=== PATIENT | female | born 2000 | race Caucasian/White ===

== ENCOUNTER 2020-03-18 16:54 | Emergency (ER) | payer OTHER, SELFPAY ==
[2020-03-18 17:15] VITALS: BP 124/86; PULSE 120; RESP 16; TEMP 37.2; O2SAT 98
--- NOTE | 2020-03-18 17:15 | PC.NURSE ---
bite report faxed to [facility] animal control
--- NOTE | 2020-03-18 17:27 | ED.ANIMALBIT ---
HPI - Animal Bite General Chief Complaint: Animal Bite Stated Complaint: amb Time Seen by Provider: 03/18/20 17:27 Source: patient Mode of arrival: ambulatory Limitations: no limitations History of Present Illness HPI narrative: 19-year-old woman brought in today by EMS in today complaining of a dog bite to her left medial ankle. Patient states that her dog was fighting with another dog and she tried to intervene and in doing so was bitten. She denies any numbness, tingling or weakness. She states her immunizations are up-to-date. Within the last week or so she had a positive test at home. complaint: animal bite Onset (ago): hour(s) (2) Animal: dog Description of animal: household pet Mechanism: bite Location - Extremities: Left: ankle Pain description: sharp Context: animals fighting Associated symptoms: bleeding Treatments prior to arrival: wound dressing(s) Related Data Patient tetanus UTD: Yes Home Medications Medication Instructions Recorded Confirmed No Home Medications 03/18/20 03/18/20 Allergies Allergy/AdvReac Type Severity Reaction Status Date / Time No Known Allergies Allergy Verified 03/18/20 17:21 Review of Systems Constitutional: Constitutional: Denies chills and Denies fever(s) Cardiovascular: Cardiovascular: Denies chest pain and Denies radiating jaw, neck or arm pain Respiratory: Respiratory: Denies cough and Denies dyspnea Gastrointestinal: Gastrointestinal: Denies abdominal pain and Denies nausea Integumentary/Breasts: Skin/Breast: Denies pruritus, Denies erythema and Denies rash Neurologic: Denies focal weakness and Denies numbness Hematologic/Lymphatic: Hematologic/Lymphatic: Denies easy bleeding and Denies easy bruising Allergic/Immunologic: Allergic/Immunologic: Denies lip swelling and Denies wheezing [facility] Social History Social History Smoking status: Current every day smoker Alcohol intake: never Substance use: never Exam Const: General: healthy appearing and alert Orientation/consciousness: patient oriented x3 Limitations: no limitations Other: Mild acute distress. Anxious. HENMT: Head: normal to inspection Face and sinus: normal facial exam Eyes: Conjunctivae: conjunctivae normal Pupils: Equal, round and reactive pupils present EOM: EOMs intact bilaterally Resp: Effort & Inspection: normal respiratory effort and not labored Auscultation: clear to auscultation bilaterally, no rales, no rhonchi and no wheezes Cardio: Rate: regular rate Rhythm: regular rhythm Heart sounds: no murmurs Skin: General skin exam: normal color, no jaundice and no pallor Rashes: no rashes Other: 2 cm laceration on the medial ankle. There are a few small puncture wounds present as well as abrasions and bruising. No bleeding, erythema, swelling or induration. Neuro: General: patient oriented x3, moves all extremities, no focal motor deficits and CN's II-XI intact bilaterally Speech: normal speech Gait exam (Neuro): Normal gait present Extrem: General: normal to inspection and no clubbing, cyanosis or edema Psych: Appearance: grossly normal and well kempt Mental Status: mental status grossly normal Affect: normal affect and Anxious affect present Thought content: Yes Normal thought content present Course Vital Signs Vital signs: Vital Signs Temperature 37.2 C 03/18/20 17:15 Pulse Rate 120 H 03/18/20 17:15 Respiratory Rate 16 03/18/20 17:15 Blood Pressure 124/86 03/18/20 17:15 Pulse Oximetry 98 03/18/20 17:15 Temperature 37.2 C 03/18/20 17:15 Pulse Rate 120 H 03/18/20 17:15 Respiratory Rate 16 03/18/20 17:15 Blood Pressure 124/86 03/18/20 17:15 Pulse Oximetry 98 03/18/20 17:15 Discharge Plan Discharge Clinical Impression: Dog bite Patient Disposition: Home, Self-Care Condition: Stable Instructions: Animal Bite (ED) Additional Instruction
== END 2020-03-18 17:47 | disposition home or self-care (01) ==
PROVIDERS: Emergency Provider Emergency Medicine
DX: S91.052A Open bite, left ankle, initial encounter (principal); W54.0XXA Bitten by dog, initial encounter
CPT/HCPCS: 99283

== ENCOUNTER 2022-06-13 13:04 | Emergency (ER) | payer OTHER, SELFPAY ==
--- NOTE | 2022-06-13 13:19 | ED.FEMALEGU ---
HPI - Female Genitourinary General Chief complaint: Urogenital-Female Stated complaint: dr sent patient to er Time Seen by Provider: 06/13/22 13:06 Source: patient and RN notes reviewed Mode of arrival: ambulatory Limitations: no limitations History of Present Illness HPI Narrative: patient had gone her health technical writer was diagnosed with a urinary tract infection started on antibiotics. She only took 1 dose last evening. She was then called by the health technical writer and told to come to the emergency room if she had worsening pain or fever. She said she had a fever at home. She has been having some nausea no vomiting. She had bilateral flank pain. MD elicited complaint: UTI and flank pain Onset (ago): day(s) (5-7) Severity: moderate Quality of pain: dull and aching Consistency: constant Vaginal discharge: none Vaginal bleeding: none Urinary symptoms: Dysuria, Urgency and Frequency Exacerbating factors: urination Relieving factors: none Associated symptoms: fever, chills and nausea Possible : unsure if Related Data Home Medications Medication Instructions Recorded Confirmed bupropion HCl 150 mg 24 hr tablet, 150 mg PO DAILY 06/13/22 06/13/22 extended release venlafaxine 75 mg capsule,extended 75 mg PO DAILY 06/13/22 06/13/22 release 24 hr Allergies Allergy/AdvReac Type Severity Reaction Status Date / Time No Known Allergies Allergy Verified 03/18/20 17:21 Review of Systems Review of Systems: All systems reviewed & are unremarkable except as noted in HPI and below PMFSH Past Medical History Medical History (Updated 06/13/22 @ 14:33 by Franky Winston MD) Depression Surgical History Surgical History (Updated 06/13/22 @ 13:23 by Franky Winston MD) History of incision and drainage Social History Social History Smoking status: Current every day smoker Alcohol intake: never Substance use: never Course Vital Signs Vital signs: Vital Signs Temperature 39.0 C H 06/13/22 13:22 Pulse Rate 136 H 06/13/22 13:22 Respiratory Rate 20 06/13/22 13:22 Blood Pressure 162/86 H 06/13/22 13:22 Pulse Oximetry 100 06/13/22 13:22 Oxygen Delivery Room Air 06/13/22 13:22 Temperature 37.7 C H 06/13/22 14:58 Pulse Rate 87 06/13/22 14:58 Respiratory Rate 20 06/13/22 14:58 Blood Pressure 118/70 06/13/22 14:58 Pulse Oximetry 97 06/13/22 14:58 Oxygen Delivery Room Air 06/13/22 14:58 MDM - Female Genitourinary Differential Diagnosis Differential diagnosis: Likely urinary tract infection, cystitis and other ( pyelonephritis) Lab Data Attestation: I reviewed the patient's lab results. Result diagrams: 06/13/22 13:38 06/13/22 13:38 Labs: Lab Results 06/13/22 06/13/22 06/13/22 Range/Units 13:24 13:27 13:38 WBC 11.8 H (4.8-10.8) K/mm3 RBC 3.97 L (4.20-5.40) M/mm3 Hgb 11.9 L (12.0-15.0) g/dL Hct 35.7 (35.0-49.0) % MCV 89.9 (78.0-102.0) fL MCH 30.0 (27.0-31.0) pg MCHC 33.3 (32.0-36.0) g/dL RDW 12.0 (11.6-14.4) % Plt Count 233 (150-420) K/mm3 MPV 10.3 (9.2-11.8) fl Immature Gran % (Auto) 0.3 H (0.0-0.0) % Neut % (Auto) 80.1 H (50.0-70.0) % Lymph % (Auto) 10.5 L (18.0-42.0) % [place] % (Auto) 8.5 (2.0-11.0) % Eos % (Auto) 0.3 L (1.0-6.0) % Baso % (Auto) 0.3 (0.0-1.0) % Lymph # (Auto) 1.23 (1.10-4.50) K/mm3 [place] # (Auto) 1.00 H (0.10-0.90) K/mm3 Eos # (Auto) 0.03 (0.02-0.50) K/mm3 Baso # (Auto) 0.03 (0.00-0.10) K/mm3 Abs Immat Gran (auto) 0.04 H (0.00-0.00) K/mm3 Absolute Neuts (auto) 9.4 H (1.7-7.2) K/mm3 Absolute Nucleated RBC 0.00 (0.00-0.00) K/mm3 Nucleated RBC % 0.0 (0-0.0) % Sodium (136-145) mmol/L Potassium (3.5-5.1) mmol/L Chloride (98-108) mmol/L Carbon Dioxide (21-32) mmol/L Anion Gap (8-16) mmol/L BUN (7-18) m
[2022-06-13 13:22] VITALS: BP 162/86; PULSE 136; RESP 20; TEMP 39; O2SAT 100
--- NOTE | 2022-06-13 13:24 | PC.NURSE ---
PCT assisted Dr with examination.
[2022-06-13 13:34] LABS: Appearance Urine Clear (Clear); Bilirubin Urine Negative (Negative); Glucose Urine UA Negative (Negative); Ketones Urine Negative (Negative); Leukocyte Esterase Ur Trace LEU/UL (Negative); Nitrate Urine Negative (Negative); Protein Urine Negative (Negative); Specific Grav Ur 1.015 (1.010-1.020); Urobilinogen Urine 0.2 mg/dL (0.2-1.0)
[2022-06-13] MEDS: IBUPROFEN 600 MG TABLET PO (13:34)
[2022-06-13 13:38] LABS: Pregnancy On Board Control Positive; Urine Pregnancy Test Negative
[2022-06-13 13:43] LABS: Add Urine Microscopic? YES; Bacteria Urine 1+ /hpf; Blood Urine Trace-Intact (Negative); Color Urine Light Yellow (Yellow); Squamous Epithelial Cell Urine Rare /hpf (Few)
[2022-06-13 13:44] LABS: Basophils Absolute Auto 0.03 K/mm3 (0.00-0.10); Basophils Percent Auto 0.3 % (0.0-1.0); Eosinophils Absolute Auto 0.03 K/mm3 (0.02-0.50); Eosinophils Percent Auto 0.3 % (1.0-6.0); Hematocrit 35.7 % (35.0-49.0); Hemoglobin 11.9 g/dL (12.0-15.0); Immature Granulocyte Absolute 0.04 K/mm3 (0.00-0.00); Immature Granulocyte Percent A 0.3 % (0.0-0.0); Lymphocytes Absolute Auto 1.23 K/mm3 (1.10-4.50); Lymphocytes Percent Auto 10.5 % (18.0-42.0); Mean Corpuscular HGB Conc 33.3 g/dL (32.0-36.0); Mean Corpuscular Volume 89.9 fL (78.0-102.0); Mean Platelet Volume 10.3 fl (9.2-11.8); Monocytes Percent Auto 8.5 % (2.0-11.0); Neutrophils Absolute Auto 9.4 K/mm3 (1.7-7.2); Neutrophils Percent Auto 80.1 % (50.0-70.0); Platelet Count Result 233 K/mm3 (150-420); Red Blood Count 3.97 M/mm3 (4.20-5.40); White Blood Count 11.8 K/mm3 (4.8-10.8)
[2022-06-13 13:58] LABS: Alanine Aminotransferase 13 U/L (14-59); Albumin Level 3.5 g/dL (3.4-5.0); Alkaline Phosphatase 72 U/L (46-116); Anion Gap 6 mmol/L (8-16); Aspartate Amino Transferase < 10 U/L (15-37); Bilirubin,Total 0.3 mg/dL (0.00-1.00); Blood Urea Nitrogen 6 mg/dL (7-18); CRP 8.9 mg/dL (0.0-0.9); Calcium 8.7 mg/dL (8.5-10.1); Carbon Dioxide 26 mmol/L (21-32); Chloride 103 mmol/L (98-108); Estimated CRCL calculation 86 ml/min; Estimated Glomerular Filt Rate > 60; Glucose 107 mg/dL (70-99); Osmolality Calculated 277 mOsm/kg (285-295); Potassium 3.8 mmol/L (3.5-5.1); Sodium 135 mmol/L (136-145); Total Protein 7.8 g/dL (6.4-8.2)
[2022-06-13 14:06] VITALS: TEMP 38.6
--- NOTE | 2022-06-13 14:09 | PC.NURSE ---
pt resting per cot, playing with cell phone, friend at bedside.
[2022-06-13] MEDS: cefTRIAXone 1 GM, LIDOCAINE HCL 1% LOCAL INJ 2.1 ML IM (14:52)
[2022-06-13 14:58] VITALS: BP 118/70; PULSE 87; RESP 20; TEMP 37.7; O2SAT 97
== END 2022-06-13 15:04 | disposition home or self-care (01) ==
PROVIDERS: Emergency Provider Emergency Medicine
DX: N30.01 Acute cystitis with hematuria (principal)
CPT/HCPCS: 36415; 80053; 81001; 81025; 83605; 85025; 86140; 87040; 96372; 99283; A9270; J0696

== ENCOUNTER 2024-08-09 17:44 | Emergency (ER) | payer OTHER, SELFPAY ==
[2024-08-09 17:45] VITALS: BP 136/80; PULSE 88; RESP 14; TEMP 36.4; O2SAT 98
--- NOTE | 2024-08-09 17:54 | ED_ITS ---
HPI - Dental/Oral General Chief complaint: Dental/Oral Stated complaint: dental pain Time Seen by Provider: 08/09/24 17:48 Source: patient Mode of arrival: ambulatory Limitations: no limitations History of Present Illness HPI Narrative: Patient drove herself to the emergency room complaining of frontal upper dental pain started 2 days ago. Patient denies any fever, chills, nausea, vomiting, headache, trouble swallowing or breathing or recent trauma. Last time was seen by a dentist 1 year ago with a lot of dental caries management. Related Data Home Medications ?Medication ?Instructions ?Recorded ?Confirmed ?Last Taken ?Type guanfacine 1 mg tablet,extended 1 mg PO QPM 08/09/24 08/09/24 Unknown History release 24 hr Allergies Allergy/AdvReac Type Severity Reaction Status Date / Time No Known Allergies Allergy Verified 08/09/24 17:50 Review of Systems Review of Systems: All systems reviewed & are unremarkable except as noted in HPI and below PMFSH Past Medical History Medical History Depression Surgical History Surgical History History of incision and drainage Social History Social History Smoking status: Current every day smoker Alcohol intake: never Substance use: never Exam Narrative: General appearance: Well-developed, well-nourished Skin: Normal color Head: Normocephalic, nontraumatic Eyes: Clear conjunctiva ENT: upper gum showing localize gingivitis at the front incisors, no abscess formation, no discharge, no bleeding Neck: Supple, nontender Neurologic: Alert and oriented ?3, MATERIAL CONTROL CLERK is normal as tested, no gross motor deficit MDM - Dental/Oral MDM Narrative Medical decision making narrative: gingivitis, dental infection is my concern Differential Diagnosis Differential diagnosis: Likely dental caries and toothache Critical Care Time Critical Care Time Critical Care Time: No Discharge Plan Discharge Clinical Impression: Toothache, Gingivitis Patient Disposition: Home, Self-Care Condition: Stable Instructions: Antibiotic Form, Gingivitis (ED), Toothache (ED) Additional Instructions: Return if symptoms are worsening , call your family physician for appointment, take Tylenol as as needed for aches and pain, continue home medications. Patient Language: Estonian Prescriptions: New ibuprofen [IBU] 800 mg tablet 800 mg PO TID Qty: 20 0RF penicillin V potassium 500 mg tablet 500 mg PO Q6H Qty: 40 0RF No Action guanfacine 1 mg tablet extended release 24 hr 1 mg PO QPM Follow-up/Referrals: UNKNOWN,DOCTOR [Primary Care Provider] - Stand Alone Forms: Work/School Release IP
--- OUTSIDE RECORDS SUMMARY | 2024-08-16 21:33 | XMS_ITS | Encounter Summary ---
Author Organization [facility] Address [address] [place] [address]. [place], [place] [id number] [place] [id number] Care Team Providers Care Tool Filer Hand Name Role Phone None, Provider Primary Care Provider Unavaila ble Encounter Details Date Type Department Care Team (Latest Contact Info) Description 06/30/2020 Travel Social History Tobacco Use Types Packs/Day Years Used Date Smoking Tobacco: Every Day Cigarettes 0.5 5 Smokeless Tobacco: Never Alcohol Use Standard Drinks/Week Comments No 0 (1 standard drink = 0.6 oz pur e alcohol) AUDIT-C Answer Date Recorded Frequency of Alcohol Consumption Never 05/23/2019 Average Number of Drinks Not on file 019 Frequency of Binge Drinking Not on file 05/12 Comments Yes Sex and Gender Information Value Date Recorded Sex Assigned at Not on file Legal 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 No / Unsure 06/30/2020 2:20 AM STEM MOUNTER documented as of this encounter Plan of Treatment Not on file documented as of this encounter Visit Diagnoses Not on filedocumented in this encounter Care Teams Tool Filer Hand Relationship Specialty Start Date End Date None, Provider, PCP - General 05/23/19 documented as of this encounter
--- OUTSIDE RECORDS SUMMARY | 2024-08-16 21:33 | XMS_ITS | Encounter Summary ---
Author Organization [facility] Address [address] [place] [address]. [place], [place] [id number] [place] [id number] Care Team Providers Care Family Law Specialist Name Role Phone None, Provider Primary Care Provider Unavaila ble Encounter Details Date Type Department Care Team (Latest Contact Info) Description 01/25/2020 Travel Social History Tobacco Use Types Packs/Day Years Used Date Smoking Tobacco: Every Day Cigarettes 0.5 5 Smokeless Tobacco: Never Alcohol Use Standard Drinks/Week Comments No 0 (1 standard drink = 0.6 oz pur e alcohol) AUDIT-C Answer Date Recorded Frequency of Alcohol Consumption Never 05/23/2019 Average Number of Drinks Not on file 019 Frequency of Binge Drinking Not on file 05/12 Comments No Sex and Gender Information Value Date Recorded Sex Assigned at Not on file Legal 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 No / Unsure 01/25/2020 4:01 PM CDT documented as of this encounter Plan of Treatment Not on file documented as of this encounter Visit Diagnoses Not on filedocumented in this encounter Care Teams Family Law Specialist Relationship Specialty Start Date End Date None, Provider, PCP - General 05/23/19 documented as of this encounter
--- OUTSIDE RECORDS SUMMARY | 2024-08-16 21:33 | XMS_ITS | Encounter Summary ---
Author Organization [facility] Address [address] [place] [address]. [place] [address] [place] [address] Care Team Providers Care Slagger Name Role Phone None, Provider MD Primary Care Provider Unavaila ble Reason for Referral * (Routine) - Closed Specialty Diagnoses / Procedures Referred By Contdanny t Referred To Contact Procedures LACERATION REPAIR Gilles Abbott DO Phone: tel: fax: Referral ID Status Reason Start Date Expiration Date Visits Re quested Visits Authorized [id number] Closed 05/23/2019 06/23/2020 1 1 Reason for Visit * Reason Comments Laceration left wrist Encounter Details Date Type Department Care Team (Late st Contact Info) Description 05/23/2019 12:55 AM CDT - 05/23/2019 2:14 AM CDT Emergency [place] [facility] [place] [address] Gilles Abbott DO [address] [place] [address] Laceration (left wrist) Discharge Disposition: Home or Self Care (Routine Discharge) Social History Tobacco Use Types Packs/Day Years Used Date Smoking Tobacco: Every Day Cigarettes 0.5 5 Smokeless Tobacco: Never Tobacco Cessation:Ready to Q uit: No; Counseling Given: No Alcohol Use Standard Drinks/Week Comments No 0 (1 standard drink = 0.6 oz pur e alcohol) AUDIT-C Answer Date Recorded Frequency of Alcohol Consumption Never 05/23/2019 Average Number of Drinks Not on file Frequency of Binge Drinking Not on file 05/12 Comments No Sex and Gender Information Value Date Recorded Sex Assigned at Not on file 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 Gender Identity Not on file Sexual Orientation Not on file documented as of this encounter Last Filed Vital Signs Vital Sign Reading Time Taken Comments Blood Pressure 144/87 05/23/2019 12:54 AM CDT Pulse 124 05/23/2019 12:54 AM CDT Temperature - - Respiratory Rate 22 05/23/2019 12:54 AM CDT Oxygen Saturation 99% 05/23/2019 12:57 AM CDT Inhaled Oxygen Concentration - - Weight 61.2 kg (135 lb) 05/23/2019 12:54 AM CDT Height 154.9 cm (5' 1 ) 05/23/2019 12:54 AM CDT Body Mass Index 25.51 05/23/2019 12:54 AM CDT documented in this encounter Discharge Instructions * Discharge Instructions* Gilles Abbott DO - 05/23/2019 1:52 AM CDT Leave dressing in place for 24 hours. After removing the dressing, you can leave stitches open to air. You should cover them if they are likely to be disturbed by your activity. Once the dressing is removed, you can shower and let water run over the stitches, but do not soak the stitches under water such as swimming or bathing. Your stitches will need to be removed in 7-10 days. * Attachments The following attachments cannot be sent through Care Everywhere. * Laceration Repair With Stitches Discharge Instructions (Stateless) documented in this encounter ED Notes * Zenia Martinez RN - 05/23/2019 2:08 AM CDT put 8 sutures in. Site cleansed and dressing applied * Gilles Abbott DO - 05/23/2019 1:04 AM CDTAssociated Order(s): Lac Repair Chief Complaint Chief Complaint Patient presents with ??? Laceration left wrist History of Present Illness 18-year-old female presents the emergency department with a laceration of her left forearm. The patient states that she was opening a box of light bulbs from [facility] when she accidentally cut her arm with a hot box spotter. She denies any attempt to harm herself. She reports that she ran the wound under warm water for less than 5 minutes prior to coming to the emergency department. She deniesany loss of function of her wrist or hand. She reports that otherwise she has been in her normal state of health. 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 No pertinent past medical history. PAST SURGICAL HISTORY: History reviewed. No pertinent surgical history. FAMILY HISTORY: Family History Family history unknown: Yes SOCIAL HISTORY: Social History Tobacco Use ??? Smoking status: Current Every Day Smoker Packs/day: 0.50 Years: 5.00 Pack years: 2.50 Types: Cigarettes ??? Smokeless tobacco: Never Used Substance Use Topics ??? Alcohol use: No Frequency: Never ??? Drug use: No Review of Systems Review of Systems All other systems reviewed and are negative. Physical Exam Filed Vitals: 05/23/19 0054 05/23/19 0057 BP: 144/87 Pulse: 124 Resp: 22 SpO2: 99% 99% Weight: 61.2 kg (135 lb) Height: 5' 1 (1.549 m) Physical Exam Constitutional: She is oriented to person, place, and time. She appears well- developed and well-nourished. No distress. HENT: Head: Normocephalic and atraumatic. Eyes: Conjunctivae are normal. Pulmonary/Chest: Effort normal and breath sounds normal. No respiratory distress. Neurological: She is alert and oriented to person, place, and time. Skin: She is not diaphoretic. 8 cm laceration of the distal ventral forearm perpendicular to the arm Psychiatric: She has a normal mood and affect. Her behavior is normal. Judgment and thought contentnormal. Nursing note and vitals reviewed. Diagnostic Studies / Procedures ELECTROCARDIOGRAMS: No results found for this visit on 05/23/19. LABORATORY STUDIES: No results found for this visit on 05/23/19. IMAGING STUDIES No orders to display Lac Repair Date/Time: 05/23/2019 1:50 AM Performed by: Gilles Abbott DO Authorized by: Gilles Abbott DO Consent: Consent obtained: Verbal Consent given by: Patient Risks discussed: Infection, pain and poor cosmetic result Alternatives discussed: No treatment and delayed treatment Anesthesia (see MAR for exact dosages): Anesthesia method: Local infiltration Local anesthetic: Lidocaine 1% WITH epi Laceration details: Location: Shoulder/arm Shoulder/arm location: L lower arm Length (cm): 8 Repair type: Repair type: Simple Pre-procedure details: Preparation: Patient was prepped and draped in usual sterile fashion Exploration: Hemostasis achieved with: Epinephrine and direct pressure Wound exploration: wound explored through full range of motion and entire depth of wound probed andvisualized Wound extent: no fascia violation noted, no foreign bodies/material noted, no muscle damage noted, no nerve damage noted, no tendon damage noted and no vascular damage noted Contaminated: no Treatment: Area cleansed with: Betadine Amount of cleaning: Standard Skin repair: Repair method: Sutures Suture size: 4-0 Suture material: Nylon Suture technique: Simple interrupted Number of sutures: 8 Approximation: Approximation: Close Post-procedure details: Dressing: Antibiotic ointment and non-adherent dressing Patient tolerance of procedure: Tolerated well, no immediate complications ED Course / Medical Decision Making MDM Number of Diagnoses or Management Options Laceration of left upper extremity, initial encounter: new and does not require workup Risk of Complications, Morbidity, and/or Mortality Presenting problems: moderate Diagnostic procedures: minimal Management options: minimal Patient Progress Patient progress: improved Clinical Impression Laceration of left upper extremity, initial encounter (Primary) Disposition: Discharge Gilles Abbott DO 05/23/19 0157 * Aurea Singer RN - 05/23/2019 12:57 AM CDT Cutting box open and cut left wrist 3 in lac to left wrist documented in this encounter Plan of Treatment Not on file documented as of this encounter Procedures Procedure Name Priority Date/Time Associated Diagnosis Comments LACERATION REPAIR Routine 05/23/2019 1:0 4 AM CDT documented in this encounter Results * Lac Repair (05/23/2019 1:04 AM CDT) Narrative Gilles Abbott DO - 05/23/2019 1:04 AM CDT Gilles Abbott DO ? 05/23/2019 ??1:57 AM Lac Repair Date/Time: 05/23/2019 1:50 AM Performed by: Gilles Abbott DO Authorized by: Gilles Abbott DO Consent: ??Consent obtained: ??Verbal ??Consent given by: ??Patient ??Risks discussed: ??Infection, pain and poor cosmetic result ??Alternatives discussed: ??No treatment and delayed treatment Anesthesia (see MAR for exact dosages): ??Anesthesia method: ??Local infiltration ??Local anesthetic: ??Lidocaine 1% WITH epi Laceration details: ??Location: ??Shoulder/arm ??Shoulder/arm location: ??L lower arm ??Length (cm): ??8 Repair type: ??Repair type: ??Simple Pre-procedure details: ??Preparation: ??Patient was prepped and draped in usual sterile fashion Exploration: ??Hemostasis achieved with: ??Epinephrine and direct pressure ??Wound exploration: wound explored through full range of motion and entire depth of wound probed and visualized ?Wound extent: no fascia violation noted, no foreign bodies/material noted, no muscle damage noted, no nerve damage noted, no tendon damage noted and no vascular damage noted ?Contaminated: no ?? Treatment: ??Area cleansed with: ??Betadine ??Amount of cleaning: ??Standard Skin repair: ??Repair method: ??Sutures ??Suture size: ??4-0 ??Suture material: ??Nylon ??Suture technique: ??Simple interrupted ??Number of sutures: ??8 Approximation: ??Approximation: ??Close Post-procedure details: ??Dressing: ??Antibiotic ointment and non-adherent dressing ??Patient tolerance of procedure: ??Tolerated well, no immediate complications Gilles Abbott DO PROCEDURE/MINOR SURGICAL ORDERAB LES Final Result documented in this encounter Visit Diagnoses Diagnosis Laceration of left upper extremity, initial encounter- Primary documented in this encounter Administered Medications Inactive Administered Medications - up to 3 most recent administrations Medication Order MAR Action Action Date Dose Rate Site lidocaine-EPINEPHrine 1 %-1:172034 injection 1 mL 1 mL, Other, Once, 1 dose, On 05/23/19 at 0200 Given 05/23/2019 1:58 AM CDT 1 mL ioybvuet-whkwkilccu-jhgvzgxxk (NEOSPORIN) ointment Topical, Once, 1 dose, On 05/23/19 at 0200 Given 05/23/2019 1:58 AM CDT documented in this encounter Active and Recently Administered Medications Times are shown in CDT. Scheduled Medication Order 05/21/2019 05/22/2019 05/23/2019 lidocaine-EPINEPHrine 1 %-1:312323 injection 1 mL (COMPLETED) 1 mL, Other, Once, 1 dose, On 05/23/19 at 0200 0158 (Given - Provid er: Zenia Martinez RN) tumgjhjq-dhquqmbbop-kiextehei (NEOSPORIN) ointment (COMPLETED) Topical, Once, 1 dose, On 05/23/19 at 0200 0158 (Given - Provid er: Zenia Martinez RN) documented in this encounter Care Teams Slagger Relationship Specialty Start Date End Date None, Provider, PCP - General 05/23/19 documented as of this encounter
--- OUTSIDE RECORDS SUMMARY | 2024-08-16 21:33 | XMS_ITS | Encounter Summary ---
Author Organization [facility] Address [address] [place] [address]. [place] [address] [place] [address] Care Team Providers Care Deck Worker Name Role Phone None, Provider Primary Care Provider Unavaila ble Reason for Visit * Reason Comments Animal Bite Encounter Details Date Type Department Care Team (Late st Contact Info) Description 01/25/2020 4:23 PM CDT - 01/25/2020 6:55 PM CDT Emergency [facility] [place] [address] Diego Velasquez MD [address] [place] [id number] Animal Bite Discharge Disposition: Home or Self Care (Routine [...] on file Legal Sex Female 5:53 PM 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 No / Unsure 01/25/2020 4:01 PM CDT documented as of this encounter Last Filed Vital Signs Vital Sign Reading Time Taken Comments Blood Pressure 110/77 01/25/2020 6:00 PM CDT Pulse 80 01/25/2020 4:23 PM CDT Temperature 36.6 ??C (97.8 ??F) 01/25/2020 4:23 PM CD T Respiratory Rate 20 01/25/2020 4:23 PM CDT Oxygen Saturation 100% 01/25/2020 6:00 PM CDT Inhaled Oxygen Concentration - - Weight 61.2 kg (135 lb) 01/25/2020 4:23 PM CDT Height 154.9 cm (5' 1 ) 01/25/2020 4:23 PM CDT Body Mass Index 25.51 01/25/2020 4:23 PM CDT documented in this encounter Discharge Instructions * Discharge Instructions* Diego Velasquez MD - 01/25/2020 5:45 PM CDT You need repeat rabies shot in 3 days, 7 days and 14 days * Attachments The following attachments cannot be sent through Care Everywhere. * Animal Bites Discharge Instructions (Mauritanian) * Rabies Discharge Instructions (Mauritanian) documented in this encounter Medications at Time of Discharge amoxicillin-clavu lanate (AUGMENTIN) 875-125 MG tablet Take 1 tablet (875 mg total) by mouth 2 (two) times daily for 10 days. 20 tablet 01/25/2020 02/04/2020 documented as of this encounter ED Notes * Diego Velasquez MD - 01/25/2020 6:55 PM CDT Chief Complaint Chief Complaint Patient presents with ??? Animal Bite History of Present Illness 19-year-old dog bite since Saturday night to the right hand. Patient was bitten by a stray dog. Patient denies fever since Saturday. Patient does not remember her last tetanus shot. There is no way for the patient to track down the stray dog. Medical History ALLERGIES: No Known Allergies MEDICATIONS: Prior to Admission medications Medication Sig Start Date End Date Taking? Authorizing Provider amoxicillin-clavulanate (AUGMENTIN) 875-125 MG tablet Take 1 tablet (875 mg total) by mouth 2 (two)times daily for 10 days. 01/25/20 02/04/20 Yes Diego Velasquez MD PAST MEDICAL HISTORY: History reviewed. No pertinent [...] No Review of Systems Review of Systems Constitutional: Negative for fever. HENT: Negative for voice change. Respiratory: Negative for wheezing. Skin: Positive for wound. Neurological: Negative for speech difficulty. Psychiatric/Behavioral: Negative for agitation. All other systems reviewed and are negative. Physical Exam Filed Vitals: 01/25/20 1623 01/25/20 1630 01/25/20 1730 01/25/20 1800 BP: 116/77 113/73 109/70 110/77 Pulse: 80 Resp: 20 Temp: 97.8 ??F (36.6 ??C) TempSrc: Temporal SpO2: 99% 99% 98% 100% Weight: 61.2 kg (135 lb) Height: 5' 1 (1.549 m) Physical Exam Constitutional: She appears well-developed. HENT: Head: Atraumatic. Eyes: EOM are normal. Neck: Normal inspection Cardiovascular: Normal rate and regular rhythm. No murmur heard. Pulmonary/Chest: Breath sounds normal. No stridor. No respiratory distress. She has no wheezes. Abdominal: She exhibits no distension. Musculoskeletal: She exhibits no edema. Right hand-puncture wound noted in the thenar aspect as well as the volar aspect of the proximal phalanx and the volar aspect of the distal phalanx, there is also a puncture wound on the dorsal webspace of the first and second metacarpal, wounds are dry with no bleeding, wounds are partially healing with no surrounding erythema, patient has full range of motion of the right thumb MCP and PIP joint, normal capillary refill of the distal right thumb Neurological: She is alert. She exhibits normal muscle tone. Skin: Skin is dry. Psychiatric: She has a normal mood and affect. Diagnostic Studies / Procedures ELECTROCARDIOGRAMS: No results found for this visit on 01/25/20. LABORATORY STUDIES: No results found for this visit on 01/25/20. IMAGING STUDIES XR HAND RT 3V Final Result by User, [id number] (01/24 1655) 01/25/2020, 0641 hours. HISTORY: Dog bite near base of the thumb. EXAM: AP, lateral and oblique views of the right hand. No comparison. FINDINGS: No fracture or acute bony abnormality. No arthritic change. No gross bone destruction. No opaque foreign material nor gas seen within the soft tissues. IMPRESSION: No acute bony abnormality. Interpreted By: Deniz Fowler MD, 01/25/2020 4:50 PM ED Course / Medical Decision Making MDM Number of Diagnoses or Management Options Dog bite, initial encounter: new and requires workup Rabies, unspecified rabies type: new and requires workup Amount and/or Complexity of Data Reviewed Tests in the radiology section of CPT??: ordered and reviewed Risk of Complications, Morbidity, and/or Mortality Presenting problems: moderate Diagnostic procedures: moderate Management options: moderate Patient Progress Patient progress: stable Clinical Impression Dog bite, initial encounter (Primary) Rabies, unspecified rabies type Discharged on Augmentin, patient will need to return to the ED for rabies series Disposition: Discharge Diego Velasquez MD 01/26/20 0423 * Isadora Ricardo RN - 01/25/2020 6:45 PM CDT Bandaids applied to wounds * Isadora Ricardo RN - 01/25/2020 6:25 PM CDT Apprx 3.2 ml injected subcutaneous around wounds (3 areas) on right hand. Pt tolerated fairly well. Remainder 5 ml given IM in two separate injections in both deltoids. * Ailyn Gunderson RN - 01/25/2020 4:24 PM CDT PT C/O DOG BITE TO RT HAND. PT REPORTS WAS BITTEN BY STRAY DOG ON Saturday. documented in this encounter Plan of Treatment Not on file documented as of this encounter Procedures Procedure Name Priority Date/Time Associated Diagnosis Comments XR HAND RT 3V STAT 01/25/2020 4:47 PM CDT documented in this encounter Results * XR HAND RT 3V (01/25/2020 4:47 PM CDT) Anatomical Region Laterality Modality Hand Radiographic Kami ging 01/25/2020 4:50 PM CDT Impressions 01/25/2020 4:54 PM CDT IMPRESSION: No acute bony abnormality. Interpreted By: Deniz Fowler MD, 01/25/2020 4:50 PM Narrative 01/25/2020 4:54 PM CDT 01/25/2020, 0641 hours. HISTORY: Dog bite near base of the thumb. EXAM: AP, lateral and oblique views of the right hand. No comparison. FINDINGS: No fracture or acute bony abnormality. No arthritic change. No gross bone destruction. No opaque foreign material nor gas seen within the soft tissues. Procedure Note Deniz Fowler MD - 01/25/2020 01/25/2020, 0641 hours. HISTORY: Dog bite near base of the thumb. EXAM: AP, lateral and oblique views of the right hand. No comparison. FINDINGS: No fracture or acute bony abnormality. No arthritic change. No gross bone destruction. No opaque foreign material nor gas seen withinthe soft tissues. IMPRESSION: No acute bony abnormality. Interpreted By: Deniz Fowler MD, 01/25/2020 4:50 PM Diego Velasquez MD GENERAL IMAGING Final Result documented in this encounter Visit Diagnoses Diagnosis Dog bite, initial encounter- Primary Rabies, unspecified rabies type ([facility]) documented in this encounter Administered Medications Inactive Administered Medications - up to 3 most recent administrations Medication Order MAR Action Action Date Dose Rate Site amoxicillin-clavulanate (AUGMENTIN) 875-125 MG tablet 875 mg 875 mg, Oral, Once, 1 dose, On 01/25/20 at 1730 Given 01/25/2020 6:19 PM CDT 875 mg rabies immune globulin (HYPERRAB) injection 1,230 Units 1,230 Units (rounded from 1,224 Units = 20 Units/kg ? 61.2 kg), Intramuscular, Once, 1 dose, On Sat01/25/20 at 1800 Given 01/25/2020 6:17 PM CDT 1,230 Units Other rabies vaccine (RABAVERT) injection 1 mL 1 mL, Intramuscular, Once, 1 dose, On Franca 01/28/20 at 0000 rabies vaccine (RABAVERT) injection 1 mL 1 mL, Intramuscular, Once, 1 dose, On Sat02/01/20 at 0000 rabies vaccine (RABAVERT) injection 1 mL 1 mL, Intramuscular, Once, 1 dose, On Sat02/08/20 at 0000 documented in this encounter Active and Recently Administered Medications Times are shown in CDT. Scheduled Medication Order 01/23/2020 01/24/2020 01/25/2020 amoxicillin-clavulanate (AUGMENTIN) 875-125 MG tablet 875 mg (COMPLETED) 875 mg, Oral, Once, 1 dose, On Sat01/25/20 at 1730 1819 (Given - Provid er: Isadora Ricardo RN) rabies immune globulin (HYPERRAB) injection 1,230 Units (COMPLETED) 1,230 Units (rounded from 1,224 Units = 20 Units/kg ? 61.2 kg), Intramuscular, Once, 1 dose, On Sat01/25/20 at 1800 1817 (Given - Provid er: Isadora Ricardo RN - Comment: rt hand and left deltoid) rabies vaccine (RABAVERT) injection 1 mL 1 mL, Intramuscular, Once, 1 dose, On Franca 01/28/20 at 0000 rabies vaccine (RABAVERT) injection 1 mL 1 mL, Intramuscular, Once, 1 dose, On Sat02/01/20 at 0000 rabies vaccine (RABAVERT) injection 1 mL 1 mL, Intramuscular, Once, 1 dose, On Sat02/08/20 at 0000 documented in this encounter Care Teams Deck Worker Relationship Specialty Start Date End Date None, Provider, PCP - General 05/23/19 documented as of this encounter
--- OUTSIDE RECORDS SUMMARY | 2024-08-16 21:33 | XMS_ITS | Encounter Summary ---
Author Organization [facility] Address [facility] [place] [address] [place] [address] Care Team Providers Care Outsole Compressor Name Role Phone Unavailable Primary Care Provider Unavailabl e Encounter Details Date Type Department Care Team (Late st Contact Info) Description 07/31/2018 Abstract [facility] [address] [address] April Pickett MD [address] [place] [address], [address] [place] [address] Social History Tobacco Use Types Packs/Day Years Used Date Smoking Tobacco: Never Assessed Comments Unknown Sex and Gender Information Value Date Recorded Sex Assigned at Not on file Legal Sex Female 5:53 PM REAL ESTATE 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 Gender Identity Not on file Sexual Orientation Not on file documented as of this encounter Plan of Treatment Not on file documented as of this encounter Procedures Procedure Name Priority Date/Time Associated Diagnosis Comments STREP A, DNA Routine 07/31/2018 3:55 PM REAL ESTATE COORDINATOR RAPID STREP A STAT 07/31/2018 3:55 PM REAL ESTATE COORDINATOR documented in this encounter Results * STREP A, DNA (07/31/2018 3:55 PM REAL ESTATE COORDINATOR) SPEC DESCRIPTION THROAT 07/31/2018 5:13 PM REAL ESTATE COORDINATOR [facility] SPECIAL REQUESTS NO SPECIAL REQUEST 07/31/2018 5:13 PM REAL ESTATE COORDINATOR [facility] RESULT NEGATIVE 07/31/2018 6:11 PM REAL ESTATE COORDINATOR [facility] THROAT SWAB / Unknown 07/31/2018 3:55 PM REAL ESTATE COORDINATOR 07/31/2018 5:12 PM REAL ESTATE COORDINATOR us Generic Conversion Md [facility] - GENERAL ORDERABLES Final Result Performing Organization Address City/[facility]/ZIP Co de Phone Number [facility] [address] [place] [address], * RAPID STREP A (07/31/2018 3:55 PM REAL ESTATE COORDINATOR) SPEC DESCRIPTION THROAT 07/31/2018 4:57 PM REAL ESTATE COORDINATOR [facility] SPECIAL REQUESTS NO SPECIAL REQUEST 07/31/2018 4:57 PM REAL ESTATE COORDINATOR [facility] RAPID STREP TEST NEGATIVE 07/31/2018 5:12 PM REAL ESTATE COORDINATOR [facility] THROAT SWAB / Unknown 07/31/2018 3:55 PM REAL ESTATE COORDINATOR 07/31/2018 5:00 PM REAL ESTATE COORDINATOR us Generic Conversion Md [facility] - GENERAL ORDERABLES Final Result Performing Organization Address [facility] Co de Phone Number [facility] [address] [place] [address], documented in this encounter Visit Diagnoses Diagnosis Respiratory system disease complicating in second trimester (HHS/HCC) Other current maternal conditions classifiable elsewhere, antepartum documented in this encounter
--- OUTSIDE RECORDS SUMMARY | 2024-08-16 21:33 | XMS_ITS | Encounter Summary ---
Author Organization [facility] Address [address] [place] [address]. [place] [address] [place] [address] Care Team Providers Care Online Tutor Name Role Phone None, Provider Primary Care Provider Unavaila ble Reason for Visit * Reason Comments Laceration Encounter Details Date Type Department Care Team (Late st Contact Info) Description 06/30/2020 2:23 AM IRRIGATING PUMP OPERATOR - 06/30/2020 3:19 AM IRRIGATING PUMP OPERATOR Emergency [facility] [address] [facility] [place] [address] Felix Ramirez MD [address] [place] [id number] Laceration Discharge Disposition: Home or Self Care (Routine [...] on file Legal Sex Female 5:53 PM IRRIGATING PUMP OPERATOR Gender Identity Not on file Sexual Orientation Not on file COVID-19 Exposure Response Date Recorded In the last month, have you been in contact with someone who was confirmed or suspected to have Coronavirus / COVID-19? No / Unsure 06/30/2020 2:20 AM IRRIGATING PUMP OPERATOR documented as of this encounter Last Filed Vital Signs Vital Sign Reading Time Taken Comments Blood Pressure 127/83 06/30/2020 1:57 AM IRRIGATING PUMP OPERATOR Pulse 119 06/30/2020 1:57 AM IRRIGATING PUMP OPERATOR Temperature 36.9 ??C (98.4 ??F) 06/30/2020 1:57 AM CS T Respiratory Rate 16 06/30/2020 1:57 AM IRRIGATING PUMP OPERATOR Oxygen Saturation 99% 06/30/2020 1:57 AM IRRIGATING PUMP OPERATOR Inhaled Oxygen Concentration - - Weight 65.8 kg (145 lb) 06/30/2020 1:57 AM IRRIGATING PUMP OPERATOR Height 154.9 cm (5' 1 ) 06/30/2020 1:57 AM IRRIGATING PUMP OPERATOR Body Mass Index 27.4 06/30/2020 1:57 AM IRRIGATING PUMP OPERATOR documented in this encounter Discharge Instructions * Attachments The following attachments cannot be sent through Care Everywhere. * Laceration Repair With Stitches Discharge Instructions (Egyptian) documented in this encounter Medications at Time of Discharge vitamin, low iron, 27-0.8 MG tablet Take 1 tablet by mouth daily. sertraline 100 MG tablet Take 100 mg by mouth daily. cephALEXin (KEFLEX) 500 MG capsule Take 1 capsule (500 mg total) by mouth 4 (four) times daily for 7 days. 28 capsule 06/30/2020 07/07/2020 documented as of this encounter ED Notes * Ana Hawkins RN - 06/30/2020 2:19 AM CST Pt tripped and feel into a mirror. Laceration to right lateral hand. Happened about an hour ago. GATING PUMP OPERATOR * Felix Ramirez MD - 06/30/2020 1:45 AM CST eMERGENCY dEPARTMENT eNCOUnter CHIEF COMPLAINT Chief Complaint Patient presents with ??? Laceration HPI HPI Zenia Sparks is a 19-year-old female who presents to the ER with a complaint of falling into amirror lacerating her right hand in 2 places. Patient states that she is left-hand dominant and denies any foreign body sensation in the wounds. She states the injury happened about an hour ago. No loss of function or sensation. No other injuries or complaints. ALLERGIES No Known Allergies CURRENT MEDICATIONS Current Outpatient Medications Medication Sig ??? cephALEXin (KEFLEX) 500 MG capsule Take 1 capsule (500 mg total) by mouth 4 (four) times daily for 7 days. ??? vitamin, low iron, 27-0.8 MG tablet Take 1 tablet by mouth daily. ??? sertraline 100 MG tablet Take 100 mg by mouth daily. PAST MEDICAL HISTORY Past Medical History: Diagnosis Date ??? Anxiety ??? Depression SURGICAL HISTORY No past surgical history on file. SOCIAL HISTORY Social History Socioeconomic History ??? Marital status: Single Spouse name: Not on file ??? Number of children: Not on file ??? Years of education: Not on file ??? Highest education level: Not on file Occupational History ??? Not on file Social Needs ??? Financial resource strain: Not on file ??? Food insecurity Worry: Not on file Inability: Not on file ??? Transportation needs Medical: Not on file Non-medical: Not on file Tobacco Use ??? Smoking status: Current Every Day Smoker Packs/day: 0.50 Years: 5.00 Pack years: 2.50 Types: Cigarettes ??? Smokeless tobacco: Never Used Substance and Sexual Activity ??? Alcohol use: No Frequency: Never ??? Drug use: No ??? Sexual activity: Not on file Lifestyle ??? Physical activity Days per week: Not on file Minutes per session: Not on file ??? Stress: Not on file Relationships ??? Social connections Talks on phone: Not on file Gets together: Not on file Attends pres[employer]beterian service: Not on file Active member of club or organization: Not on file Attends meetings of clubs or organizations: Not on file Relationship status: Not on file ??? Intimate partner violence Fear of current or ex partner: Not on file Emotionally abused: Not on file Physically abused: Not on file Forced sexual activity: Not on file Other Topics Concern ??? Not on file Social History Narrative ??? Not on file FAMILY HISTORY Family History Family history unknown: Yes REVIEW OF SYSTEMS Review of Systems All other ROS negative unless noted above in HPI. PHYSICAL EXAM Physical Exam Filed Vitals: 06/30/20 0157 BP: 127/83 Pulse: 119 Resp: 16 Temp: 98.4 ??F (36.9 ??C) TempSrc: Temporal SpO2: 99% Weight: 65.8 kg (145 lb) Height: 5' 1 (1.549 m) The patient is a well developed and well nourished adult female in mild distress, alert and oriented. HEENT: PERRL, EOMI Throat without lesions, mucous membranes moist NECK: Supple without adenopathy or rigidity CHEST: Respirations are easy and unlabored EXT: No clubbing, cyanosis, edema, there is a 2 cm curvilinear laceration to the dorsal webspace between the thumb and right index finger not deep to any tendinous structures no foreign body in the wound. There is a 5 cm gaping laceration to the ulnar aspect of the right hand over the distal metacarpal extending distally to the ulnar aspect of the right fifth finger. No tendon exposure no foreignbody in the wound. All 5 fingers have full range of motion complete flexion and extension against resistance and distal neurovascular exam is intact NEURO: CN II-XII intact, no focal weakness SKIN: No rash or significant lesions EKG RADIOLOGY No orders to display LABS No results found for this visit on 06/30/20. ED MEDICATIONS Medications cephALEXin (KEFLEX) capsule 500 mg (500 mg Oral Given 06/30/20 0305) tvebzfuc-jsrxzeuibi-mcjoyqqeu (NEOSPORIN) ointment ( Topical Given 06/30/20 0305) PROCEDURES Procedures Wounds were cleansed with Betadine and then anesthetized 1% lidocaine with epinephrine. 4 sutures were placed in the smaller laceration and 8 sutures in the larger laceration the patient tolerated the procedure well. Patient is adamant that there is no foreign body in the wound nor did I feel any so we are will not perform an x-ray. CONSULTS: ED COURSE & MEDICAL DECISION MAKING MDM Because of the delay in care and the size lacerations antibiotics have been initiated and a dressing is applied. FINAL IMPRESSION SNOMED CT(R) 1. Laceration of right hand LACERATION OF RIGHT HAND Recheck with your primary care provider in 7 to 10 days for suture removal Discharge Medication List as of 06/30/2020 3:13 AM START taking these medications Details cephALEXin (KEFLEX) 500 MG capsule Take 1 capsule (500 mg total) by mouth 4 (four) times daily for 7 days., Starting Franca 06/30/2020, Until Franca 07/07/2020, Eprescribe Felix Ramirez MD 06/30/20 0323 GATING PUMP OPERATOR documented in this encounter Plan of Treatment Not on file documented as of this encounter Visit Diagnoses Diagnosis Laceration of right hand- Primary Open wound of hand except finger(s) alone, without mention of complication documented in this encounter Administered Medications Inactive Administered Medications - up to 3 most recent administrations Medication Order MAR Action Action Date Dose Rate Site cephALEXin (KEFLEX) capsule 500 mg 500 mg, Oral, Once, 1 dose, On Franca 06/30/20 at 0300 Given 06/30/2020 3:05 AM IRRIGATING PUMP OPERATOR 500 mg merzjour-xpdhlxnmkm-beonwhtye (NEOSPORIN) ointment Topical, Once, 1 dose, On Franca 06/30/20 at 0300 Given 06/30/2020 3:05 AM IRRIGATING PUMP OPERATOR documented in this encounter Active and Recently Administered Medications Times are shown in IRRIGATING PUMP OPERATOR. Scheduled Medication Order 06/28/2020 06/29/2020 06/30/2020 cephALEXin (KEFLEX) capsule 500 mg (COMPLETED) 500 mg, Oral, Once, 1 dose, On Franca 06/30/20 at 0300 0305 (Given - Provid er: Ana Hawkins RN) qqyvwycs-txhwzunqkn-fsouxvqnk (NEOSPORIN) ointment (COMPLETED) Topical, Once, 1 dose, On Franca 06/30/20 at 0300 0305 (Given - Provid er: Ana Hawkins RN) documented in this encounter Care Teams Online Tutor Relationship Specialty Start Date End Date None, Provider, PCP - General 05/23/19 documented as of this encounter
--- OUTSIDE RECORDS SUMMARY | 2024-08-16 21:33 | XMS_ITS | Clinical Summary ---
Author Organization [facility] Address [address] [place] [address]. [place] [address] [place] [address] Care Team Providers Care Product Management Internship Name Role Phone None, Provider MD Primary Care Provider Unavaila ble Allergies No known active allergies Medications sertraline 100 MG tablet Take 100 mg by mouth daily. Active vitamin, low iron, 27-0.8 MG tablet Take 1 tablet by mouth daily. Active Immunizations Name Administration Dates Next Due Rabies (Rabavert) 01/25/2020 Td (TDVAX) 01/25/2020 Social History Tobacco Use Types Packs/Day Years [...] on file Legal Sex Female 5:53 PM LAB REP Gender Identity Not on file Sexual Orientation Not on file Last Filed Vital Signs Vital Sign Reading Time Taken Comments Blood Pressure 127/83 06/30/2020 1:57 AM LAB REP Pulse 119 06/30/2020 1:57 AM LAB REP Temperature 36.9 ??C (98.4 ??F) 06/30/2020 1:57 AM CS T Respiratory Rate 16 06/30/2020 1:57 AM LAB REP Oxygen Saturation 99% 06/30/2020 1:57 AM LAB REP Inhaled Oxygen Concentration - - Weight 65.8 kg (145 lb) 06/30/2020 1:57 AM LAB REP Height 154.9 cm (5' 1 ) 06/30/2020 1:57 AM LAB REP Body Mass Index 27.4 06/30/2020 1:57 AM LAB REP Plan of Treatment Health Maintenance Due Date Last Done Comments Cervical Cancer Screening Pap Smear (Age 21 to 29) Every 3 Years 1999 Cervical Cancer Screening 1999 Annual Physical 2002 Pneumococcal Vaccine: Pediatrics (0 to 5 Years) and At-Risk Patients (6 to 64 Years) (1 of 2 - PCV) 2005 Hepatitis C 2017 Hepatitis B Vaccines (1 of 3 - 19+ 3-dose series) 2018 DTaP, Tdap and Td Vaccines (6 - Tdap) 01/26/2020 01/25/2020, 11/05/2003, 12/31/2000, Additional history exists COVID-19 Vaccine ( season) 2024 Influenza Adult (#1) 2024 06/25/2018, 06/27/20 09 RSV Immunization or 60+ Years (1 - 1-dose 75+ series) 2074 HPV Vaccines Completed 02/18/2013, 11/12, 06/16/2012 Meningococcal Vaccine Completed 05/30/2016, 011 RSV Immunizations Under 20 Months Aged Out No longer eligible based on patient's age to complete this topic Insurance [employer] Care Teams Product Management Internship Relationship Specialty Start Date End Date None, Provider, PCP - General 05/23/19
--- OUTSIDE RECORDS SUMMARY | 2024-08-16 21:33 | XMS_ITS | Encounter Summary ---
Author Organization [facility] Address [address] [place] [address]. [place] [address] [place] [address] Care Team Providers Care Financial Institution Branch Manager Name Role Phone None, Provider Primary Care Provider Unavaila ble Encounter Details Date Type Department Care Team (Late st Contact Info) Description 01/17/2019 Abstract [facility] [address] [place] [address] , Generic Conversion, Social History Tobacco Use Types Packs/Day Years Used Date Smoking Tobacco: Never Assessed Comments Unknown Sex and Gender Information Value Date Recorded Sex Assigned at Not on file Legal Sex Female 5:53 PM HEALTH SCIENCE INSTRUCTOR Gender Identity Not on file Sexual Orientation Not on file documented as of this encounter Plan of Treatment Not on file documented as of this encounter Visit Diagnoses Not on filedocumented in this encounter Care Teams Financial Institution Branch Manager Relationship Specialty Start Date End Date None, Provider, PCP - General 05/23/19 documented as of this encounter
--- OUTSIDE RECORDS SUMMARY | 2024-08-16 21:34 | XMS_ITS | Encounter Summary ---
Author Organization [facility] Address [address] [place] [address]. [place], [place] [address] [place] [address] Care Team Providers Care Talent Manager Name Role Phone Unavailable Primary Care Provider Unavailabl e Encounter Details Date Type Department Care Team (Late st Contact Info) Description 1999 Abstract [facility] [address] [place] [address] , Generic Conversion, Social History Tobacco Use Types Packs/Day Years Used Date Smoking Tobacco: Never Assessed Comments Unknown Sex and Gender Information Value Date Recorded Sex Assigned at Not on file Legal Sex Female 5:53 PM NOTE TAKER Gender Identity Not on file Sexual Orientation Not on file documented as of this encounter Plan of Treatment Not on file documented as of this encounter Visit Diagnoses Not on filedocumented in this encounter
--- OUTSIDE RECORDS SUMMARY | 2024-08-16 21:34 | XMS_ITS | Encounter Summary ---
Author Organization [facility] Address [address] [place] [address]. 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
--- OUTSIDE RECORDS SUMMARY | 2024-08-16 21:34 | XMS_ITS | Encounter Summary ---
Author Organization [facility] Address [address] [place] [address]. 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
--- OUTSIDE RECORDS SUMMARY | 2024-08-16 21:34 | XMS_ITS | Encounter Summary ---
Author Organization [facility] Address [facility] [place] [address] [place] [address] Care Team Providers Care Therapy Aide Name Role Phone Unavailable Primary Care Provider Unavailabl e Encounter Details Date Type Department Care Team (Late st Contact Info) Description 11/07/2017 Abstract [place] [facility] [address] [facility] [place] [address] April Pickett MD [address] [place] [address], [address] [place] [address] Social History Tobacco Use Types Packs/Day Years Used Date Smoking Tobacco: Never Assessed Comments Unknown Sex and Gender Information Value Date Recorded Sex Assigned at Not on file 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 Gender Identity Not on file Sexual Orientation Not on file documented as of this encounter Plan of Treatment Not on file documented as of this encounter Procedures Procedure Name Priority Date/Time Associated Diagnosis Comments STREP A, DNA Routine 11/07/2017 8:22 PM CDT RAPID STREP A STAT 11/07/2017 8:22 PM CDT documented in this encounter Results * STREP A, DNA (11/07/2017 8:22 PM CDT) SPEC DESCRIPTION THROAT 11/07/2017 8:39 PM CDT [facility] SPECIAL REQUESTS NO SPECIAL REQUEST 11/07/2017 8:39 PM CDT [facility] RESULT NEGATIVE 11/07/2017 9:47 PM CDT [facility] THROAT SWAB / Unknown 11/07/2017 8:22 PM CDT 11/07/2017 8:39 PM CDT us Generic Conversion Md [facility] MICROBIOLOGY - GENERAL ORDERABLES Final Result Performing Organization Address City/[facility]/ZIP Co de Phone Number [facility] [address] [place] [address], * RAPID STREP A (11/07/2017 8:22 PM CDT) SPEC DESCRIPTION THROAT 11/07/2017 8:25 PM CDT [facility] SPECIAL REQUESTS NO SPECIAL REQUEST 11/07/2017 8:25 PM CDT [facility] RAPID STREP TEST NEGATIVE 11/07/2017 8:38 PM CDT [facility] THROAT SWAB / Unknown 11/07/2017 8:22 PM CDT 11/07/2017 8:28 PM CDT us Generic Conversion Md [facility] MICROBIOLOGY - GENERAL ORDERABLES Final Result Performing Organization Address City/[facility]/ZIP Co de Phone Number [facility] [address] [place] [address], [place] [phone] documented in this encounter Visit Diagnoses Diagnosis Acute tonsillitis documented in this encounter
--- OUTSIDE RECORDS SUMMARY | 2024-08-16 21:34 | XMS_ITS | Encounter Summary ---
Author Organization [facility] Address [facility] 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 Gender Identity Not on file Sexual Orientation Not on file documented as of this encounter Plan of Treatment Not on file documented as of this encounter Procedures Procedure Name Priority Date/Time Associated Diagnosis Comments URINALYSIS WI REFLEX TO CULTURE STAT 03/23/2018 8:35 PM CDT URINE BACTERIA CULTURE Routine 8 8:35 PM CDT TYPE & SCREEN STAT 03/23/2018 8:21 PM CDT COMPREHENSIVE METABOLIC PANEL STAT 03/23/2018 8:21 PM CDT HCG QUANT (SERUM)-CHORIONIC GONADOTROPIN STAT 03/23/2018 8:21 PM CDT CBC W/DIFF AUTOMATED STAT 03/23/2018 8:21 PM CDT documented in this encounter Results * CULTURE URINE (03/23/2018 8:35 PM CDT) SPEC DESCRIPTION URINE CLEAN CATCH 03/23/2018 8:54 PM CDT [facility] SPECIAL REQUESTS NO SPECIAL REQUEST 03/23/2018 8:54 PM CDT [facility] CULTURE RESULT FEW CONTAMINANTS 03/12 1:20 AM CDT [facility] URINE SPECIMEN OBTAINED BY CLEAN CATCH PROCEDURE / Unknown 03/23/2018 8:35 PM CDT 03/23/2018 8:54 PM CDT us Generic Conversion Md [facility]KS MICROBIOLOGY - GENERAL ORDERABLES Final Result [facility] [address] [place] [address], [place] [phone] [id number] [facility] [address] [place] [address], [place] [phone] * (ABNORMAL) URINALYSIS WI REFLEX TO CULTURE (03/23/2018 8:35 PM CDT) COLOR (U) YELLOW 03/23/2018 8:54 PM CDT [facility] TRANSPARENCY CLEAR 03/23/2018 8:54 PM CDT [facility] SPECIFIC GRAVITY (U) 1.020 1.000 - 1.025 03/23/2018 8:54 PM CDT [facility] U PH 8.0 5.0 - 8.0 03/23/2018 8:54 PM CDT [facility] LEUKOCYTES (U) NEGATIVE NEGATIVE 03/23/2018 8:54 PM CDT [facility] NITRITES NEGATIVE NEGATIVE 03/23/2018 8:54 PM CDT [facility] PROTEIN (U) NEGATIVE NEGATIVE 03/23/2018 8:54 PM CDT [facility] URINE GLUCOSE NEGATIVE NEGATIVE 03/23/2018 8:54 PM CDT [facility] KETONES MG/DL (U) TRACE(A) NEGATIVE 03/23/2018 8:54 PM CDT [facility] UROBILINOGEN 1.0(H) <1.0 EU/DL 03/23/2018 8:54 PM CDT [facility] BILIRUBIN (U) NEGATIVE NEGATIVE 03/23/2018 8:54 PM CDT [facility] BLOOD (U) NEGATIVE NEGATIVE 03/23/2018 8:54 PM CDT [facility] WBC/HPF 0-5 0 - 5 /HPF 03/23/2018 8:54 PM CDT [facility] RBC/HPF 0-5 0 - 5 /HPF 03/23/2018 8:54 PM CDT [facility] EPI/HPF MODERATE /LPF 03/23/2018 8:54 PM CDT [facility] BACTERIA (U) 4+ /HPF 03/23/2018 8:54 PM CDT [facility] MUCUS PRESENT 03/23/2018 8:54 PM CDT [facility] CULTURE & SENSITIVITY INDICATED? SPECIMEN SETUP FOR CULTURE 03/23/2018 8:54 PM CDT [facility] OTHER (type in comments) 03/23/2018 8:35 PM CDT 03/23/2018 8:40 PM CDT Comment:URINE SPECIMEN~URINE SPECIMEN us Generic Conversion Md [facility]KS URINE ORDERABLES Final Result [facility] [place] [address], * TYPE & SCREEN (03/23/2018 8:21 PM CDT) ABO/RH AB POSITIVE 03/23/2018 9:16 PM CDT [facility] ANTIBODY SCREEN NEGATIVE 03/23/2018 9:16 PM CDT [facility] SAMPLE EXPIRATION 03/26/2018 03/23/2018 9:16 PM CDT [facility] 03/23/2018 8:21 PM CDT 03/23/2018 8:30 PM CDT us Generic Conversion Md HANKS BLOOD BANK TEST ORDERAB LES Final Result [facility] [address] [place] [address], * (ABNORMAL) HCG QUANT (SERUM)-CHORIONIC GONADOTROPIN (03/23/2018 8:21 PM CDT) HCG QUANTITATIVE 469(H) 0.0 - 6.0 MIU/ML 03/23/2018 9:07 PM CDT [facility] Comment: WEEKS OF ? REFERENCE RANGES NON- FEMALE ?0-6 ?0.2 - 1 ? 5 - 50 ? 1 - 2 ? 50 - 500 ? 2 - 3 ?100 - 5000 ? 3 - 4 ? 500 - 10,000 ? 4 - 5 ?1000 - 50,000 ? 5 - 6 ? 10,000 - 100,000 ? 6 - 8 ? 15,000 - 200,000 ? 2 - 3 MONTHS ?10,000 - 100,000LOW LEVEL HCG VALUES >25 MIU/ML MAY BE INDICATIVE OF EARLY . WHEN BORDERLINE RESULTS ARE ENCOUNTERED, REPEAT TESTING AT 48 HOURS MAY BE INDICATED. SERUM OR PLASMA SPECIMEN / Unknown 03/23/2018 8:21 PM CDT 03/23/2018 8:30 PM CDT us Generic Conversion Md [facility] Final R esult [facility] [address] [place] [address], * (ABNORMAL) COMPREHENSIVE METABOLIC PANEL (03/23/2018 8:21 PM CDT) SODIUM S/P/B 137 136 - 145 MMOL/L 03/23/2018 9:07 PM CDT [facility] POTASSIUM S/P/B 3.8 3.5 - 5.1 MMOL/L 03/23/2018 9:07 PM T [facility] CHLORIDE S/P/B 104 98 - 107 MMOL/L 03/23/2018 9:07 PM T [facility] CO2 24.2 21.0 - 32.0 MMOL/L 03/23/2018 9:07 PM T [facility] GLUCOSE 97 70 - 140 MG/DL 03/23/2018 9:07 PM T [facility] BUN 7 6 - 24 MG/DL 03/23/2018 9:07 PM T [facility] CREATININE S/P/B 0.64 0.55 - 1.02 MG/DL 03/23/2018 9:07 PM T [facility] CALCIUM S/P/B 9.1 9.1 - 10.3 MG/DL 03/23/2018 9:07 PM T [facility] BILIRUBIN TOTAL S/P/B 0.2 0.2 - 1.0 MG/DL 03/23/2018 9:07 PM T [facility] ALKALINE PHOSPHATASE S/P/B 64 52 - 144 U/L 03/23/2018 9:07 PM T [facility] AST 14(L) 15 - 37 U/L 03/23/2018 9:07 PM T [facility] ALT 16 14 - 59 U/L 03/23/2018 9:07 PM T [facility] TOTAL PROTEIN S/P/B 7.6 6.4 - 8.2 G/DL 03/23/2018 9:07 PM T [facility] ALBUMIN S/P/B 3.9 3.4 - 5.0 G/DL 03/23/2018 9:07 PM T [facility] ANION GAP 8.8 MMOL/L 03/23/2018 9:07 PM T [facility] Comment:REFERENCE RANGE NOT ESTABLISHED OSMOLALITY (CALC) 282 MOSM/KG 018 9:07 PM CDT [facility] Comment:REFERENCE RANGE NOT ESTABLISHED EGFR NON-AFR. AMER. >90 >89 ML/MIN/1.7 3 M2 03/23/2018 9:07 PM CDT [facility] Comment: THE ESTIMATED GFR IS CALCULATED USING THE 2009 CKD-EPI EQUATION. THE FOLLOWING CATEGORIES FOR GRADING RENAL FUNCTION ARE RECOMMENDED BY THE INTERNATIONAL SOCIETY OF NEPHROLOGY (KDIGO 2012 CLINICAL PRACTICE GUIDELINE).G1,NORMAL OR HIGH: >89 ml/min/1.73 m2G2,MILDLY DECREASED: 60-89 ml/min/1.73 m2G3A,MILDLY TO MODERATELY DECREASED: 45-59 ml/min/1.73 m2G3B,MODERATELY TO SEVERELY DECREASED: 30-44 ml/min/1.73 m2G4,SEVERELY DECREASED: 15-29 ml/min/1.73 m2G5,KIDNEY FAILURE: <15 ml/min/1.73 m2 EGFR AFR. AMER. >90 >89 ML/MIN/1.7 3 M2 03/23/2018 9:07 PM CDT [facility] Comment: THE ESTIMATED GFR IS CALCULATED USING THE 2009 CKD-EPI EQUATION. THE FOLLOWING CATEGORIES FOR GRADING RENAL FUNCTION ARE RECOMMENDED BY THE INTERNATIONAL SOCIETY OF NEPHROLOGY (KDIGO 2012 CLINICAL PRACTICE GUIDELINE).G1,NORMAL OR HIGH: >89 ml/min/1.73 m2G2,MILDLY DECREASED: 60-89 ml/min/1.73 m2G3A,MILDLY TO MODERATELY DECREASED: 45-59 ml/min/1.73 m2G3B,MODERATELY TO SEVERELY DECREASED: 30-44 ml/min/1.73 m2G4,SEVERELY DECREASED: 15-29 ml/min/1.73 m2G5,KIDNEY FAILURE: <15 ml/min/1.73 m2 PLASMA SPECIMEN / Unknown 03/23/2018 8:21 PM CDT 03/23/2018 8:30 PM CDT us Generic Conversion Md [facility] Final R esult [facility] [address] [place] [address], * (ABNORMAL) CBC W/DIFF AUTOMATED (03/23/2018 8:21 PM CDT) WBC 9.2 4.5 - 10.8 x10'3/uL 03/23/2018 8:33 PM CDT [facility] RBC 4.26 4.10 - 5.40 x10'6/uL 03/23/2018 8:33 PM CDT [facility] HGB 12.4 12.0 - 16.0 G/DL 03/23/2018 8:33 PM CDT [facility] HCT 36.5 36.0 - 47.0 % 03/23/2018 8:33 PM CDT [facility] MCV 85.7 78.0 - 100.0 FL 03/23/2018 8:33 PM CDT [facility] MCH 29.1 27.0 - 31.0 PG 03/23/2018 8:33 PM CDT [facility] MCHC 34.0 33.0 - 36.0 G/DL 03/23/2018 8:33 PM CDT [facility] RDW 12.5 11.5 - 14.5 % 03/23/2018 8:33 PM CDT [facility] PLT 239 150 - 350 x10'3/uL 03/23/2018 8:33 PM CDT [facility] MPV 10.9(H) 7.4 - 10.4 FL 03/23/2018 8:33 PM CDT [facility] SEG NEUTROPHILS 53.1 % 8 8:33 PM CDT [facility] LYMPHOCYTES 36.5 % 03/23/2018 8:33 PM CDT [facility] MONOCYTES 6.1 % 03/23/2018 8:33 PM CDT [facility] EOSINOPHILS 3.6 % 03/23/2018 8:33 PM CDT [facility] BASOPHILS 0.5 % 03/23/2018 8:33 PM CDT [facility] IMMATURE GRANS % 0.2 % 03/23/20 18 8:33 PM CDT [facility] NRBC 0.0 % 03/23/2018 8:33 PM CDT [facility] ABS. NEUTROPHILS 4.86 1.60 - 8.30 x10'3/uL 03/23/2018 8:33 PM CDT [facility] ABS. LYMPHOCYTES 3.34 0.80 - 4.70 x10'3/uL 03/23/2018 8:33 PM CDT [facility] ABS. MONOCYTES 0.56 0.00 - 1.50 x10'3/uL 03/23/2018 8:33 PM CDT [facility] ABS. EOSINOPHILS 0.33 0.00 - 0.40 x10'3/uL 03/23/2018 8:33 PM CDT [facility] ABS. BASOPHILS 0.05 0.00 - 0.20 x10'3/uL 03/23/2018 8:33 PM CDT [facility] ABS. IMMATURE GRANULOCYTES 0.02 0.00 - 0.03 x10'3/uL 03/23/2018 8:33 PM CDT [facility] ABS. NUCLEATED RBC'S 0.00 0.00 x10'3/uL 03/23/2018 8:33 PM CDT [facility] OTHER (type in comments) 03/23/2018 8:21 PM CDT 03/23/2018 8:30 PM CDT Comment:WHOLE BLOOD SAMPLE us Generic Conversion Md [facility] Final R esult [facility] [address] [place] [address], documented in this encounter Visit Diagnoses Diagnosis Antepartum hemorrhage (HHS/HCC) Unspecified antepartum hemorrhage, unspecified as to episode of care documented in this encounter
--- OUTSIDE RECORDS SUMMARY | 2024-08-16 21:37 | XMS_ITS | Encounter Summary ---
Author Organization [facility] Address [address] [place] [address] Care Team Providers Care Clinical Trials Assistant Name Role Phone Unknown, Notinfile Primary Care Provider Unavail able Encounter Details Date Type Department Care Team (Late st Contact Info) Description 02/04/2024 Telephone [facility] [address] [place] [address] Audra Dalton MD [address] [facility] 3 [facility] [address] [place] [address] Social History Tobacco Use Types Packs/Day Years Used Date Smoking Tobacco: Every Day Vaping Smokeless Tobacco: Never Alcohol Use Standard Drinks/Week Comments Never 0 (1 standard drink = 0.6 oz pur e alcohol) AUDIT-C Answer Date Recorded Q1: How often do you have a drink containing alc ohol? Monthly or less 01/27/2024 Q2: How many drinks containi ng alcohol do you have on a typical day when you are drinking? 1 or 2 01/27/2024 Q3: How often do you have si x or more drinks on one occasion? Never 01/27/2024 Hunger Vital Sign Answer Date Recorded Within the past 12 months, y ou worried that your food would run out before you got the money to buy more. Never true 12/03/19 24 Within the past 12 months, t he food you bought just didn't last and you didn't have money to get more. Never true 12/03/2023 Personal Safety Answer Date Recorded Have you ever been in or are you currently in a harmful physical or emotional relationship or is someone making you feel afraid or unsafe? 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 No answer, left VM. Post-op visit scheduled for 02/10/24. Audra Dalton MD Resident Physician, PGY-2 Department of Obstetrics & Gynecology documented in this encounter Plan of Treatment Not on file documented as of this encounter Visit Diagnoses Not on filedocumented in this encounter Care Teams Clinical Trials Assistant Relationship Specialty Start Date End Date Unknown, Notinfile PCP - General 01/17/24 documented as of this encounter
--- OUTSIDE RECORDS SUMMARY | 2024-08-16 21:37 | XMS_ITS | Clinical Summary ---
Author Organization [facility] Address [address] [place] [address] Phone Care Team Providers Care Manager Rental Name Role Phone Tyler Higgins MD Primary Care Provider [phone] Allergies No known active allergies Medications No known medications Social History Tobacco Use Types Packs/Day Years Used Date Smoking Tobacco: Every Day Cigarettes Smokeless Tobacco: Never Alcohol Use Standard Drinks/Week Comments No 0 (1 standard drink = 0.6 oz pur e alcohol) Comments Unknown Sex and Gender Information Value Date Recorded Sex Assigned at Not on file Legal Sex Female 10:38 PM CDT Gender Identity Not on file Sexual Orientation Not on file Last Filed Vital Signs Vital Sign Reading Time Taken Comments Blood Pressure 118/77 02/10/2018 7:00 PM CDT Pulse 90 02/10/2018 2:48 PM CDT Temperature 37.1 ??C (98.8 ??F) 02/10/2018 2:48 PM CD T Respiratory Rate 16 02/10/2018 2:48 PM CDT Oxygen Saturation 98% 02/10/2018 2:48 PM CDT Inhaled Oxygen Concentration - - Weight 56.7 kg (125 lb) 02/10/2018 2:48 PM CDT Height 154.9 cm (5' 1 ) 02/10/2018 2:48 PM CDT Body Mass Index 23.62 02/10/2018 2:48 PM CDT Plan of Treatment Health Maintenance Due Date Last Done Comments Hepatitis C Virus (HCV) Screening 1999 TdaP Immunization 1999 Human Papillomavirus (HPV) Immunization (1 - 3-dose series) 2014 Hepatitis B Immunization (1 of 3 - 19+ 3-dose series) 2018 Pap Smear 2020 Influenza Immunization (#1) 2024 SARS-COV-2 Immunization (1 - 2024-25 season) 2024 Respiratory Syncytial Virus (RSV) Immunization (Adult) (1 - 1-dose 75+ series) 2074 Meningococcal Immunization (ACWY) Aged Out No longer eligible based on patient's age to complete this topic Pneumococcal Immunization Combined Aged Out No longer eligible based on patient's age to complete this topic Rotavirus Immunization Aged Out No lo nger eligible based on patient's age to complete this topic Insurance MEDICAID [employer] Care Teams Manager Rental Relationship Specialty Start Date End Date Tyler Higgins MD [address] [place] [address] PCP - General Internal Medicine 02/10/18
--- OUTSIDE RECORDS SUMMARY | 2024-08-16 21:37 | XMS_ITS | Referral Summary ---
Author Organization [facility] [address] Address [address] [place] [address] Phone Care Team Providers Care Senior Data Quality Analyst Name Role Phone Unknown, Notinfile Primary Care Provider Unavail able Allergies No known active allergies Medications ARIPiprazole (ABILIFY) 10 mg tablet Take 1 tablet (10 mg total) by mouth nightly at bedtime 4 Active calcium carbonate (TUMS) 500 mg (200 mg elemental calcium) chewable tablet Take 1 tablet/chew tab (500 mg total) by mouth as needed for indigestion or heartburn Active ibuprofen 200 mg tab/cap Take 3 tablet/capsule (600 mg total) by mouth every 6 (six) hours as needed for pain 30 tablet 4 Active acetaminophen (TYLENOL) 500 mg tablet Take 1 tablet (500 mg total) by mouth every 6 (six) hours as needed for pain 30 tablet 4 Active polyethylene glycol (MIRALAX) 17 gram/dose bulk powder Take 17 g by mouth daily 100 g 4 Active oxyCODONE (ROXICODONE) 5 mg immediate release tabletIndicatio ns:Pain Take 1 tablet (5 mg total) by mouth every 4 (four) hours as needed for pain 10 tablet 4 Active Active Problems Problem Noted Date Diagnosed Date Encounter for sterilization 11/01/2023 Unwanted fertility 11/01/2023 Immunizations Name Administration Dates Next Due Influenza, Quadrivalent, Spl it, Preservative Free, Intramuscular 06/25/2018 Social History Tobacco Use Types Packs/Day Years Used Date Smoking Tobacco: Every Day Vaping Smokeless Tobacco: Never Tobacco Cessation:Ready to Q uit: Not Asked; Counseling Given: Not Answered Alcohol Use Standard Drinks/Week Comments Never 0 [...] on file 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 Gender Identity Not on file Sexual Orientation Not on file Last Filed Vital Signs Vital Sign Reading Time Taken Comments Blood Pressure 107/69 01/27/2024 1:30 PM CDT Pulse 71 01/27/2024 1:30 PM CDT Temperature 36.2 ??C (97.2 ??F) 01/27/2024 12:15 PM C DT Respiratory Rate 18 01/27/2024 1:30 PM CDT Oxygen Saturation 98% 01/27/2024 1:30 PM CDT Inhaled Oxygen Concentration - - Weight 77.1 kg (170 lb) 01/15/2024 4:45 PM CDT Height 154.9 cm (5' 1 ) 01/15/2024 4:45 PM CDT Body Mass Index 32.12 01/15/2024 4:45 PM CDT Plan of Treatment Not on file Insurance [facility] Advance Directives For more information, please contact: [phone] * Full Code (Latest Code Status on File) Date Activated Date Inactivated Comments 11/11/2020 8:52 AM 11/12/2020 7:35 PM * Full Code Date Activated Date Inactivated Comments 11/20/2018 6:44 PM 11/22/2018 7:14 PM * Full Code Date Activated Date Inactivated Comments 11/19/2018 5:50 PM 11/20/2018 6:44 PM Full CPR in case of cardiopulmonary arrest Care Teams Senior Data Quality Analyst Relationship Specialty Start Date End Date Unknown, Notinfile PCP - General 01/17/24
--- OUTSIDE RECORDS SUMMARY | 2024-08-16 21:37 | XMS_ITS | Encounter Summary ---
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 No answer, LVM with clinic phone number. Audar Dalton MD Resident Physician, PGY-2 Department of Obstetrics & Gynecology documented in this encounter Plan of Treatment Not on file documented as of this encounter Visit Diagnoses Not on filedocumented in this encounter Care Teams Jewelry Racker Relationship Specialty Start Date End Date Unknown, Notinfile PCP - General 01/17/24 documented as of this encounter
--- OUTSIDE RECORDS SUMMARY | 2024-08-16 21:37 | XMS_ITS | Encounter Summary ---
Author Organization [facility] Healthcare Address [address] [place] [address] Care Team Providers Care Woodworking Machine Feeder Name Role Phone Unknown, Notinfile Primary Care Provider Unavail able Encounter Details Date Type Department Care Team (Late st Contact Info) Description 02/19/[address] 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 LVM with clinic phone number. Audra Dalton MD Resident Physician, PGY-2 Department of Obstetrics & Gynecology documented in this encounter Plan of Treatment Not on file documented as of this encounter Visit Diagnoses Not on filedocumented in this encounter Care Teams Woodworking Machine Feeder Relationship Specialty Start Date End Date Unknown, Notinfile PCP - General 01/17/24 documented as of this encounter
--- OUTSIDE RECORDS SUMMARY | 2024-08-16 21:37 | XMS_ITS | Clinical Summary ---
Author Organization [facility] [address] Address [address] [place] [address] Phone Care Team Providers Care Recovery Rn Name Role Phone Unknown, Notinfile Primary Care [...] Quadrivalent, Spl it, Preservative Free, Intramuscular 06/25/2018 Surgical History Surgery Date Site/Laterality Comments INCISION AND DRAINAGE 08/12/2008 - 08/11/2009 Medical History Medical History Date Comments Depression Hypertension 11/2018 gestational HTN first RLS (restless legs syndrome) Family History Medical History Relation Name Comments Aneurysm Father Thyroid disease Mother Relation Name Status Comments Father Mother Alive Social History Tobacco Use Types Packs/Day Years [...] on file Legal Sex Female 6:01 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 it ([facility]) 2020 Term 38w 5d 11h 09m 10h 42m/0h 21m/0h 06m 3.476 kg (7 lb 10.6 oz) M Vag-S pont Epidur al N Livin g 9 9 Steve METCALF Geoffr ey Lowell, MD Complications:None Delivery Location:This Fac[facility] ([facility]) Last Filed Vital Signs Vital Sign Reading [...] 01/15/2024 4:45 PM CDT Plan of Treatment Health Maintenance Due Date Last Done Comments Cervical Cancer Screening 1999 Chlamydia and Gonorrhea (GC/ CT) Screening 1999 Depression Screening 1999 Hepatitis C Screening 1999 Pneumococcal vaccine <65 (1 of 2 - PCV) 2005 Regular Well Visit/Exam 18-64 2017 Influenza Vaccine (#1) 2024 0, 06/25/2018, 06/14/2017, Additional history exists DTaP/Tdap/Td Vaccine (10 - T d or Tdap) 08/30/2030 08/30/2020, 01/25/2020, 10/01/2018, Additional history exists HPV Vaccines Completed 02/18/2013, 04/3 , 06/16/2012 Varicella Vaccines Completed 08/18/2014, 04/21/2014 Insurance [facility] Advance Directives For more information, please contact: [phone] * Full Code (Latest Code Status on File) Date Activated Date Inactivated Comments 11/11/2020 8:52 AM 11/12/2020 7:35 PM * Full Code Date Activated Date Inactivated Comments 11/20/2018 6:44 PM 11/22/2018 7:14 PM * Full Code Date Activated Date Inactivated Comments 11/19/2018 5:50 PM 11/20/2018 6:44 PM Full CPR in case of cardiopulmonary arrest Care Teams Recovery Rn Relationship Specialty Start Date End Date Unknown, Notinfile PCP - General 01/17/24
--- OUTSIDE RECORDS SUMMARY | 2024-08-16 21:37 | XMS_ITS | Encounter Summary ---
Author Organization [facility] Healthcare Address [address] [place] [address] Care Team Providers Care Preform Plate Maker Name Role Phone Unknown, Notinfile Primary Care Provider Unavail able Reason for Visit * Auth/Cert (Routine) Specialty Diagnoses / Procedures Referred By Isaiah leo Referred To Contact Diagnoses Encounter for sterilization Unwanted fertility Encounter for sterilization [Z30.2] Unwanted fertility [Z30.09] Procedures CO LIGATE FALLOPIAN TUBE LAPAROSCOPIC BILATERAL SALPINGECTOMY Referral ID Status Reason Start Date Expiration Date Visits Re quested Visits Authorized [id number] 1 1 Encounter Details Date Type Department Care Team (Late st Contact Info) Description 01/27/2024 10:35 AM CDT - 01/27/2024 12:20 PM CDT Surgery [facility] Operating Room [facility] [address] [place] [id number] Lu Rooney MD [address] [facility] [phone] [place], [place] [id number] LAPAROSCOPIC BILATERAL SALPINGECTOMY Surgery Details Date/Time Status Location OR Service Patient Class Case Cl ass Case Type Trauma Case? 01/27/2024 10:35 AM Posted [facility] CAM OR POD 4 C Obstetrics / Gynecology Outpatient Elective Panel 1 Procedure LRB Anes Op Region Wound Class Comments LAPAROSCOPIC BILATERAL SALPINGECTOMY N/A General Abd omen Class I - Clean Surgeon Surgeon Role Service Panel Princess Wilson MD Resident - Assisting Obstetr ics / Gynecology 1 Lu Rooney MD Primary Obstetrics / G ynecology 1 Case Notes 12/08@1552 Case length - Case message to Lilia CF04/10@1125 Per Lilia via case message, case to be rescheduled. CF04/10@1110 Per Lilia via case message, Please place this case back in the depot. [id number]/[id number]- Changed location per Lilia via case msg.[id number]/[email or web address]@0750- Sent msg to Lilia about case being on pod 4.EF11/05@7048- MISSING [facility] EMAIL SENT. 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 Gender Identity Not on file Sexual Orientation Not on file documented as of this encounter Last Filed Vital Signs Vital Sign Reading Time Taken Comments Blood Pressure 127/87 01/27/2024 12:20 PM CDT Pulse 88 01/27/2024 12:20 PM CDT Temperature 36.2 ??C (97.2 ??F) 01/27/2024 12:15 PM C DT Respiratory Rate 12 01/27/2024 12:20 PM CDT Oxygen Saturation 100% 01/27/2024 12:20 PM CDT Inhaled Oxygen Concentration - - Weight 77.1 kg (170 lb) 01/15/2024 4:45 PM CDT Height 154.9 cm (5' 1 ) 01/15/2024 4:45 PM CDT Body Mass Index 32.12 01/15/2024 4:45 PM CDT documented in this encounter Discharge Instructions * Discharge Instructions* Princess Wilson MD - 01/27/2024 9:18 AM CDT Discharge Instructions Call Your Doctor If: * You have a fever more than 101 degrees. * You have swelling or pain in your legs. * You have a hard time breathing or pain in your chest. * You have nausea lasting more than a few hours. * You vomit more than 1 time. * You do not have a bowel movement for 3 days. * Your pain medicine is not helping your pain. * You have foul smelling drainage from your vagina or incision. * You are bleeding more than you do during your regular period. Diet: * You may eat all the foods you ate before surgery. * Drink at least 8-10 cups of water a day. * Avoid drinking alcohol and caffeine. Activity: * Do NOT drive for 24 hours after your surgery * Do NOT lift objects over 20 pounds for 2 weeks. * It is OK to slowly climb stairs. * Staying active is very important to keep your bowels moving and improving your circulation. * Take short walks every day. Care Instructions: * You may shower, let the water run over your incision. Pat dry with a clean towel. Do NOT rub. * No tub baths or soaking until your doctor says it is OK. * Keep your incision clean and dry between showers. * There are paper strips over your wound. It is OK to shower but do NOT scrub them. The paper strips will fall off in about 5 days. If they do not fall off on their own you may remove them. * It???s normal to have vaginal spotting and discharge up to 6 weeks following surgery. Pain: * You can take ibuprofen (600mg every 6 hours) and tylenol (1000mg every 6 hours) as directed by your doctor * You can take oxycodone every 4 hours as needed for breakthrough pain. Be sure to take stool softeners while using this medication * If you do not use all of your narcotic medication, please be sure to dispose of it responsibly. Either return the leftover pills to a Drug Takeback location near you (https://health.[place].gov/safety/bndd/vddmvubcty-rcjkycxa-lkcq.php), flush the pills down the toilet, or throw the pills away with your household trash separate from the pill bottle. Follow Up: * It is important to keep your scheduled follow up appointment with your MD. * If you cannot keep your scheduled appointment, please call the office. * Attachments The following attachments cannot be sent through Care Everywhere. * [facility] PATHWAY TO EXCELLENT CARE AFTER SURGERY documented in this encounter Medications at Time of Discharge acetaminophen (TYLENOL) 500 mg tablet Take 1 tablet (500 mg total) by mouth every 6 (six) hours as needed for pain 30 tablet 01/27/2024 ARIPiprazole (ABILIFY) 10 mg tablet Take 1 tablet (10 mg total) by mouth nightly at bedtime 12/18/2023 calcium carbonate (TUMS) 500 mg (200 mg elemental calcium) chewable tablet Take 1 tablet/chew tab (500 mg total) by mouth as needed for indigestion or heartburn ibuprofen 200 mg tab/cap Take 3 tablet/capsule (600 mg total) by mouth every 6 (six) hours as needed for pain 30 tablet 01/27/2024 oxyCODONE (ROXICODONE) 5 mg immediate release tabletIndication s:Pain Take 1 tablet (5 mg total) by mouth every 4 (four) hours as needed for pain 10 tablet 01/27/2024 polyethylene glycol (MIRALAX) 17 gram/dose bulk powder Take 17 g by mouth daily 100 g 01/27/2024 documented as of this encounter Ordered Prescriptions Prescription Sig Dispense Quantity Refills Last Filled Start Date End Date oxyCODONE (ROXICODONE) 5 mg immediate release tabletIndications: Pain Take 1 tablet (5 mg total) by mouth every 4 (four) hours as needed for pain 10 tablet 01/27/2024 polyethylene glycol (MIRALAX) 17 gram/dose bulk powder Take 17 g by mouth daily 100 g 01/27/2024 acetaminophen (TYLENOL) 500 mg tablet Take 1 tablet (500 mg total) by mouth every 6 (six) hours as needed for pain 30 tablet 01/27/2024 ibuprofen 200 mg tab/cap Take 3 tablet/capsu le (600 mg total) by mouth every 6 (six) hours as needed for pain 30 tablet 01/27/2024 oxyCODONE (ROXICODONE) 5 mg immediate release tabletIndications: Pain Take 1 tablet (5 mg total) by mouth every 4 (four) hours as needed for pain 10 tablet 01/27/2024 01/27/2024 documented in this encounter Discharge Disposition Disposition Code Departure Means Destination Comment s Discharge to home or self care documented in this encounter H&P Notes * Princess Wilson MD - 01/27/2024 9:09 AM CDT I have reviewed the H&P, examined the patient, and endorse the findings as written. Plan of Care : Based on the above findings, I consider Zenia Sparks to be an acceptable risk for : Procedure(s): LAPAROSCOPIC BILATERAL SALPINGECTOMY Cosigned by Lu Rooney MD at 01/27/2024 10:31 AM CDT Associated attestation - Lu Rooney MD - 01/27/2024 10:31 AM CDT I have seen and examined the patient and agree with the assessment and plan as documented. Source Note - Sathish Mari MD - 01/16/2024 4:45 PM CDT Images from the original note were not included. Center for Preoperative Assessment and Planning Preoperative Evaluation Record Evaluation type/location: TPAP from [facility] Planned procedure site: [facility] OR (Pod 4) Date: 01/16/24 Anesthesia Evaluation NOTE: This note represents a preoperative evaluation initiated via telephone interview. NO PHYSICALEXAM was performed at the time of initial assessment. A physical exam may be added to this note anddocumented below. Zenia Sparks is a 23 y.o. female LAPAROSCOPIC BILATERAL SALPINGECTOMY (Abdomen) Pre-Op Diagnosis Codes: * Encounter for sterilization [Z30.2] * Unwanted fertility [Z30.09] HISTORY HPI Zenia Sparks is a 23 y.o. female who is being evaluated prior to undergoing laparoscopic bilateral salpingectomy-encounter for sterilization/unwanted fertility PMH: Depression, Past Medical History Information obtained from: patient and chart. Information obtained during: Telephone Visit NOTE: This note represents a preoperative evaluation initiated via virtual (video or telephone) interview. NO PHYSICAL EXAM was performed at the time of initial assessment. A physical exam may be added to this note and documented below. Neurological + Psychiatric history - depression Pertinent negatives: seizures; neuromuscular disease; CVA/stroke; TIA; CEA; ICA stenosis; dementia/mild cognitive impairment and carotid artery stent Cardiovascular Pertinent negatives: CAD ; [place] ; CABG ; valvular heart disease; valve replacement; atrial fibrillation; arrhythmia; pacemaker/ICD; PVD; DVT/PE; negative for CHF; drug-eluting stent(s); bare metal stent(s) and coronary angioplasty Hypertension: HTN only during . Respiratory + Current smoker (vaps nicotine) - Counseled to abstain from smoking the day of surgery. Pertinent negatives: COPD; asthma; sleep apnea (KHUSHBOO); pulmonary hypertension; no O2 use outside thehospital and no tracheostomy Hepatic / Heme Pertinent negatives: liver disease; history of anemia; history of thrombocytopenia and history of Doris positive Gastrointestinal + GERD - PRN medication use only. Symptoms weekly but < daily. Pertinent negatives: hiatal hernia Renal / Pertinent negatives: renal disease; dialysis and nephrolithiasis Musculoskeletal/Pain Pertinent negatives: chronic pain; chronic opioid use and previous treatment for opioid use disorder Endocrine / Other + Obesity (BMI >30) (BMI 32.12) + Infectious disease (UTI 2 months ago) - UTI. Pertinent negatives: diabetes mellitus; thyroid disease; cancer history; rheumatological disease and transplanted organ Functional Capacity Functional capacity: 4-6 METs Comments: Walks 30 minutes daily if not more Denies SOB/CP climbing 2 flights of steps Day of Surgery assessments + Possibility of assessed (hCG on DOS) - ruled out by patient's provided history. Review of Systems + easy bruising Pertinent negatives: productive cough; wheezing; SOB; recent cold/flu; fever; chest pain; palpitations; orthopnea; pedal edema; PND; heavy menses; Sickle Cell disease/trait; previous transfusion; transfusion reaction; melena/hematochezia; bleeding problems; syncope; dizziness; muscle weakness; chronic pain; numbness/tingling (RLS); hard of hearing; vision loss (glasses so metimes); heartburn; nausea; dysphagia; diarrhea; dentures/partials; chipped/loose teeth; abdominal pain; diaphoresis and nounexpected weight change Comments: Denies symptoms of UTI PAT Summary and Plans Cardiac risk classification of planned procedure: low cardiac risk. Preoperative assessment status: complete. Additional comments: Zenia Sparks is a 23 y.o. female who is being evaluated prior to undergoing a low cardiac risk surgery. Revised Cardiac Risk Index factors are (none) for a total RCRI of 0 out of 6. Functional capacity is 4-6 METs. Obstructive sleep apnea (KHUSHBOO) screening status is STOP-BANG incomplete but suspected to be 0-2 suggesting low risk for KHUSHBOO. Neck circumference pending.. This assessment was performed via telephone. Therefore the physical exam has been deferred to the day of surgery team. The patient was provided with preoperative instructions for their medications. Patient instructions were provided by telephone and electronically sent via [employer] Patient verbalized understanding of instructions. Blood bank needs for day of procedure: No type and screen needed Pending labs/tests include: POC Hcg Urine TPAP complete Preoperative evaluation performed by Isadora Erwin NP on 01/16/24 at 4:47 PM . Patient Active Problem List Diagnosis Date Noted Encounter for sterilization 11/01/2023 Unwanted fertility 11/01/2023 Past Medical History: Diagnosis Date Depression Hypertension 11/2018 gestational HTN first Past Surgical History: Procedure Laterality Date INCISION AND DRAINAGE 2008 OB History 2 Para 2 Term 2 AB Living 2 SAB IAB Ectopic Multiple 0 Live Births 2 No Known Allergies Med List Status: Nurse Complete Set By: Cheko Araya RN at 01/15/2024 4:52 PM Taking? Last Dose Start Date End Date Provider ARIPiprazole (ABILIFY) 10 mg tablet 01/14/2024 12/18/23 -- Mathew Ramirez MD ibuprofen 200 mg tab/cap Past Week -- -- ProviderMathew MD No current facility-administered medications for this encounter. Current Outpatient Medications: ARIPiprazole (ABILIFY) 10 mg tablet ibuprofen 200 mg tab/cap Social History Tobacco Use Smoking Status Every Day Current packs/day: 0.25 Average packs/day: 0.3 packs/day for 6.4 years (1.6 ttl pk-yrs) Types: Cigarettes, Vaping Start date: 2017 Smokeless Tobacco Never Alcohol Use: Not At Risk (01/15/2024) AUDIT-C Frequency of Alcohol Consumption: Never Average Number of Drinks: Patient does not drink Frequency of Binge Drinking: Never Substance and Sexual Activity Drug Use Not Currently Types: Marijuana Comment: denies smoking marijuana Family History Problem Relation Age of Onset Thyroid disease Mother Aneurysm Father There were no vitals filed for this visit. PT: No results found for requested labs within last 30 days. INR: No results found for requested labs within last 30 days. APTT: No results found for requested labs within last 30 days. Hgb A1C: No results found for requested labs within last 30 days. CBC RBC: No results found for requested labs within last 30 days. RDW: No results found for requested labs within last 30 days. MCHC: No results found for requested labs within last 30 days. MCH: No results found for requested labs within last 30 days. MCV: No results found for requested labs within last 30 days. Hct: No results found for requested labs within last 30 days. Hgb: No results found for requested labs within last 30 days. WBC: No results found for requested labs within last 30 days. MPV: No results found for requested labs within last 30 days. Platelets: No results found for requested labs within last 30 days. RDW CV: No results found for requested labs within last 30 days. RDW Sd: No results found for requested labs within last 30 days. BMP Glucose: No results found for requested labs within last 30 days. Calcium: No results found for requested labs within last 30 days. Sodium: No results found for requested labs within last 30 days. Potassium: No results found for requested labs within last 30 days. CO2: No results found for requested labs within last 30 days. Chloride: No results found for requested labs within last 30 days. BUN: No results found for requested labs within last 30 days. Creatinine: No results found for requested labs within last 30 days. Yuridia index score: 100 DOS Physical Exam Medical history, medications, and allergies reviewed. Attestation: I endorse the findings of the anesthesia pre-evaluation assessment dated: Airway Exam: Mallampati: I Cervical ROM: FROM TM distance: >4 Cardiovascular Exam: Rate: regular Rhythm: regular Pulmonary Exam: LCTA, bilat EENT Exam: trachea midline Dental Exam: Appears intact Current state: Patient's current state is cooperative. Anesthesia Plan ASA 2 My patient is approved for the Anesthesia Controlled Medication protocol when under care of a DRAPERY HANGER Planned anesthesia: General Team communication plan: oral ET tube Induction: Induction: intravenous. Postoperative Plan: Postoperative administration opioids intended. Informed Consent: Discussed plan with DRAPERY HANGER. Anesthesia plan and risks discussed with patient and mother. Consent and Attending signature: I and/or my designee have discussed the anesthesia plan, benefits, possible alternatives, parental presence at time of induction (if indicated), and clinically relevant risks that may include dental injury, unintentional awareness, and/or other complications. The patient and/or parent/legal guardian understand, and agree to proceed. All questions answered. documented in this encounter Miscellaneous Notes * Op Note - Princess Wilson MD - 01/27/2024 11:28 AM CDT Bilateral Salpingectomy Operative Note Attending Surgeon: Lu Rooney MD Surgical Team: Surgeons and Role: * Lu Rooney MD - Primary * Princess Wilson MD - Resident - Assisting DATE OF SURGERY : 01/27/2024 Preoperative Diagnosis: Pre-op Diagnosis * Encounter for sterilization [Z30.2] * Unwanted fertility [Z30.09] Postoperative Diagnosis: Post-op Diagnosis * Encounter for sterilization [Z30.2] * Unwanted fertility [Z30.09] Name of Operation: Procedure(s): LAPAROSCOPIC BILATERAL SALPINGECTOMY Indication for Procedure: This is a 23 year old female with undesired future fertility. The patient was appropriately counseled that the risks of bilateral salpingectomy include regret, bleeding, infection, injury to surrounding organs and risk of procedure failure. Alternative methods of contraception were discussed including LARC. The patient still desired to proceed with the procedure. Consents were signed. Operative Findings: EUA: Lichenification of perineum, otherwise normal external genitalia. Small, mobile, retroverted uterus. Laparoscopy: Normal uterus, tubes and ovaries. Normal liver, appendix and bowel. Description of Procedure: After obtaining the appropriate operative consents, the patient was taken to the operating room, where general anesthesia was obtained without difficulty and found to be adequate. The [facility] She underwent exam under anesthesia with findingsas above. The patient was prepared and draped in the normal sterile fashion. A bivalve speculum wasthen placed in the patient???s vagina and a OptoNova uterine manipulator was applied to the anterior lip of the cervix to provide a means to manipulate the cervix. The speculum was removed from the vagina. A wynn catheter was placed. Attention was then turned to the patient???s abdomen where 5mLs of quarter percent marcaine was infiltrated into the inferior aspect of the umbilical fold. A 5 mm incision was then made at this infraumbilical site with a eleven blade. The anterior abdominal wall was then tented up and 5 mm trocar was inserted into the infraumbilical incision using optical trocar insertion technique. Pneumoperitoneum was obtained using carbon dioxide insufflation to a maximal intra-abdominal pressure of 15 mmHg.At this time a survey of the abdomen and pelvis revealed normal appearing liver edge, normal appearing greater curvature of the stomach, normal appearing omentum, bowels, appendix and the pelvic findi ngs described above. The patient was placed in Trendelenburg position to facilitate movement of thebowel in the upper abdomen. Two additional trocars were then placed, one in the left and one in the right lower quadrant. At each site, 5mLs of 0.25% marcaine was infiltrated and a 5mm incision was made. The port trocars were introduced under direct visualization approximately 10cm lateral from the midline with care taken to avoid abdominal wall vasculature. Laparoscope was moved to a lateral port and the umbilical port site was visualized without evidence of injury upon entry. Laparoscope returned to midline. The Ligasure was introduced. The left fallopian tube was elevated and Ligasure used in a step-burrows fashion to coagulate and cut along the length of the mesosalpinx to remove fallopian tube. In a similar fashion, attention was turned to the right side and fallopian tube removed. The fallopian tubes were removed. Bilateral pedicles were confirmed hemostatic. The instruments were then removed from the patient???s abdomen and the incisions were closed 4-0 monocryl in a subcuticular fashion. The Hulka uterine manipulator was then removed from the cervix and the cervix confirmed hemostatic.The wynn catheter was removed. The patient tolerated the procedure well and was taken to the recovery room in stable condition. Estimated Blood Loss: 5 mL Intraoperative Fluids: 1000mL Urine Output: 50 mL clear urine at end of procedure Specimens: ID Type Source Tests Collected by Time A : Bilateral Fallopian tubes Tissue Fallopian tube, non-tumor SURGICAL PATHOLOGY Lu Rooney MD 01/27/2024 1153 Complications: None Sponge/Instrument/Needle Counts: The sponge, lap and needle counts were correct x 2. Condition on Discharge from the operating room was stable The attending, Dr. Rooney was present for the entire procedure. Princess Wilson MD 01/27/24 Cosigned by Lu Rooney MD at 01/27/2024 9:55 PM CDT Associated attestation - Lu Rooney MD - 01/27/2024 9:55 PM CDT I was present for the entire procedure. * Pre-Procedure Instructions - Isadora Erwin NP - 01/16/2024 4:53 PM CDT Center for Preoperative Assessment and Planning CPAP Clinic Location: [facility] The night before your surgery: * Do not eat anything after midnight the night before your procedure. The morning of your surgery: * You may have clear liquids on your surgery day. You must stop drinking two hours before you arrive to the surgery facility. Acceptable clear liquids include water, clear sports drinks, black coffee, tea, or clear soda. DO NOT drink any milk, creamer, or alcohol. * Your surgeon's office may have provided additional instructions or restrictions. Please follow those instructions. * You may brush your teeth and rinse your mouth out. * Do not wear jewelry, body piercings, makeup, hairpins, false eyelashes or contact lenses to the hospital. * Leave any valuables at home or with your family. * If you are still having menstrual cycles, you should come with a full bladder on the morning of surgery in order to provide a urine sample. * If you are going to be admitted after surgery at [facility], COVID testing may be performed on the day of surgery, even if you are up to date on your COVID-19 vaccine. * If having surgery at [facility], you may want to bring a credit card if you want to use our Mobile Pharmacy for your discharge medications. Mobile pharmacy is not available at [facility], the Orthopedic Center, or the [place] [facility]. Outpatient Surgery: * You must have a responsible adult drive you home and stay with you for 24 hours after your surgery * You cannot be alone at home or in a hotel * Please call your surgeon's office if you do not have someone to drive you home and/or stay with you after surgery * Please bring any items you may need to spend the night in the hospital. Sometimes patients need to be cared for in the hospital overnight. If you are a smoker: * You should prepare for your surgery and recovery well ahead of time. Stop smoking at least 2 weeks before surgery to help prevent infection and help your body recover faster. Ask your surgeon for tools to help you quit or call 1-640-ONZUCOX ( ). Visit Smokefree.gov for more information. * Do not smoke during the 24 hours before surgery. Instructions For Your Medications: Pre-Surgery Instructions: Medication Instructions ARIPiprazole (ABILIFY) 10 mg tablet Take the evening prior to surgery ibuprofen 200 mg tab/cap Stop taking 5 days prior to surgery TUMS Don't take on day of surgery General Instructions For Medications: * Stop all of these medications 5 days prior to your surgery: excedrin, motrin, advil, ibuprofen, aleve, naproxen, meloxicam, celebrex, celecoxib. For medications that you are instructed to take on the morning of surgery, take the medications with a few sips of water. Stop all of these medications 7-14 days prior to your surgery: Vitamin E, Herbal medicines, Diet Pills If you have pain, you may take tylenol (acetaminophen). Do not take more than 6 tablets or 3000 mg (3 g) within a 24 period. Call your surgeon and the CPAP clinic if any of the following happens before surgery: Any changes in your health You have a fever You have any signs of an infection (chest, urinary tract or tooth) You have been to the Emergency Room or were in the hospital You have started taking any new medications You have questions about a bowel prep or special diet before surgery You have symptoms of COVID-19 such as a new or worsening cough, shortness of breath, fever, body aches, loss of taste or smell, diarrhea or vomiting, or sore throat. You have a household contact with COVID-19. You test positive for COVID-19. * Perioperative Nursing Note - Cheko Araya RN - 01/15/2024 4:54 PM CDT [facility] Perioperative Nursing Note Telephone Preoperative Evaluation ([facility]) - TELEPHONE ONLY, NO PHYSICAL EXAM Date: 01/15/24 This assessment was completed with the patient. Vitals: 01/15/24 1645 Weight: 77.1 kg (170 lb) Height: 154.9 cm (5' 1 ) CHEST CIRCUMFERENCE: Social History Tobacco Use Smoking Status Every Day Current packs/day: 0.25 Average packs/day: 0.3 packs/day for 6.4 years (1.6 ttl pk-yrs) Types: Cigarettes, Vaping Start date: 2017 Smokeless Tobacco Never Substance and Sexual Activity Drug Use Not Currently Types: Marijuana Comment: denies smoking marijuana Alcohol Use Q1: How often do you have a drink containing alcohol?: Never Q2: How many drinks containing alcohol do you have on a typical day when you are drinking?: Patientdoes not drink Q3: How often do you have six or more drinks on one occasion?: Never Outpatient Medications Marked as Taking for the 01/27/24 encounter (Hospital Encounter) Medication Sig Dispense Refill ARIPiprazole (ABILIFY) 10 mg tablet Take 1 tablet (10 mg total) by mouth nightly at bedtime ibuprofen 200 mg tab/cap Take 2 tablet/capsule (400 mg total) by mouth every 6 (six) hours as needed for pain Implants No active implants to display in this view. 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 Communication Needs: Glasses Does caregiver's language differ from patient's?: No Assistive Devices/DME: Eyeglasses Discharge Planning Type of Residence: Private residence Living Arrangements: Spouse/significant other, Children Support Systems: Family members, Spouse/significant other Assistance Needed: Aunt to provide discharge transportation Patient expects to be discharged to:: Private residence RN PSYCHIATRIC NO ADDITIONAL COMMENTS/ FOLLOW UP * Pre-Procedure Instructions - hCeko Araya RN - 01/15/2024 4:53 PM CDT [facility] ([facility]) PRE-SURGICAL NURSING INSTRUCTIONS Telephone Assessment General Information Discussed with Patient: Surgery location provided to patient. Arrival time and surgical time will be provided to the patient by their surgeon. You should wear clothing that is clean, loose, comfortable and easy to get in and out of on the dayof surgery. You should remove nail coverings, artificial nails and nail norwegian prior to the day of surgery. You should leave your valuables and any jewelry at home. No metal or piercings are allowed in the operating room. You should bring your insurance card, a photo ID (example: Computer Numeric Control Setter's License) and a method of payment for any insurance copay, deductible or copay for discharge medications. You should bring a complete, up-to-date, list of all your medications on the day of surgery, including any over the counter medications or supplements you may take. Please note on your medication list, the last date & time you took each medication. The healthcare team, on the day of surgery, will ask for this information. You should bring your Advanced Directive and/or Living Will with you on the day of surgery if you have not verified a copy is already in your Epic Chart. If you are having surgery at [facility], please arrive on the day of surgery with the name and phone number of your local 24 hour pharmacy. Due to evening discharges, your routine pharmacy may be closed. In order to obtain your prescriptions that evening, your surgeon may need to send prescriptions to this pharmacy or have you take prescriptions to this pharmacy when you are discharged. Without this information, you may not be able to obtain your prescriptions that evening. A Guide for Patients Having Surgery: Your Pathway to Excellent Care OUR GOAL IS TO PROVIDE YOU WITH EXCELLENT CARE Use this guide to learn about what you can do before, during and after surgery to help your recovery. You are the most important person on your health care team. By becoming informed and involved, you can contribute to the success of your surgery. If your surgeon's directions are different than those in this guide, talk with your nurse or surgeon to confirm the information. It is important that you understand how to take care of yourself at home after surgery. Be sure to bring this guide with you on the day of surgery and take it home with you after surgery. Write down questions for your nurse or surgeon on the last page of this booklet. Important pages to be reviewed BEFORE surgery: Page 1: QR codes for Surgery Center maps Page 3: Types of Anesthesia Page 5: Tips for the day & night before surgery Page 6: When to stop eating BEFORE surgery and examples of clear liquids Page 7-10: Preventing Infection: Chlorhexidine Gluconate (CHG) Bathing Instructions You may access A Guide for Patients Having Surgery: Your Pathway to Excellent Care by the followinglink: [email or web address] How To Prepare Your Skin For Surgery Below is the Pre-Surgical Bathing Protocol you should follow for your surgery. If your surgeon provides you different bathing instructions, please follow your surgeon's orders. Normal Bathing: Bathe with regular soap the night before and/or day of surgery. Normal Bathing Protocol Bathe with your normal soap the night before and/or the morning of surgery. Wear clean clothes or pajamas to sleep in. After showering DO NOT put on deodorant, hair products, conditioners, lotions, creams, powders, Vaseline or any non-essential products. Remove nail coverings, artificial nails and nail norwegian. Place clean linens on your bed the night before surgery. Shaving: You may shave your face, legs and underarms during your evening shower. Avoid shaving on the day of surgery. Travel/Exposure Screening: Travel Screening Have you traveled outside the [place] in the last 6 months?: No Exposure Screening Have you been exposed to anyone who is sick in the last 30 days?: No Have you been exposed to or tested positive for COVID-19 within the last 10 days?: No Infectious Disease Screening Are you having any of the following:: None As of 06/05/2022 any COVID TESTING required for surgery will be set up by your surgeon's office. Please reach out to your surgeon's office if you develop any COVID symptoms, test positive for COVID or are exposed to a COVID positive person. If you have questions, please call the [facility] Staff at [phone], Saturday-Saturday 8am-4:30pm. All patients should read the below section: COVID 19 Updates & Visitor Policy: Please access [email or web address] for the most updated information. Information on [facility]: Please view [email or web address] (Patient & Visitor Information) for additional details regarding Advanced Directive forms, AWARE, directions, parking information, lodging, Internet access, dining and more. Information on [facility] or [facility] ([facility]): Please view [email or web address] (Patient and Visitor Information) for parking/directions and more. For MyChart information, to activate account or password recovery, please go to [email or web address] or call [phone] (toll-free: [phone]), Sat- Saturday 8am-5pm. Information for Suicide Prevention: National Suicide Prevention Lifeline (9-991- 282-TALK (1849)) or call or text 485. Chat resources: [email or web address]. Surgery Times: For patients having surgery @ [facility] or [facility] ([facility]), if your surgeon's office has not notified you of your surgery time by NOON THE BUSINESS DAY BEFORE your surgery, please call [phone] and ask for your surgeon's office Dr. Rooney [facility] ([facility]) does not provide arrival times for the day of surgery or provide the duration of surgery. This information is provided by your surgeon'soffice or by the center where you are having surgery. We appreciate your understanding. documented in this encounter Plan of Treatment Not on file documented as of this encounter Procedures Procedure Name Priority Date/Time Associated Diagnosis Comments SURGICAL PATHOLOGY Routine 01/27/2024 11 :53 AM CDT Encounter for sterilization Unwanted fertility LAPAROSCOPIC TUBAL LIGATION 01/27/2024 10:57 AM CDT Encounter for sterilization Unwanted fertility Case Notes 12/08@1552 Case length - Case message to Lilia CF04/10@1125 Per Lilia via case message, case to be rescheduled. CF04/10@1110 Per Lilia via case message, Please place this case back in the depot. CF3/@0956- Changed location per Lilia via case msg.EF3/@0750- Sent msg to Lilia about case being on pod 4.EF3/@0748- MISSING [facility] EMAIL SENT. EF POCT HCG, URINE Routine 01/27/2024 8:48 AM CDT documented in this encounter Results * Surgical pathology (01/27/2024 11:53 AM CDT) Tissue (Fallopian tube, non-tumor) 01/27/2024 11:53 AM CDT Narrative PATHOLOGY [facility] - 01/29/2024 11:46 AM CDT EPIC results best viewed via link to PDF [facility] of Surgical Pathology [place] [address] Note to Patients: This report may contain a detailed description of human tissue sent by a health care provider to the laboratory for pathologic evaluation. The content of this report is essential for diagnosis and may provide important critical findings. This information may be unfamiliar to patients to review without a medical professional present. It is advised that the patient review this report in the presence of a health care provider who can answer questions and explain the details. SURGICAL PATHOLOGY REPORT FINAL Patient Name: ?? ZENIA SPARKS Gender: ??F : ??2000 (Age: 23) Address: ??[address] [place] [address] ??[id number] Hospital #: ??[id number] Taken:01/27/2024 Received:01/27/2024 Reported: 01/29/2024 Patient Type: [facility] SDS ?? Service: Surgery Location: Physician(s): ??Chris Maxwell M.D. Diagnosis: A. Fallopian tubes, bilateral, salpingectomy ? - Fallopian tubes with no histopathologic abnormality (complete cross sections identified x2) ?? uxc/01/29/2024 08:07 By this signature, I attest that the above diagnosis is based upon my personal examination of the slides(and/or other material indicated in the diagnosis). Maryam Spencer MD PhD Report Electronically Reviewed and Signed Out By ??Maryam Spencer MD PhD 01/29/2024 11:46:19 Krihsna Lama M.D. History: The patient is a 23-year-old A0 woman with undesired future fertility. ??Operative procedure: Bilateral salpingectomy. Specimen(s) Received: A: Bilateral fallopian tubes Gross Description: Received in formalin, labeled with the patient's identifiers and bilateral fallopian tubes R2 pink-purple fallopian tubes with unspecified laterality, measuring 7.0 cm in length by 0.4 cm in diameter each. ??The tubes are sectioned to show bilateral patent lumen with no gross lesions. ??Bisected fimbria three cross sections of each tube are submitted in blocks A 1 and A2. ??Jar 1. ?? axxm/01/27/2024 14:49 PA(s): Sylvie Tellez MS, JOHN ([facility])CM By this signature, I attest that the above diagnosis is based upon my personal examination of the slides(and/or other material). Addenda/Procedures The performance characteristics of some immunohistochemical stains, fluorescence in-situ hybridization tests and immunophenotyping by flow cytometry cited in this report (if any) were determined by the Surgical Pathology and Flow Cytometry Departments at [facility] as part of an ongoing cloth tester quality program and in compliance with federally mandated regulations drawn from the Clinical Laboratory Improvement Act of 1988 (CLIA '88). ??Some of these tests rely on the use of analyte specific reagents and are subject to specific labeling requirements by the US Food and Drug Administration. ??Such diagnostic tests may only be performed in a facility that is certified by the Department of Health and Human Services as a high complexity laboratory under CLIA '88. ??The FDA has determined that such clearance or approval is not necessary. ??This test is used for clinical purposes. ??It should not be regarded as investigational or for research. ??Nevertheless, federal rules concerning the medical use of analyte specific reagents require that the following disclaimer be attached to the report: This test was developed and its performance characteristics determined by the Surgical Pathology and Flow Cytometry Departments of [facility]. ??It has not been cleared or approved by the U. S. Food and Drug Administration. IMAGES AND SCANNED DOCUMENTS, IF INCLUDED, ONLY VIEWABLE IN PDF VERSION OF REPORT us Lu Rooney MD LAB PATHOLOGY ORDERABLE S Final Result PATHOLOGY [facility] 3rd Floor [place], [place] [phone] * POCT hCG, urine (01/27/2024 8:48 AM CDT) HCG, ur, POC Negative Negative Lot Number [id number] QC Backgroud Clear Acceptable QC Control Line Acceptable Urine 01/27/2024 8:48 AM CDT us Lala Martines MD POINT OF CARE TEST ORDERABL ES Final Result documented in this encounter Visit Diagnoses Diagnosis Encounter for sterilization Sterilization Unwanted fertility Encounter for sterilization Sterilization Unwanted fertility documented in this encounter Admitting Diagnoses Diagnosis Encounter for sterilization Sterilization Unwanted fertility documented in this encounter Administered Medications Inactive Administered Medications - up to 3 most recent administrations Medication Order MAR Action Action Date Dose Rate Site acetaminophen (TYLENOL) tablet 1,000 mg 1,000 mg, oral, Once as needed, headaches, fever, Starting on Sat01/27/24 at 1210, For 1 dose, Phase I, When able to tolerate PO., Indications: PainIndications:Pain Given 01/27/2024 12:51 PM CDT 1,000 mg BUPivacaine (MARCAINE) 0.25 % (2.5 mg/mL) preservative free injection As needed, Starting on Sat01/27/24 at 1156, Intra-Op Given 01/27/2024 11:56 AM CDT 12 mL diphenhydrAMINE (BENADRYL) 50 mg/mL injection 12.5 mg 12.5 mg, intravenous, Administer over 2 Minutes, Every 15 min PRN, itching, Starting on Sat01/27/24 at 1210, For 2 doses, Phase I, Max cumulative dose 50 mg., Indications: ItchingIndications:Itching fentaNYL (SUBLIMAZE) preservative free injection 50 mcg 50 mcg, intravenous, Once as needed, breakthrough pain, Starting on Sat01/27/24 at 1210, For 1 dose, Phase I, Administer for uncontrolled or increasing pain while in PACU only. haloperidol (HALDOL) injection 1 mg 1 mg, intravenous, Once as needed, nausea, vomiting, Starting on Sat01/27/24 at 1210, For 1 dose, Phase I, If nausea/vomiting not relieved by ondansetron within 30 minutes or if ondansetron has been given within the last 6 hours. Given 01/27/2024 12:57 PM CDT 1 mg HYDROmorphone (DILAUDID) injection 0.2 mg 0.2 mg, intravenous, Administer over 2 Minutes, Every 10 min PRN, 1st line for pain, Starting on Sat01/27/24 at 1210, Phase I, Switch to 2nd line analgesic order if pain is uncontrolled or increasing after 2 doses. Notify Anesthesiologist if total PACU dose reaches 2 mg and pain score 5/10 or more., Indications: PainIndications:Pain HYDROmorphone (DILAUDID) injection 0.4 mg 0.4 mg, intravenous, Administer over 2 Minutes, Every 10 min PRN, 2nd line for pain, Starting on Sat01/27/24 at 1210, Phase I, May administer 10 mintes after 2nd dose of 1st line analgesic agent for uncontrolled or increasing pain. Revert to 1st line dose if POSS of 3. Notify Anesthesiologist if total PACU dose reaches 2 mg and pain score 5/10 or more., Indications: PainIndications:Pain Lactated Ringer's (LR) infusion 30 mL/hr, intravenous, Continuous, Starting on Sat01/27/24 at 0915, Pre-Op Restarted 01/27/2024 11:42 AM CDT Rate/Dose Verify 01/27/2024 10:55 AM CDT 30 mL/ hr New Bag 01/27/2024 8:56 AM CDT 30 mL/hr 30 mL/hr meperidine (DEMEROL) preservative free injection 12.5 mg 12.5 mg, intravenous, Administer over 5 Minutes, Every 10 min PRN, shivering, Starting on Sat01/27/24 at 1210, For 2 doses, Phase I, Max cumulative dose 25 mg., Indications: ShiveringIndications:Shivering naloxone (NARCAN) 0.4 mg/mL injection 0.04-0.4 mg 0.04-0.4 mg, intravenous, Once as needed, other, excessive sedation/respiratory depression, Starting on Sat01/27/24 at 1210, For 1 dose, Phase I, Dilute 0.4 mg with 9 mL NS (final concentration 0.04 mg/mL). For respiratory depression (respiratory rate less than 6), administer 0.4 mg IVP over 30 seconds. For excessive sedation administer 0.04 mg (1 mL) every 1 minute until desired level of alertness. For IV, administer over 30 seconds., Indications: Opioid ToxicityIndications:Opioid Toxicity ondansetron (ZOFRAN) injection 4 mg 4 mg, intravenous, Administer over 2 Minutes, Once as needed, nausea, vomiting, Starting on Sat01/27/24 at 1210, For 1 dose, Phase I, Proceed to haloperidol if ondansetron has been given within the last 6 hours. oxyCODONE (ROXICODONE) tablet 5 mg 5 mg, oral, Once as needed, 1st line for pain, Starting on Sat01/27/24 at 1210, For 1 dose, Phase I, When able to tolerate PO., Indications: PainIndications:Pain sodium chloride 0.9% irrigation As needed, Starting on 6/17/24 at 1108, Intra-Op Given 01/27/2024 11:08 AM CDT 500 mL Surgical Site documented in this encounter Discontinued Medications Medication Sig Discontinue Reason Start Date End Da te HYDROcodone-acetaminophe n (NORCO) 5-325 mg per tabletIndications:Pain Take 1 tablet by mouth every 4 (four) hours as needed for pain Therapy completed 11/12/2020 01/15/2024 ibuprofen (ADVIL,MOTRIN) 600 mg tabletIndications:Cramps Take 1 tablet (600 mg total) by mouth every 6 (six) hours as needed for pain Therapy completed 11/12/2020 01/15/2024 ibuprofen 200 mg tab/cap Take 2 tablet/capsule (400 mg total) by mouth every 6 (six) hours as needed for pain 01/27/2024 oxyCODONE (ROXICODONE) 5 mg immediate release tabletIndications:Pain Take 1 tablet (5 mg total) by mouth every 4 (four) hours as needed for pain 01/27/2024 01/27/2024 documented as of this encounter Historical Medications * This list may reflect changes made after this encounter. calcium carbonate (TUMS) 500 mg (200 mg elemental calcium) chewable tablet Take 1 tablet/chew tab (500 mg total) by mouth as needed for indigestion or heartburn ARIPiprazole (ABILIFY) 10 mg tablet Take 1 tablet (10 mg total) by mouth nightly at bedtime 12/18/2023 ibuprofen 200 mg tab/cap Take 2 tablet/capsule (400 mg total) by mouth every 6 (six) hours as needed for pain added in this encounter Active and Recently Administered Medications Times are shown in CDT. Continuous Medication Order 01/25/2024 01/26/2024 01/27/2024 Lactated Ringer's (LR) infusion 30 mL/hr, intravenous, Continuous, Starting on 01/27/24 at 0915, Pre-Op 0856 (New Bag - Prov ider: Maycol Ordoñez RN)1055 (Rate/Dose Verify - Provider: Bobbi Douglas MD)1141 (Paused - Provider: Bobbi Douglas MD - Comment: Switch to gravity)1142 (Restarted - Provider: Bobbi Douglas MD)1759 (Due: Stopped) PRN Medication Order 01/25/2024 01/26/2024 01/27/2024 acetaminophen (TYLENOL) tablet 1,000 mg (COMPLETED) 1,000 mg, oral, Once as needed, headaches, fever, Starting on Sat01/27/24 at 1210, For 1 dose, Phase I, When able to tolerate PO., Indications: Pain 1251 (Given - Provid er: Montse Gabriel RN) BUPivacaine (MARCAINE) 0.25 % (2.5 mg/mL) preservative free injection (CANCELED) As needed, Starting on Sat01/27/24 at 1156, Intra-Op 1156 (Given - Provid er: Lu Rooney MD) diphenhydrAMINE (BENADRYL) 50 mg/mL injection 12.5 mg 12.5 mg, intravenous, Administer over 2 Minutes, Every 15 min PRN, itching, Starting on Sat01/27/24 at 1210, For 2 doses, Phase I, Max cumulative dose 50 mg., Indications: Itching fentaNYL (SUBLIMAZE) preservative free injection 50 mcg 50 mcg, intravenous, Once as needed, breakthrough pain, Starting on Sat01/27/24 at 1210, For 1 dose, Phase I, Administer for uncontrolled or increasing pain while in PACU only. haloperidol (HALDOL) injection 1 mg (COMPLETED) 1 mg, intravenous, Once as needed, nausea, vomiting, Starting on Sat01/27/24 at 1210, For 1 dose, Phase I, If nausea/vomiting not relieved by ondansetron within 30 minutes or if ondansetron has been given within the last 6 hours. 1257 (Given - Provid er: Montse Gabriel RN) HYDROmorphone (DILAUDID) injection 0.2 mg 0.2 mg, intravenous, Administer over 2 Minutes, Every 10 min PRN, 1st line for pain, Starting on Sat01/27/24 at 1210, Phase I, Switch to 2nd line analgesic order if pain is uncontrolled or increasing after 2 doses. Notify Anesthesiologist if total PACU dose reaches 2 mg and pain score 5/10 or more., Indications: Pain HYDROmorphone (DILAUDID) injection 0.4 mg 0.4 mg, intravenous, Administer over 2 Minutes, Every 10 min PRN, 2nd line for pain, Starting on Sat01/27/24 at 1210, Phase I, May administer 10 mintes after 2nd dose of 1st line analgesic agent for uncontrolled or increasing pain. Revert to 1st line dose if POSS of 3. Notify Anesthesiologist if total PACU dose reaches 2 mg and pain score 5/10 or more., Indications: Pain meperidine (DEMEROL) preservative free injection 12.5 mg 12.5 mg, intravenous, Administer over 5 Minutes, Every 10 min PRN, shivering, Starting on Sat01/27/24 at 1210, For 2 doses, Phase I, Max cumulative dose 25 mg., Indications: Shivering naloxone (NARCAN) 0.4 mg/mL injection 0.04-0.4 mg 0.04-0.4 mg, intravenous, Once as needed, other, excessive sedation/respiratory depression, Starting on Sat01/27/24 at 1210, For 1 dose, Phase I, Dilute 0.4 mg with 9 mL NS (final concentration 0.04 mg/mL). For respiratory depression (respiratory rate less than 6), administer 0.4 mg IVP over 30 seconds. For excessive sedation administer 0.04 mg (1 mL) every 1 minute until desired level of alertness. For IV, administer over 30 seconds., Indications: Opioid Toxicity ondansetron (ZOFRAN) injection 4 mg 4 mg, intravenous, Administer over 2 Minutes, Once as needed, nausea, vomiting, Starting on Sat01/27/24 at 1210, For 1 dose, Phase I, Proceed to haloperidol if ondansetron has been given within the last 6 hours. oxyCODONE (ROXICODONE) tablet 5 mg 5 mg, oral, Once as needed, 1st line for pain, Starting on Sat01/27/24 at 1210, For 1 dose, Phase I, When able to tolerate PO., Indications: Pain sodium chloride 0.9% irrigation (CANCELED) As needed, Starting on Sat01/27/24 at 1108, Intra-Op 1108 (Given - Provid er: Lu Rooney MD) documented in this encounter Orders Medications Ordered That Doc ht Not Have Been Administered Count Last Ordered Date First Ordered Date Carrier Fluids for Secondary Infusion - 0.9% Sodium Chloride 1 01/27/2024 diphenhydrAMINE (BENADRYL) 5 0 mg/mL injection 12.5 mg 1 01/27/2024 fentaNYL (SUBLIMAZE) preserv ative free injection 50 mcg 1 01/27/2024 HYDROmorphone (DILAUDID) injection 0.2 mg 1 01/27/2024 HYDROmorphone (DILAUDID) injection 0.4 mg 1 01/27/2024 meperidine (DEMEROL) preserv ative free injection 12.5 mg 1 01/27/2024 naloxone (NARCAN) 0.4 mg/mL injection 0.04-0.4 mg 1 01/27/2024 ondansetron (ZOFRAN) injection 4 mg 1 01/26 oxyCODONE (ROXICODONE) tablet 5 mg 1 2023 sodium chloride 0.9% flush 0.5-20 mL 1 01/10 Discharge Count Last Ordered Date First Orde red Date DISCHARGE PATIENT 1 01/27/2024 documented in this encounter Care Teams Preform Plate Maker Relationship Specialty Start Date End Date Unknown, Notinfile PCP - General 01/17/24 documented as of this encounter
--- OUTSIDE RECORDS SUMMARY | 2024-08-16 21:38 | XMS_ITS | Encounter Summary ---
Author Organization [facility] Healthcare Address [facility] [place] [address] Care Team Providers Care Tube Mill Operator Name Role Phone No, Physician Primary Care Provider [phone] Reason for Visit * Reason Comments Problem edema in bilateral l ower extremities Encounter Details Date Type Department Care Team (Latest Contact Info) Description 11/08/2018 10:36 PM CDT - 11/08/2018 11:30 PM CDT Hospital Encounter [facility] [address] [place] [address] Dunia Phillips MD [address] [place], [place] [id number] Discharge Disposition: Discharge to home or self care Social History Tobacco Use Types Packs/Day Years Used Date Smoking Tobacco: Every Day Cigarettes Smokeless Tobacco: Never Alcohol Use Standard Drinks/Week Comments Never 0 (1 standard drink = 0.6 oz pur e alcohol) AUDIT-C Answer Date Recorded Frequency of Alcohol Consumption Never 10/22/2018 Average Number of Drinks Not on file 019 Frequency of Binge Drinking Not on file 10/10 Comments Yes Sex and Gender Information Value Date Recorded Sex Assigned at Not on file Legal Sex Female 6:01 PM [employer] Gender Identity Not on file Sexual Orientation Not on file documented as of this encounter Last Filed Vital Signs Vital Sign Reading Time Taken Comments Blood Pressure 130/69 11/08/2018 11:17 PM CDT Pulse 107 11/08/2018 11:17 PM CDT Temperature - - Respiratory Rate - - Oxygen Saturation - - Inhaled Oxygen Concentration - - Weight - - Height - - Body Mass Index - - documented in this encounter Discharge Instructions * Discharge Instructions* Nicole Cho RN - 11/08/2018 11:25 PM CDT Return to office on next scheduled appointment. * Attachments The following attachments cannot be sent through Care Everywhere. * at 35 to 38 Weeks (Discharge Care) (Greenlandic) documented in this encounter Medications at Time of Discharge iron aspgly,[id number] A-Ca-suc [id number] ic-sf-xsg-mg capsule Take by mouth 11/22/2018 sertraline (ZOLOFT) 50 mg tablet Take 50 mg by mouth daily 11/12/2020 documented as of this encounter Discharge Disposition Disposition Code Departure Means Destination Discharge to home or self care documented in this encounter Nursing Notes * Nicole Cho RN - 11/08/2018 11:35 PM CDT Discharged home as ordered, printed discharge instructions given, no questions * Nicole Cho RN - 11/08/2018 10:51 PM CDT Was just checked for pre-eclapsia on Saturday and was told to come in if she has any symptoms. Noticed swelling in feet yesterday, headache today. No swelling noted in feet or lower legs. States headache is gone now, took tylenol (1000mg) about 2100. documented in this encounter Plan of Treatment Not on file documented as of this encounter Procedures Procedure Name Priority Date/Time Associated Diagnosis Comments URINALYSIS AND REFLEX TO MICROSCOPIC AND CULTURE STAT 11/08/2018 10:42 PM CDT DRUGS OF ABUSE SCREEN, URINE WITHOUT CONFIRMATION STAT 11/08/2018 10:42 PM CDT URINALYSIS, MICROSCOPIC ONLY STAT 11/08/2018 10:42 PM CDT URINE CULTURE STAT 11/08/2018 10:42 PM CDT documented in this encounter Results * Urine culture Urine (11/08/2018 10:42 PM CDT) Report Final Report: Less than 100,000 colonies/mL (clinically insignificant growth based on current clinical standards) [facility]) Comment:Testing performed by : [facility], [address] [place]., [address] Organism (CLINICALLY INSIGNIFICANT GROWTH [facility] ([place]) Urine 11/08/2018 10:4 2 PM CDT 11/09/2018 3:06 AM CDT Narrative [facility]) - 11/10/2018 7:47 AM CDT Urine culture reflexed based upon urinalysis results. Testing performed by [facility] Microbiology Laboratory ([phone]) us Dunia Phillips MD LAB MICROBIOLOGY - GENER AL ORDERABLES Final Result [facility]) [address] [facility] Department [place] [address] * Drug Screen, Urine without Confirmation (11/08/2018 10:42 PM CDT) Amphetamine, ur Not Detected CutOff 500ng/mL [facility] ([place]) Comment: Interpretive Data - Amphetamines: ??Samples containing greater than 500 ng/mL d-methamphetamine ??or other cross-reacting amphetamine compounds are reported as positive. ??Amphetamine immunoassays are subject to significant false positive rates due to cross-reactivity of non-amphetamine drugs. Current Interpretive Data was last reviewed 2018. Barbiturates, ur Not Detected CutOff 200ng/mL [facility] ([place]) Comment: Interpretive Data - Barbiturates: ??Samples containing greater than 200 ng/mL secobarbital or other cross-reacting barbiturate compounds are reported as positive. ??False positive and false negative results are possible. Current Interpretive Data was last reviewed 2018. Benzodiazepines, ur Not Detected CutOff 100ng/mL [facility] ([place]) Comment: Interpretive Data - Benzodiazepines: ??Samples containing greater than 100 ng/mL nordiazepam or other cross-reacting compounds are reported as positive. ?? False positive and false negative results are possible. ?? Current Interpretive Data was last reviewed 2018. Cannabinoids, ur Not Detected CutOff 50 ng/mL [facility] ([place]) Comment: Interpretive Data - Cannabinoids: ??Samples containing greater than 50 ng/mL delta-9 THC -COOH or other cross-reacting compounds are reported as positive. ??False positive and false negative results are possible. ?? Current Interpretive Data was last reviewed 2018. Cocaine, ur Not Detected CutOff 150ng/mL [facility] ([place]) Comment: Interpretive Data - Cocaine: ??Samples containing greater than 150 ng/mL benzoylecgonine or other cross-reacting compounds are reported as positive. False positive and false negative results are possible. Current Interpretive Data was last reviewed 2018. Methadone, ur Not Detected CutOff 300ng/mL [facility] ([place]) Comment: Interpretive Data - Methadone: ??Samples containing greater than 300 ng/mL d,l-methadone or other cross-reacting compounds are reported as positive. ??False positive and false negative results are possible. Current Interpretive Data was last reviewed 2018. Opiates, ur Not Detected CutOff 300ng/mL [facility] ([place]) Comment: Interpretive Data - Opiates: ??Samples containing greater than 300 ng/mL morphine or other cross-reacting compounds are reported as positive. ??False positive and false negative results are possible. Current Interpretive Data was last reviewed 2018. Oxycodone, ur Not Detected CutOff 100ng/mL [facility] ([place]) Comment: Interpretive Data - Oxycodone: ??Samples containing greater than 100 ng/mL oxycodone or other cross-reacting compounds are reported as positive. ??False positive and false negative results are possible. ?? Current Interpretive Data was last reviewed 2018. Phencyclidine, ur Not Detected CutOff 25 ng/mL [facility] ([place]) Comment: Interpretive Data - Phencyclidine: ??Samples containing greater than 25 ng/mL phencyclidine or other cross-reacting compounds are reported as positive. ??False positive and false negative results are possible. ?? Current Interpretive Data was last reviewed 2018. Urine Creatinine 70 mg/dL [facility] ([place]) Comment: Interpretive Data Urine Creatinine: < 10 mg/dL is extremely dilute = or > 10 but < 20 mg/dL is dilute = or > 20 mg/dL is normal Current Interpretive Data was last revised on 2017. Urine 11/08/2018 10:4 2 PM CDT 11/08/2018 10:59 PM CDT Narrative [facility] - 11/08/2018 11:16 PM CDT Drug of Abuse screening is performed by immunoassay for medical purposes only. ??This is not to be used for Pain Management purposes. Dunia Phillips MD LAB URINE ORDERABLES Fin al Result Performing Organization Address [facility] de Phone Number [facility] ([place]) [address] [facility] Department [place] [address] * (ABNORMAL) Urinalysis, microscopic only (11/08/2018 10:42 PM CDT) WBC, ur 11-20(A) 0 - 5 /HPF [facility] ([place] RBC, ur 0-5 0 - 2 /HPF [facility] ([place] Epithelial cells, squamous, ur 1-5 0 - 5 /HPF [facility] ([place]) Bacteria, ur Negative [facility] Hyaline casts, ur 1-5 0 - 10 /LPF [facility] ([place]) Urine 11/08/2018 10:4 2 PM CDT 11/08/2018 10:45 PM CDT Narrative [facility] ([place] - 11/08/2018 10:55 PM CDT Dunia Phillips MD LAB URINE ORDERABLES Fin al Result [facility] ([place]) [address] [facility] Department [place] [address] * (ABNORMAL) Urinalysis reflex to microscopic and culture Urine (11/08/2018 10:42 PM CDT) Color, ur Yellow Yellow [facility] ([place]) Clarity, ur Clear Clear [facility] ([place]) Specific gravity, ur 1.011 1.010 - 1.025 [facility] ([place]) pH, urine 7.0 [facility]) Protein, ur ql Negative Negative [facility] ([place]) Glucose, ur ql Negative Negative [facility] ([place]) Ketones, ur Negative Negative [facility] ([place]) Bilirubin, ur Negative Negative [facility] ([place]) Blood, ur Negative Negative [facility]) Urobilinogen, ur 0.2 mg/dL [facility] ([place]) Nitrite, ur Negative Negative [facility]) Leukocyte esterase, ur Trace(A) Negative [facility] ([place]) Urine 11/08/2018 10:4 2 PM CDT 11/08/2018 10:45 PM CDT Narrative [facility] ([place]) - 11/08/2018 10:55 PM CDT ?? Urine pH is affected by diet, medications, systemic acid-base disturbances, and renal tubular function. ??pH may affect urinary stone formation. ??For example, urine pH below 6.0 may help reduce the tendency for calcium phosphate stones and pH greater than 6.0 may reduce the tendency for uric acid stone formation. Source: [employer]. Last revised 08-22-2017 us Dunia Phillips MD LAB MICROBIOLOGY - GENER AL ORDERABLES Final Result [facility] ([place]) [address] [facility] [place] [address] documented in this encounter Visit Diagnoses Not on filedocumented in this encounter Care Teams Tube Mill Operator Relationship Specialty Start Date End Date No, Physician PCP - General 10/22/18 11/09/20 documented as of this encounter
--- OUTSIDE RECORDS SUMMARY | 2024-08-16 21:38 | XMS_ITS | Encounter Summary ---
Author Organization [facility] Healthcare Address [address] [place] [address] Care Team Providers Care Sketch Liner Name Role Phone Tg Melgar MD Primary Care Provider Encounter Details Date Type Department Care Team (Latest Contact Info) Description 02/10/2018 2:16 PM CDT - 02/10/2018 11:59 PM CDT Hospital Encounter [facility] Discharge Disposition: Discharge to home or self care Social History Tobacco Use Types Packs/Day Years Used Date Smoking Tobacco: Never Assessed Comments Unknown Sex and Gender Information Value Date Recorded Sex Assigned at Not on file Legal Sex Female 6:01 PM [employer] Gender Identity Not on file Sexual Orientation Not on file documented as of this encounter Discharge Disposition Disposition Code Departure Means Destination Discharge to home or self care documented in this encounter Plan of Treatment Not on file documented as of this encounter Visit Diagnoses Not on filedocumented in this encounter Care Teams Sketch Liner Relationship Specialty Start Date End Date Tg Melgar MD [address] [place] [address] PCP - General 10/06/07 04/10/18 documented as of this encounter
--- OUTSIDE RECORDS SUMMARY | 2024-08-16 21:38 | XMS_ITS | Encounter Summary ---
Author Organization [facility] Healthcare Address [facility] [place] [address] Care Team Providers Care Food Science Technician Name Role Phone Tyler Higgins MD Primary Care Provider [phone] No, Physician Primary Care Provider [phone] Reason for Visit * Reason Comments Contractions Encounter Details Date Type Department Care Team (Latest Contact Info) Description 11/10/2020 6:48 PM CDT - 11/12/2020 3:00 PM CDT Hospital Encounter [facility] [address] [place] [id number] Dunia Phillips MD [address] [address] Fernando Mitchell MD [address] [place] [address] DR GARY B [address] [address] Discharge Disposition: Discharge to home or self care Social History Tobacco Use Types Packs/Day Years Used Date Smoking Tobacco: Every Day Cigarettes Smokeless Tobacco: Never Alcohol Use Standard Drinks/Week Comments Never 0 (1 standard drink = 0.6 oz pur e alcohol) AUDIT-C Answer Date Recorded Q1: How often do you have a drink containing alc ohol? Never 11/10/2020 Average Number of Drinks Not on file 021 Frequency of Binge Drinking Not on file 08/2020 Comments No Sex and Gender Information Value Date Recorded Sex Assigned at Not on file Legal Sex Female 6:01 PM [employer] WORK[employer] Gender Identity Not on file Sexual Orientation Not on file documented as of this encounter Last Filed Vital Signs Vital Sign Reading Time Taken Comments Blood Pressure 124/70 11/12/2020 11:15 AM CDT Pulse 96 11/12/2020 11:15 AM CDT Temperature 35.9 ??C (96.7 ??F) 11/12/2020 11:15 AM C DT Respiratory Rate 18 11/12/2020 11:15 AM CDT Oxygen Saturation 96% 11/11/2020 4:06 PM CDT Inhaled Oxygen Concentration - - Weight - - Height - - Body Mass Index - - documented in this encounter Discharge Diagnoses Diagnosis Other mental disorders complicating childbirth - OTHER MENTAL DISORDERS COMPLICATING CHILDBIRTH Single live - SINGLE LIVE Smoking (tobacco) complicating childbirth - SMOKING (TOBACCO) COMPLICATING CHILDBIRTH Nicotine dependence, cigarettes, uncomplicated - NICOTINE DEPENDENCE, CIGARETTES, UNCOMPLICATED 38 weeks gestation of - 38 WEEKS GESTATION OF Major depressive disorder, single episode, unspecified - MAJOR DEPRESSIVE DISORDER, SINGLE EPISODE, UNSPECIFIED Anxiety disorder, unspecified - ANXIETY DISORDER, UNSPECIFIED documented in this encounter Medications at Time of Discharge ferrous sulfate 325 mg (65 mg of elemental iron) tabletIndication s:Iron Deficiency Anemia Take 1 tablet (325 mg total) by mouth daily with breakfast 30 tablet 11 11/12/2020 2 HYDROcodone-acet aminophen (NORCO) 5-325 mg per tabletIndication s:Pain Take 1 tablet by mouth every 4 (four) hours as needed for pain 20 tablet 11/12/2020 4 ibuprofen (ADVIL,MOTRIN) 600 mg tabletIndication s:Cramps Take 1 tablet (600 mg total) by mouth every 6 (six) hours as needed for pain 30 tablet 1 11/12/2020 4 documented as of this encounter Ordered Prescriptions Prescription Sig Dispense Quantity Refills Last Filled Start Date End Date ferrous sulfate 325 mg (65 mg of elemental iron) tabletIndications: Iron Deficiency Anemia Take 1 tablet (325 mg total) by mouth daily with breakfast 30 tablet 11 11/12/2020 2 ibuprofen (ADVIL,MOTRIN) 600 mg tabletIndications: Cramps Take 1 tablet (600 mg total) by mouth every 6 (six) hours as needed for pain 30 tablet 1 11/12/2020 4 HYDROcodone-acetam inophen (NORCO) 5-325 mg per tabletIndications: Pain Take 1 tablet by mouth every 4 (four) hours as needed for pain 20 tablet 11/12/2020 4 documented in this encounter Discharge Disposition Disposition Code Departure Means Destination Discharge to home or self care documented in this encounter Progress Notes * Fernando Mitchell MD - 11/12/2020 11:03 AM CDT Post day # 1 Status post S: feeling Ok, pain control adequate, good progress Bonding well with baby O: afebrile, Vitals stable, lochia appropriate Chest: good air movement Cv: RRR Abd: soft, NT, fundus firm Ext: (-) A/P Doing well, no big issues Plan discharge today documented in this encounter Nursing Notes * Evangelina Carpenter RN - 11/11/2020 7:33 AM CDT Spontaneous vaginal delivery of a viable male infant documented in this encounter Miscellaneous Notes * Plan of Care - Odalis Aguilera RN - 11/12/2020 3:32 PM CDT Problem: Lack of Knowledge: Goal: Verbalization of understanding the information provided will improve Outcome: Completed Problem: Coping: Goal: Ability to identify appropriate support needs for the childbearing process will improve Outcome: Completed Goal: Ability to verbilize concerns and feelings about labor and delivery improve Outcome: Completed Problem: Life Cycle: Goal: Ability to maintain clinical measurements within normal limits will improve Outcome: Completed Goal: Ability to make normal progression through stages of labor will improve Outcome: Completed Goal: Ability to effectively push during vaginal delivery will improve Outcome: Completed Problem: Role Relationship: Goal: Ability to demonstrate positive interaction with the child will improve Outcome: Completed Problem: Safety: Goal: Chance of risk for complications during labor and delivery will decrease Outcome: Completed Problem: Sensory: Goal: Relief or control of pain from uterine contractions will improve Outcome: Completed Problem: Health Behavior: Goal: Understanding of discharge needs will improve Outcome: Completed Goals: Clinical Goals for the Shift: VSS, pain control Summary: Vital signs stable for discharge. * Plan of Care - Heidy Wallace RN - 11/12/2020 4:41 AM CDT Goals: Clinical Goals for the Shift: VSS, adequate intake Summary: VSS, comfortable with pain medication. * L&D Delivery Note - Fernando Mitchell MD - 11/11/2020 7:51 AM CDT Delivery note Pre op dx: term IUP, active labor, SROM Post op dx: same Procedure: / mle with repair OB: Pieter Mitchell MD Anesth: epidural Ebl: 600cc Comp: none Findings: delivery of vigorous male from vertex presentation APGARs and weight pending Placenta intact with 3v cord Mom and baby doing well * Plan of Care - Brit Sosa RN - 11/11/2020 5:00 AM CDT Problem: Lack of Knowledge: Goal: Verbalization of understanding the information provided will improve Outcome: Progressing Problem: Coping: Goal: Ability to identify appropriate support needs for the childbearing process will improve Outcome: Progressing Goal: Ability to verbilize concerns and feelings about labor and delivery improve Outcome: Progressing Problem: Life Cycle: Goal: Ability to maintain clinical measurements within normal limits will improve Outcome: Progressing Goal: Ability to make normal progression through stages of labor will improve Outcome: Progressing Goal: Ability to effectively push during vaginal delivery will improve Outcome: Progressing Problem: Role Relationship: Goal: Ability to demonstrate positive interaction with the child will improve Outcome: Progressing Problem: Safety: Goal: Chance of risk for complications during labor and delivery will decrease Outcome: Progressing Problem: Sensory: Goal: Relief or control of pain from uterine contractions will improve Outcome: Progressing Goals: Clinical Goals for the Shift: Healthy mom and baby Summary: Pt admitted due to progression in labor. Pt comfortable with epidural. Last SVE . with a bulging bag of water. Dr. Mitchell notified. Bedside shift report given to day shift RN. Brit Sosa, RN documented in this encounter Plan of Treatment Not on file documented as of this encounter Procedures Procedure Name Priority Date/Time Associated Diagnosis Comments CBC WITHOUT DIFFERENTIAL Routine 11/12/2020 9:07 AM CDT DIFFERENTIAL AUTO STAT 11/10/2020 9:3 3 PM CDT CBC WITH AUTO DIFFERENTIAL STAT 11/10/2020 9:33 PM CDT ABO/RH STAT 11/10/2020 9:33 PM CDT ANTIBODY SCREEN STAT 11/10/2020 9:33 PM CDT TYPE AND SCREEN STAT 11/10/2020 9:33 PM CDT DRUG SCREEN, URINE L AND D WITH REFLEX CONFIRMATION STAT 11/10/2020 7:28 PM CDT URINALYSIS AND REFLEX TO MICROSCOPIC AND CULTURE STAT 11/10/2020 7:28 PM CDT URINALYSIS, MICROSCOPIC ONLY STAT 11/10/2020 7:28 PM CDT documented in this encounter Results * (ABNORMAL) CBC without differential (11/12/2020 9:07 AM CDT) WBC 12.6(H) 3.8 - 9.9 K/cumm [facility] ([place]) Hgb 6.5(L) 11.9 - 15.5 g/dL [facility] ([place]) Hct 21.0(L) 35.6 - 45.5 % [facility] ([place]) Plt 191 150 - 400 K/cumm [facility] ([place]) MPV 10.7 9.1 - 12.3 fL [facility] ([place]) RBC 2.41(L) 3.90 - 5.20 M/cumm [facility] ([place]) MCV 87.1 81.3 - 96.4 fL [facility] ([place]) MCH 27.0(L) 27.1 - 33.3 pg [facility] ([place]) MCHC 31.0(L) 32.3 - 35.7 g/dL [facility] ([place]) RDW CV 13.4 11.1 - 14.9 % [facility] ([place]) RDW SD 42.5 35.7 - 48.1 fL [facility] ([place]) NRBC abs 0.00 0.00 - 0.01 K/cumm [facility] ([place]) Blood specimen (specimen) 11/12/2020 9:07 AM CDT 11/12/2020 9:23 AM CDT us Fernando Mitchell MD LAB BLOOD ORDERABLES F inal Result [facility] ([place]) 1 [facility] Department [place] [address] * (ABNORMAL) Differential, auto (11/10/2020 9:33 PM CDT) Neutrophil abs 10.5(H) 1.7 - 6.5 K/cumm [facility] ([place]) Imm gran abs 0.1 0.0 - 0.1 K/cumm [facility] ([place]) Lymphocyte abs 2.2 0.8 - 3.3 K/cumm [facility] ([place]) Monocyte abs 0.7 0.2 - 0.8 K/cumm [facility] ([place]) Eosinophil abs 0.1 0.0 - 0.5 K/cumm [facility] ([place]) Basophil abs 0.1 0.0 - 0.1 K/cumm [facility] ([place]) Neutrophil pct 77.2 % [facility] ([place]) Comment: Interpretive Data Percent cell count reference ranges are not reported, since discordance with absolute values may lead to misinterpretation of CBC data. Current Interpretive Data was last revised on 2017. Imm gran pct 1.0 % [facility] ([place]) Comment: Interpretive Data Percent cell count reference ranges are not reported, since discordance with absolute values may lead to misinterpretation of CBC data. Current Interpretive Data was last revised on 2017. Lymphocyte pct 15.9 % [facility] ([place]) Comment: Interpretive Data Percent cell count reference ranges are not reported, since discordance with absolute values may lead to misinterpretation of CBC data. Current Interpretive Data was last revised on 2017. Monocyte pct 4.8 % [facility] ([place]) Comment: Interpretive Data Percent cell count reference ranges are not reported, since discordance with absolute values may lead to misinterpretation of CBC data. Current Interpretive Data was last revised on 2017. Eosinophil pct 0.7 % [facility] ([place]) Comment: Interpretive Data Percent cell count reference ranges are not reported, since discordance with absolute values may lead to misinterpretation of CBC data. Current Interpretive Data was last revised on 2017. Basophil pct 0.4 % [facility] ([place]) Comment: Interpretive Data Percent cell count reference ranges are not reported, since discordance with absolute values may lead to misinterpretation of CBC data. Current Interpretive Data was last revised on 2017. Blood specimen (specimen) 11/10/2020 9:33 PM CDT 11/10/2020 9:39 PM CDT us Fernando Mitchell MD LAB BLOOD ORDERABLES F inal Result [facility] ([place]) 1 [facility] Department of Laboratories [place], [place] [id number] * Antibody screen (11/10/2020 9:33 PM CDT) Doris, indirect, Gel Interpretation Negative ABSC [facility] ([place]) Blood specimen (specimen) 11/10/2020 9:33 PM CDT 11/10/2020 9:39 PM CDT Narrative [facility] ([place]) - 11/10/2020 10:19 PM CDT Has the patient had Daratumumab or Isatuximab in the past 6 months?->Unknown Fernando Mitchell MD LAB BLOOD BANK TEST OR DERABLES Final Result Performing Organization Address [facility] Co de Phone Number [facility] ([place]) [address] [facility] [place] [address] * ABO/Rh (11/10/2020 9:33 PM CDT) ABO/Rh AB Positive [facility] ([place]) Blood specimen (specimen) 11/10/2020 9:33 PM CDT 11/10/2020 9:39 PM CDT Narrative [facility] ([place]) - 11/10/2020 10:19 PM CDT Has the patient had Daratumumab or Isatuximab in the past 6 months?->Unknown Fernando Mitchell MD LAB BLOOD BANK TEST OR DERABLES Final Result Performing Organization Address [facility] de Phone Number [facility] ([place]) [address] [facility] [place] [address] * (ABNORMAL) CBC with auto differential (11/10/2020 9:33 PM CDT) WBC 13.6(H) 3.8 - 9.9 K/cumm [facility] ([place]) Hgb 9.2(L) 11.9 - 15.5 g/dL [facility] ([place]) Hct 28.7(L) 35.6 - 45.5 % [facility] ([place]) Plt 235 150 - 400 K/cumm [facility] ([place]) MPV 10.5 9.1 - 12.3 fL [facility] ([place]) RBC 3.38(L) 3.90 - 5.20 M/cumm [facility] ([place]) MCV 84.9 81.3 - 96.4 fL [facility] ([place]) MCH 27.2 27.1 - 33.3 pg [facility] ([place]) MCHC 32.1(L) 32.3 - 35.7 g/dL [facility] ([place]) RDW CV 13.2 11.1 - 14.9 % [facility] ([place]) RDW SD 40.1 35.7 - 48.1 fL [facility] ([place]) NRBC abs 0.00 0.00 - 0.01 K/cumm [facility] ([place]) Blood specimen (specimen) 11/10/2020 9:33 PM CDT 11/10/2020 9:39 PM CDT Fernando Mitchell MD LAB BLOOD ORDERABLES F inal Result Performing Organization Address [facility] de Phone Number [facility] ([place]) [address] [place] [address] [place] [address] * (ABNORMAL) Urinalysis, microscopic only (11/10/2020 7:28 PM CDT) WBC, ur 0-5 0 - 5 /HPF [facility] ([place]) RBC, ur 0-2 0 - 2 /HPF [facility] ([place]) Epithelial cells, squamous, ur 6-10(A) 0 - 5 /HPF [facility] ([place]) Mucous, ur Present(A) [facility] ([place]) Culture Reflex Comment Reflex conditions for urine culture (WBC >10) not met. [facility] ([place]) Urine, clean voided 11/10/2020 7:28 PM CDT 11/10/2020 7:33 PM CDT Fernando Mitchell MD LAB URINE ORDERABLES F inal Result Performing Organization Address [facility] Co de Phone Number [facility] ([place]) 1 [facility] [place] [address] * (ABNORMAL) Urinalysis reflex to microscopic and culture Urine, clean voided (11/10/2020 7:28 PM CDT) Color, ur Yellow Yellow [facility] ([place]) Clarity, ur Clear Clear [facility] ([place]) Specific gravity, ur 1.021 1.010 - 1.025 [facility] ([place]) pH, urine 6.5 [facility] ([place]) Protein, ur ql Trace Negative [facility] ([place]) Glucose, ur ql Negative Negative [facility] ([place]) Ketones, ur Negative Negative [facility] ([place]) Bilirubin, ur Negative Negative [facility] ([place]) Blood, ur Negative Negative [facility] ([place]) Urobilinogen, ur <2.0 <2.0 mg/dL [facility] ([place]) Nitrite, ur Negative Negative [facility] ([place]) Leukocyte esterase, ur 1+(A) Negative [facility] ([place]) UA reflex comment Reflex to microscopic UA will be performed. [facility] ([place]) Urine, clean voided 11/10/2020 7:28 PM CDT 11/10/2020 7:33 PM CDT Narrative [facility] ([place]) - 11/10/2020 7:37 PM CDT ?? Urine pH is affected by diet, medications, systemic acid-base disturbances, and renal tubular function. ??pH may affect urinary stone formation. ??For example, urine pH below 6.0 may help reduce the tendency for calcium phosphate stones and pH greater than 6.0 may reduce the tendency for uric acid stone formation. Source: [facility]. Last revised 08-22-2017 us Fernando Mitchell MD LAB MICROBIOLOGY - GEN ERAL ORDERABLES Final Result [facility] ([place]) 1 [facility] Department [place] [address] * Drug Screen, Urine L and D with Reflex Confirmation (11/10/2020 7:28 PM CDT) Amphetamine, ur Not Detected CutOff 500ng/mL [facility] ([place]) Comment: Interpretive Data - Amphetamines: ??Samples containing greater than 500 ng/mL d-methamphetamine ??or other cross-reacting amphetamine compounds are reported as positive. ??Amphetamine immunoassays are subject to significant false positive rates due to cross-reactivity of non-amphetamine drugs. Current Interpretive Data was last reviewed 2018. Barbiturates, ur Not Detected CutOff 200ng/mL [facility] ([place]) Comment: Interpretive Data - Barbiturates: ??Samples [...] Current Interpretive Data was last reviewed 2018. Fentanyl, Ur Not Detected Cutoff 1 ng/mL [facility] ([place]) Comment: Interpretive Data - Fentanyls: ??Samples containing greater than 1 ng/mL fentanyl or other cross-reacting fentanyl compounds are reported as detected. ??False positive and false negative results are possible. Current Interpretive Data was last reviewed 2019. Methadone, ur Not Detected CutOff 300ng/mL [facility] [...] 2018. Oxycodone, ur Not Detected CutOff 100ng/mL [facility] ([place]) Comment: Interpretive Data - Oxycodone: ??Samples containing greater than 100 ng/mL oxycodone or other cross-reacting compounds are reported as positive. ??False positive and false negative results are possible. ?? Current Interpretive Data was last reviewed 2018. Phencyclidine, ur Not Detected CutOff 25 ng/mL [facility] ([place]) Comment: Interpretive Data - Phencyclidine: ??Samples containing greater than 25 ng/mL phencyclidine or other cross-reacting compounds are reported as positive. ??False positive and false negative results are possible. ?? Current Interpretive Data was last reviewed 2018. Urine Creatinine 167 mg/dL [facility] ([place]) Comment: Interpretive Data Urine Creatinine: < 10 mg/dL is extremely dilute = or > 10 but < 20 mg/dL is dilute = or > 20 mg/dL is normal Current Interpretive Data was last revised on 2017. Urine 11/10/2020 7:28 PM CDT 11/10/2020 7:33 PM CDT Narrative [facility] ([place]) - 11/10/2020 7:56 PM CDT Drug of Abuse screening is performed by immunoassay for medical purposes only. ??This is not to be used for Pain Management purposes. ??If Detected, confirmation testing will be performed for Amphetamines, Barbiturates, Benzodiazepines, Cannabinoids, Cocaine, Fentanyl, Methadone, Opiates, Oxycodone or Phencyclidine. Fernando Mitchell MD LAB URINE ORDERABLES F inal Result [facility] ([place]) 1 [facility] Department [place] [address] documented in this encounter Visit Diagnoses Not on filedocumented in this encounter Administered Medications Inactive Administered Medications - up to 3 most recent administrations Medication Order MAR Action Action Date Dose Rate Site acetaminophen (TYLENOL) tablet 1,000 mg 1,000 mg, oral, Once, On Sat11/10/20 at 2115, For 1 dose Given 11/10/2020 9:17 PM CDT 1,000 mg benzocaine-menthoL (DERMOPLAST) 20-0.5 % topical spray 1 spray 1 spray, topical, As needed, other, perianal area for pain, Starting on Sat11/11/20 at 0852, Up to 6 times a day., Apply to affected area: perineum, Indications: Minor Skin Wound PainIndications:Minor Skin Wound Pain Given 11/11/2020 9:13 AM CDT 1 spray butorphanol (STADOL) 1 mg/mL injection - ADS Override Pull Starting on Sat11/10/20 at 2213, For 1 dose, Created by cabinet override butorphanol (STADOL) 1 mg/mL injection 1 mg 1 mg, intravenous, Administer over 1 Minutes, Every 2 hours PRN, 1st line for pain, Starting on Sat11/10/20 at 2210 Given 11/10/2020 10:16 PM CDT 1 mg fentaNYL-bupivacaine preservative free in 0.9% sodium chloride 2 mcg/mL- 0.1 % cassette (premix) Continuous Rate: 10 mL/hr, Patient Bolus Dose: 5 mL, Lockout Interval: 15 Minutes, epidural, Continuous, Starting on Sat11/10/20 at 2330, Until Sat11/11/20 at 0852, 100 mL, Stop epidural infusion after placental delivery and any indicated repair is complete., STAT New Syringe/Cartridge 11/11/2020 5:01 AM CDT 100 mL New Syringe/Cartridge 11/10/2020 11:00 PM CDT 100 mL ibuprofen (ADVIL,MOTRIN) tablet 600 mg 600 mg, oral, Every 6 hours PRN, other, cramping, Starting on Sat11/11/20 at 0852, Indications: CrampsIndications:Cramps Given 11/12/2020 4:27 AM CDT 600 mg Given 11/11/2020 5:08 PM CDT 600 mg Given 11/11/2020 9:14 AM CDT 600 mg Lactated Ringer's (LR) infusion 125 mL/hr, intravenous, Continuous, Starting on Franca 11/10/20 at 2115 New Bag 11/10/2020 9:30 PM CDT 999 mL/hr 999 mL/hr ondansetron (ZOFRAN) injection 4 mg 4 mg, intravenous, Administer over 2 Minutes, Every 6 hours PRN, nausea, vomiting, if not tolerating PO, Starting on Sat11/11/20 at 0852, Indications: Nausea and VomitingIndications:Nausea and Vomiting ondansetron ODT (ZOFRAN-ODT) disintegrating tablet 4 mg 4 mg, oral, Every 6 hours PRN, nausea, vomiting, Starting on Sat11/11/20 at 0852, Indications: Nausea and VomitingIndications:Nausea and Vomiting oxytocin 30 unit/500 mL (0.06 unit/mL) in sodium chloride 0.9% (premix) solution 95-334 milliunits/min (95-334 mL/hr), 0.06 units/mL, intravenous, Continuous, Starting on Sat11/11/20 at 0500, Until Sat11/11/20 at 0852, Indications: Hemorrhage Prevention, 334 miquel-units/minutes for 30 minutes then decrease infusion to 95 miquel-units/min for 3.5 hours., STATIndications: Hemorrhage Prevention New Bag 11/11/2020 7:12 AM CDT 333 milliunits/min 333 mL/hr vit-iron fum-folic ac tablet 1 tablet 1 tablet, oral, Daily, First dose on Sat11/11/20 at 1000, Begin when normal bowel activity resumes., Indications: Vitamin Deficiency PreventionIndications:Vitamin Deficiency Prevention Given 11/11/2020 9:13 AM CDT 1 tablet sertraline (ZOLOFT) tablet 50 mg 50 mg, oral, Daily, First dose on Sat11/11/20 at 1000 Given 11/11/2020 9:14 AM CDT 50 mg documented in this encounter Discontinued Medications Medication Sig Discontinue Reason Start Date End Da te sertraline (ZOLOFT) 50 mg tablet Take 50 mg by mouth daily Stop Taking at Discharge 11/12/2020 docusate sodium (COLACE) 100 mg capsuleIndications:con stipation,Stool Softener Take 1 capsule (100 mg total) by mouth 2 (two) times a day Stop Taking at Discharge 11/21/2018 11/12/2020 PNV cmb 29-[id number]-dha [id number] mg combo pack Take by mouth Stop Taking at Discharge 11/12/2020 documented as of this encounter Active and Recently Administered Medications Times are shown in CDT. Scheduled Medication Order 11/10/2020 11/11/2020 11/12/2020 acetaminophen (TYLENOL) tablet 1,000 mg (COMPLETED) 1,000 mg, oral, Once, On Sat11/10/20 at 2115, For 1 dose 2116 (Given - Provider: Brit Sosa, ROSIE) vit-iron fum-folic ac tablet 1 tablet 1 tablet, oral, Daily, First dose on Sat11/11/20 at 1000, Begin when normal bowel activity resumes., Indications: Vitamin Deficiency Prevention 0913 (Given - Provider: Evangelina Carpenter RN) 0900 (Due) sertraline (ZOLOFT) tablet 50 mg 50 mg, oral, Daily, First dose on Sat11/11/20 at 1000 0914 (Given - Provider: Evangelina Carpenter RN) 0900 (Due) Continuous Medication Order 11/10/2020 11/11/2020 11/12/2020 fentaNYL-bupivacaine preservative free in 0.9% sodium chloride 2 mcg/mL- 0.1 % cassette (premix) (CANCELED) Continuous Rate: 10 mL/hr, Patient Bolus Dose: 5 mL, Lockout Interval: 15 Minutes, epidural, Continuous, Starting on Franca 11/10/20 at 2330, Until Sat11/11/20 at 0852, 100 mL, Stop epidural infusion after placental delivery and any indicated repair is complete., STAT 2300 (New Syringe/Cartridge - Provider: Brit Sosa RN) 0501 (New Syringe/Cartridge - Provider: Brit Sosa RN)0800 (Stopped (Dual Sign) - Provider: Evangelina Carpenter RN) Lactated Ringer's (LR) infusion (CANCELED) 125 mL/hr, intravenous, Continuous, Starting on Franca 11/10/20 at 2115 2130 (New Bag - Provider: Brit Sosa RN) oxytocin 30 unit/500 mL (0.06 unit/mL) in sodium chloride 0.9% (premix) solution (CANCELED) 95-334 milliunits/min (95-334 mL/hr), 0.06 units/mL, intravenous, Continuous, Starting on Sat11/11/20 at 0500, Until Sat11/11/20 at 0852, Indications: Hemorrhage Prevention, 334 miquel-units/minutes for 30 minutes then decrease infusion to 95 miquel-units/min for 3.5 hours., STAT 0712 (New Bag - Provider: Evangelina Carpenter RN)0921 (Stopped - Provider: Evangelina Carpenter RN) PRN Medication Order 11/10/2020 11/11/2020 11/12/2020 benzocaine-menthoL (DERMOPLAST) 20-0.5 % topical spray 1 spray 1 spray, topical, As needed, other, perianal area for pain, Starting on Sat11/11/20 at 0852, Up to 6 times a day., Apply to affected area: perineum, Indications: Minor Skin Wound Pain 0913 (Given - Provider: Evangelina Carpenter RN) butorphanol (STADOL) 1 mg/mL injection 1 mg (CANCELED) 1 mg, intravenous, Administer over 1 Minutes, Every 2 hours PRN, 1st line for pain, Starting on Sat11/10/20 at 2210 2216 (Given - Provider: Brit Sosa RN) HYDROcodone-acetaminophen (NORCO) 5-325 mg per tablet 1 tablet 1 tablet, oral, Every 4 hours PRN, 1st line for pain, may give 2 tablets, Starting on Sat11/11/20 at 0852, May give two tablets if needed, Indications: Pain ibuprofen (ADVIL,MOTRIN) tablet 600 mg 600 mg, oral, Every 6 hours PRN, other, cramping, Starting on Sat11/11/20 at 0852, Indications: Cramps 0914 (Given - Provider: Evangelina Carpenter RN)1708 (Given - Provider: Misa Madrid, ROSIE) 0427 (Given - Provider: Heidy Wallace RN) jviidug-jcnqa-goemfui (MMR) 1,000-12,500 TCID50/0.5 mL vaccine 0.5 mL 0.5 mL, subcutaneous, During hospitalization, immunization, Starting on Sat11/11/20 at 0852, For 1 dose, If not rubella immune. Refrigerate, Indications: Ewvrzkw-Ozoef-Yydbqsp Vaccination ondansetron (ZOFRAN) injection 4 mg(Linked Group 1) 4 mg, intravenous, Administer over 2 Minutes, Every 6 hours PRN, nausea, vomiting, if not tolerating PO, Starting on Sat11/11/20 at 0852, Indications: Nausea and Vomiting ondansetron ODT (ZOFRAN-ODT) disintegrating tablet 4 mg(Linked Group 1) 4 mg, oral, Every 6 hours PRN, nausea, vomiting, Starting on Sat11/11/20 at 0852, Indications: Nausea and Vomiting Linked Groups Order Group 1: ondansetron ODT (ZOFRAN-ODT) disintegrating tablet 4 mgJump to med 4 mg, oral, Every 6 hours PRN, nausea, vomiting, Starting on Sat11/11/20 at 0852, Indications: Nausea and Vomiting Or ondansetron (ZOFRAN) injection 4 mgJump to med 4 mg, intravenous, Administer over 2 Minutes, Every 6 hours PRN, nausea, vomiting, if not tolerating PO, Starting on Sat11/11/20 at 0852, Indications: Nausea and Vomiting documented in this encounter Orders Medications Ordered That Doc ht Not Have Been Administered Count Last Ordered Date First Ordered Date carboprost (HEMABATE) 250 mc g/mL injection - ADS Override Pull 1 11/11/2020 HYDROcodone-acetaminophen (N ORCO) 5-325 mg per tablet 1 tablet 1 11/11/2020 xxotpwv-dcoae-nporhdv (MMR) 1,000-12,500 TCID50/0.5 mL vaccine 0.5 mL 1 11/11/2020 methylergonovine (METHERGINE ) 0.2 mg/mL (1 mL) injection - ADS Override Pull 1 11/11/2020 miSOPROStoL (CYTOTEC) 200 mc g tablet - ADS Override Pull 1 11/11/2020 ondansetron (ZOFRAN) injection 4 mg 2 11/1111/10/2020 ondansetron ODT (ZOFRAN-ODT) disintegrating tablet 4 mg 1 11/11/2020 oxytocin (PITOCIN) 10 unit/m L injection - ADS Override Pull 1 11/11/2020 diphenhydrAMINE (BENADRYL) injection 25 mg 1 11/10/2020 fentaNYL (SUBLIMAZE) 50 mcg/ mL preservative free injection - ADS Override Pull 1 11/10/2020 Lactated Ringer's (LR) bolus 1,000 mL 2 08/2020 nalbuphine (NUBAIN) injection 5 mg 1 2020 naloxone (NARCAN) 0.4 mg/mL injection 0.04-0.4 mg 1 11/10/2020 sodium chloride 0.9% flush 0.5-20 mL 2 08/2020 Nursing Count Last Ordered Date First Orde red Date DISCHARGE ACTIVITY 3 11/12/2020 DISCHARGE CALL PROVIDER 3 11/12/2020 DISCHARGE INSTRUCTIONS 8 11/12/2020 Transfer Count Last Ordered Date First Orde red Date TRANSFER PATIENT 2 11/11/2020 CORE MEASURES Count Last Ordered Date First Ord ered Date REASON FOR NO VTE PROPHYLAXIS AT ADMISSION 1 11/11/2020 documented in this encounter Care Teams Food Science Technician Relationship Specialty Start Date End Date Tyler Higgins MD [address] [place] [address] [place] [address] PCP - General 11/10/20 11/10/20 No, Physician PCP - General 11/11/20 01/16/24 documented as of this encounter
--- OUTSIDE RECORDS SUMMARY | 2024-08-16 21:38 | XMS_ITS | Encounter Summary ---
Author Organization [facility] Healthcare Address [address] [place] [address] Care Team Providers Care Station Cook Name Role Phone No, Physician Primary Care Provider [phone] Encounter Details Date Type Department Care Team (Late st Contact Info) Description 11/20/2023 Telephone [facility] [address] [place] [address] Lizy Templeton MD [address] [facility] [address] [address] Social History Tobacco Use Types Packs/Day [...] of Binge Drinking Not on file 08/2020 Personal Safety Answer Date Recorded Getting School Help Needed Not on file 09/21 Comments Unknown Sex and Gender Information Value Date Recorded Sex Assigned at Not on file 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 [place] tubal consents signed at time of appointment, however, pt needs to sign [place] tubal consents prior to surgery. Called patient and let her know to come in for quick appointment to sign forms as surgery cannot be scheduled with current form on file. Patient cancome or Th mornings when she is off work. Message sent to schedulers for appointment next week. All questions invited and answered on the phone. Lizy Templeton MD Obstetrics & Gynecology, PGY-2 documented in this encounter Plan of Treatment Not on file documented as of this encounter Visit Diagnoses Not on filedocumented in this encounter Care Teams Station Cook Relationship Specialty Start Date End Date No, Physician PCP - General 11/11/20 01/16/24 documented as of this encounter
--- OUTSIDE RECORDS SUMMARY | 2024-08-16 21:38 | XMS_ITS | Encounter Summary ---
Author Organization [facility] Healthcare Address [address] [place] [address] Care Team Providers Care Board Winder Name Role Phone No, Physician Primary Care Provider [phone] Reason for Visit * Reason Comments Consult Tubal ligation Encounter Details Date Type Department Care Team (Latest Contact Info) Description 12/03/2023 3:45 PM CDT Office Visit [facility] [address] [facility] 3rd Floor [address] [place] [address] Gilbert Chavarria MD [address] [address] Encounter for sterilization (Primary Dx) Social History Tobacco Use Types Packs/Day Years Used Date Smoking Tobacco: Every Day Cigarettes Smokeless Tobacco: Never Tobacco Cessation:Ready to Q uit: Not Asked; Counseling Given: Not Answered Alcohol Use Standard Drinks/Week Comments Never 0 (1 standard drink = 0.6 oz pur e alcohol) AUDIT-C Answer Date Recorded Q1: How often do you have a drink containing alc ohol? Patient declined 12/03/2023 Average Number of Drinks Not on file 024 Frequency of Binge Drinking Not on file 11/11 Hunger Vital Sign Answer Date Recorded Within the past 12 months, y ou worried that your food would run out before you got the money to buy more. Never true 12/03/19 24 Within the past 12 months, t he food you bought just didn't last and you didn't have money to get more. 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 Gender Identity Not on file Sexual Orientation Not on file documented as of this encounter Last Filed Vital Signs Vital Sign Reading Time Taken Comments Blood Pressure 122/82 12/03/2023 4:17 PM CDT Pulse 91 12/03/2023 4:17 PM CDT Temperature - - Respiratory Rate 16 12/03/2023 4:17 PM CDT Oxygen Saturation 98% 12/03/2023 4:17 PM CDT ra Inhaled Oxygen Concentration - - Weight 80.6 kg (177 lb 9.6 oz) 12/03/2023 4:17 P M CDT Height 154.9 cm (5' 1 ) 12/03/2023 4:17 PM CDT Body Mass Index 33.56 12/03/2023 4:17 PM CDT documented in this encounter Progress Notes * Gilbert Chavarria MD - 12/03/2023 3:45 PM CDT ARTIST MANNEQUIN COLORING NEW VISIT Subjective: Zenia Sparks is a 23 y.o. who presents with undesired future fertility. PMH significant for anxiety (on aripiprazole). Patient presents to [place] hyste[place] consent. She is scheduled for [facility] [place] this Saturday however signed the [place] hysterectomy consent previously. Due to her insurance she will have to sign [place] form anddelay surgery at least 30 days from consent. Nexplanon currently in place. Placed 11/2020. She is concerned about losing efficacy given it has been in place 3 years. OB Hx: 2x SVDs, uncomplicated pregnancies PSH: none Medications: aripiprazole Allergies: none ARTIST MANNEQUIN COLORING History Menses: irregular since nexplanon has been in place Pap History: reports she had normal pap last year, no hx of abnormal STD History: none Contraception: Nexplanon HRT: pre-menopausal OB History 2 Para 2 Term 2 AB Living 2 SAB IAB Ectopic Multiple 0 Live Births 2 Past Medical History: Diagnosis Date Depression Hypertension 11/2018 gestational HTN first No past surgical history on file. Current Outpatient Medications: HYDROcodone-acetaminophen (NORCO) 5-325 mg per tablet, Take 1 tablet by mouth every 4 (four) hours as needed for pain, Disp: 20 tablet, Rfl: 0 ibuprofen (ADVIL,MOTRIN) 600 mg tablet, Take 1 tablet (600 mg total) by mouth every 6 (six) hours as needed for pain, Disp: 30 tablet, Rfl: 1 No Known Allergies Family History Problem Relation Age of Onset Thyroid disease Mother Aneurysm Father Social History Tobacco Use Smoking status: Every Day Current packs/day: 0.25 Types: Cigarettes Smokeless tobacco: Never Substance and Sexual Activity Drug use: Not Currently Types: Marijuana, Alcohol Comment: denies smoking marijuana Sexual activity: Yes Partners: Male Alcohol Use: Unknown (12/03/2023) AUDIT-C Frequency of Alcohol Consumption: Patient declined Average Number of Drinks: Not on file Frequency of Binge Drinking: Not on file Objective: BP 122/82 Pulse 91 Resp 16 Ht 154.9 cm (5' 1 ) Wt 80.6 kg (177 lb 9.6 oz) LMP 4Comment: bleed for 1 day SpO2 98% Comment: ra BMI 33.56 kg/m?? Physical Exam General: NAD, mood appropriate Pulmonary: Non-labored Cardiovascular: Regular rate Abdomen: soft, non-tender, non-distended, without rebound or guarding Extremities: Warm and well perfused GENITAL EXAM: deferred Assessment/Plan: Zenia Sparks is a 23 y.o. with undesired future fertility. #undesired future fertility - pt desires permanent sterilization - previously counseled on risks of surgery as well as risk of regret as high as 20% under age 30 - discussed r/b/a to laparoscopic bilateral salpingectomy for sterilization, including LARCs as alternatives; risks including bleeding, infection, and risk of injury to nearby structures - [place] tubal papers signed 12/02 - Re-signed consents for exam under anesthesia with trainees, laparoscopic bilateral salpingectomy,removal of Nexplanon, any other indicated procedures - Message sent to ARTIST MANNEQUIN COLORING rn neurosurgical to re-schedule due to Medicaid waiting period - Discussed likely efficacy of Nexplanon for 5 years for contraception however if pt concerned can use additional barrier protection or abstain until surgery RTC post-op. Patient discussed with Dr. Rooney. Gilbert Chavarria MD Resident Physician, Obstetrics & Gynecology PGY-3 Cosigned by Lu Rooney MD at 12/08/2023 9:18 PM CDT Associated attestation - Lu Rooney MD - 12/08/2023 9:18 PM CDT I have personally reviewed with Dr. Chavarria the history, physical examination, laboratory studies and proposed management for Zenia Sparks. Together we formulated a clinical diagnosis for each problem and developed a plan for therapy during or immediately after her clinic visit. I agree with the recommended plan of care. documented in this encounter Plan of Treatment Not on file documented as of this encounter Visit Diagnoses Diagnosis Encounter for sterilization- Primary Sterilization documented in this encounter Care Teams Board Winder Relationship Specialty Start Date End Date No, Physician PCP - General 11/11/20 01/16/24 documented as of this encounter
--- OUTSIDE RECORDS SUMMARY | 2024-08-16 21:38 | XMS_ITS | Encounter Summary ---
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 * Preeclampsia (Discharge Care) ([place]) * at 35 to 38 Weeks (Discharge Care) ([place]) documented in this encounter Medications at Time of Discharge docusate sodium (COLACE) 100 mg capsuleIndication s:constipation,St ool Softener Take 1 capsule (100 mg total) by mouth 2 (two) times a day 30 capsule 1 11/21/2018 11/12/2020 HYDROcodone-aceta minophen (NORCO) 5-325 mg per tabletIndications :Pain Take 1 tablet by mouth every 4 (four) hours as needed for pain 30 tablet 11/21/2018 11/07/2020 ibuprofen (ADVIL,MOTRIN) 600 mg tabletIndications :Cramps Take 1 tablet (600 mg total) by mouth every 6 (six) hours as needed for pain 24 tablet 1 11/21/2018 11/07/2020 iron aspgly,ps-C-B12-F A-Ca-suc 150-60-25-1 cr-iq-dug-mg capsule Take by mouth 11/22/2018 nitrofurantoin monohydrate (MACROBID) 100 mg capsule Take 1 capsule (100 mg total) by mouth 2 (two) times a day for 7 days 14 capsule 11/13/2018 11/19/2018 sertraline (ZOLOFT) 50 mg tablet Take 50 mg by mouth daily 11/12/2020 documented as of this encounter Discharge Disposition Disposition Code Departure Means Destination Discharge to home or self care documented in this encounter Plan of Treatment Not on file documented as of this encounter Visit Diagnoses Not on filedocumented in this encounter Care Teams Process Maintenance Technician Relationship Specialty Start Date End Date No, Physician PCP - General 10/22/18 11/09/20 documented as of this encounter
--- OUTSIDE RECORDS SUMMARY | 2024-08-16 21:38 | XMS_ITS | Encounter Summary ---
Author Organization [facility] Healthcare Address [facility] [place] [address] Care Team Providers Care Front End Developer Designer Name Role Phone No, Physician Primary Care Provider [phone] Reason for Visit * Reason Comments Problem Sent over from [employer] for elevated blood pressures Encounter Details Date Type Department Care Team (Latest Contact Info) Description 11/19/2018 3:24 PM CDT - 11/22/2018 12:10 PM CDT Hospital Encounter [facility] 1 [place] [id number] Dunia Phillips MD [address] [place] [address] [place] [id number] Sathish Hastings MD [address] [place] [address] DR ABDIRAHMAN Wilson [address] [address] Fernando Mitchell MD [address] [facility] [address] ABDIRAHMAN Wilson [address] [address] Preeclampsia, third trimester (Primary Dx) Discharge Disposition: Discharge to home or self [...] Binge Drinking Not on file 10/10 Comments No Sex and Gender Information Value Date Recorded Sex Assigned at Not on file 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.] for pain 24 tablet 1 11/21/2018 11/07/2020 sertraline (ZOLOFT) 50 mg tablet Take 50 mg by mouth daily 11/12/2020 documented as of this encounter Ordered Prescriptions Prescription Sig Dispense Quantity Refills Last Filled Start Date End Date docusate sodium (COLACE) 100 mg capsuleIndications :constipation,Stoo l Softener Take 1 capsule (100 mg total) by mouth 2 (two) times a day 30 capsule 1 11/21/2018 ibuprofen (ADVIL,MOTRIN) 600 mg tabletIndications: Cramps Take 1 tablet (600 mg total) by mouth every 6 (six) hours as needed for pain 24 tablet 1 11/21/2018 1 HYDROcodone-acetam inophen (NORCO) 5-325 mg per tabletIndications: Pain Take 1 tablet by mouth every 4 (four) hours as needed for pain 30 tablet 11/21/2018 1 documented in this encounter Discharge Disposition Disposition Code Departure Means Destination Discharge to home or self care documented in this encounter Progress Notes * Fernando Mitchell MD - 11/21/2018 12:32 PM CDT Post day # 1 Status post with 4th degree S: feeling Ok, pain control adequate, good progress Bonding well with baby O: afebrile, Vitals stable, lochia appropriate Chest: good air movement Cv: RRR Abd: soft, NT, fundus firm Ext: (-) A/P Doing well, no big issues Plan discharge tomorrow documented in this encounter Nursing Notes * Thelma Blount RN - 11/22/2018 12:10 PM CDT Patient discharged ambulatory in stable condition 11/22/2018 Thelma Blount RN * Thelma Blount RN - 11/22/2018 11:45 AM CDT Discharge instructions given to patient; patient verbalized understanding 11/22/2018 Thelma Blount RN * Dimple Bhagat RN - 11/21/2018 6:15 AM CDT Pt resting when RN to bedside, pt request that RN come back later we are trying to rest * Joanne Barajas RN - 11/20/2018 8:51 PM CDT Hand off report given to Boni Herbert RN * Evangelina Carpenter RN - 11/20/2018 4:[address] Mitchell notified via telephone that patient has made no progress pushing thus far, feels as though cervix rim on left side and vagina have become increasingly swollen as well as caput for fetus. Patient crying in pain and throwing up. Anesthesia has been contacted for assessment of pain * Evangelina Carpenter RN - 11/20/2018 1:[address] Wilkins notified of pt's return of discomfort in abdomen/contractions as well as hip pain * Evangelina Carpenter RN - 11/20/2018 12:[address] Nolan at bedside to address patient's pain. * Evangelina Carpenter RN - 11/20/2018 12:[address] 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 Gave last documented SVE and Ctx pattern. Dr would like an updated SVE and a return message. 11/20/2018 6:43 AM Marilee Cardenas RN * Evangelina Carpenter RN - 11/20/2018 5:00 AM CDT Report received from Boni Turner RN documented in this encounter Miscellaneous Notes * Plan of Care - Thelma Blount RN - 11/22/2018 11:00 AM CDT Goals: Clinical Goals for the Shift: VSS, pain control Problem: Activity: Goal: Will verbalize the importance of balancing activity with adequate rest periods Outcome: Completed Problem: Lack of Knowledge: Goal: Will have increased knowledge of Care Outcome: Completed Problem: Coping: Goal: Ability to cope will improve Outcome: Completed Goal: Ability to identify and utilize available resources and services will improve Outcome: Completed Problem: Life Cycle: Goal: Risk for hemorrhage will decrease Outcome: Completed Goal: Chance of risk for complications during the period will decrease Outcome: Completed Problem: Nutritional: Goal: Dietary intake will improve Outcome: Completed Goal: Mother's verbalization of comfort with process will improve Outcome: Completed Problem: Role Relationship: Goal: Ability to interact appropriately with will improve Outcome: Completed Problem: Sensory: Goal: General experience of comfort will improve Outcome: Completed Problem: Health Behavior: Goal: Understanding of discharge needs will improve Outcome: Completed Summary: VSS, patient doing well and is stable for discharge 11/22/2018 Thelma Blount, ROSIE * Plan of Care - Aliyah Hoang RN - 11/22/2018 4:31 AM CDT Problem: Activity: Goal: Will verbalize the importance of balancing activity with adequate rest periods Outcome: Progressing Problem: Lack of Knowledge: Goal: Will have increased knowledge of Care Outcome: Progressing Problem: Coping: Goal: Ability to cope will improve Outcome: Progressing Goal: Ability to identify and utilize available resources and services will improve Outcome: Progressing Problem: Life Cycle: Goal: Risk for hemorrhage will decrease Outcome: Progressing Goal: Chance of risk for complications during the period will decrease Outcome: Progressing Problem: Nutritional: Goal: Dietary intake will improve Outcome: Progressing Goal: Mother's verbalization of comfort with process will improve Outcome: Progressing Problem: Role Relationship: Goal: Ability to interact appropriately with will improve Outcome: Progressing Problem: Sensory: Goal: General experience of comfort will improve Outcome: Progressing Problem: Health Behavior: Goal: Understanding of discharge needs will improve Outcome: Progressing Goals: Clinical Goals for the Shift: VSS, pain control Summary: VSS, pain well controlled * Plan of Care - Dimple Bhagat RN - 11/21/2018 5:07 PM CDT Goals: Clinical Goals for the Shift: VS stable, pain controlled Maintain Comfort and safety Summary: vss, pain controlled, ambulating in room, attempting to cervantes with baby, having difficult time with , spoke with nurse, Hyacinth, and feeling slightly more comfortable about feedings. Will continue to assist * Plan of Care - Joanne Barajas RN - 11/20/2018 8:50 PM CDT Goals: Clinical Goals for the Shift: tolerate pitocin induction. pain controlled Summary: Problem: Coping: Goal: Level of anxiety will decrease Outcome: Progressing Problem: Sensory: Goal: Pain level will decrease Outcome: Progressing * L&D Delivery Note - Fernando Mitchell MD - 11/20/2018 6:19 PM CDT Delivery note Pre op dx: term IUP, pre-eclampsia / induction Post op dx: same Procedure: / mLE with 4th degree extension and repair OB; Pieter Mitchell MD Anesth: epidural Ebl: 1000cc Comp; some post atony requiring massage. Findings: delivery of vigorous male from OA position APGARs 8/9, weight pending Placenta intact with 3v cord. 4th degree tear; approximately 3 cm of rectal mucosa involved. 4-o vicryl used to reaproximate rectal sub mucosa #3 2-0 vicryls were then used to repair the rectal sphincter and capsule with The standard slight overlap tecnique. 3-o chromic used to repair vagina and perineum in usual fashion. Mom and baby in good condition. * Plan of Care - April Turner RN - 11/20/2018 5:19 AM CDT Goals: Clinical Goals for the Shift: tolerate pitocin induction. pain controlled Summary: patient and fetus tolerating labor induction at this time. Pain medications effective for pain control. Problem: Lack of Knowledge: Goal: Knowledge of disease or condition and prescribed therapeutic regimen will improve Outcome: Progressing Problem: Coping: Goal: Level of anxiety will decrease Outcome: Progressing Problem: Life Cycle: Goal: Will achieve delivery and avoid or minimize maternal and complications Outcome: Progressing Problem: Sensory: Goal: Pain level will decrease Outcome: Progressing Problem: Lack of Knowledge: Goal: Knowledge of disease or condition and prescribed therapeutic regimen will improve Outcome: Progressing documented in this encounter Plan of Treatment Not on file documented as of this encounter Procedures Procedure Name Priority Date/Time Associated Diagnosis Comments DIFFERENTIAL AUTO Routine 11/21/2018 5:1 2 AM CDT CBC WITH AUTO DIFFERENTIAL Routine 11/21/2018 5:12 AM CDT PROTEIN, URINE, RANDOM STAT 9 5:23 PM CDT CREATININE, URINE, RANDOM STAT 11/19/2018 5:23 PM CDT EGFR STAT 11/19/2018 4:14 PM CDT DIFFERENTIAL AUTO STAT 11/19/2018 4:1 4 PM CDT CBC WITH AUTO DIFFERENTIAL STAT 11/19/2018 4:14 PM CDT ABO/RH Timed 11/19/2018 4:14 PM CDT ANTIBODY SCREEN Timed 11/19/2018 4:14 PM CDT TYPE AND SCREEN Timed 11/19/2018 4:14 PM CDT URIC ACID STAT 11/19/2018 4:14 PM CDT LACTATE DEHYDROGENASE STAT 11/19/2018 4:14 PM CDT COMPREHENSIVE METABOLIC PANEL STAT 11/19/2018 4:14 PM CDT documented in this encounter Results * (ABNORMAL) Differential, auto (11/21/2018 5:12 AM CDT) Neutrophil abs 14.2(H) 1.7 - 6.5 K/cumm [facility] ([place]) Imm gran abs 0.1 0.0 - 0.1 K/cumm [facility] ([place]) Lymphocyte abs 3.6(H) 0.8 - 3.3 K/cumm [facility] ([place]) Monocyte abs 1.8(H) 0.2 - 0.8 K/cumm [facility] ([place]) Eosinophil abs 0.1 0.0 - 0.5 K/cumm [facility] ([place]) Basophil abs 0.1 0.0 - 0.1 K/cumm [facility] ([place]) Neutrophil pct 71.7 % [facility] ([place]) Comment: Interpretive Data Percent cell count reference ranges are not reported, since discordance with absolute values may lead to misinterpretation of CBC data. Current Interpretive Data was last revised on 2017. Imm gran pct 0.7 % [facility] ([place]) Comment: Interpretive Data Percent cell count reference ranges are not reported, since discordance with absolute values may lead to misinterpretation of CBC data. Current Interpretive Data was last revised on 2017. Lymphocyte pct 18.1 % [facility] ([place]) Comment: Interpretive Data Percent cell count reference ranges are not reported, since discordance with absolute values may lead to misinterpretation of CBC data. Current Interpretive Data was last revised on 2017. Monocyte pct 8.8 % [facility] ([place]) Comment: Interpretive Data Percent cell count reference ranges are not reported, since discordance with absolute values may lead to misinterpretation of CBC data. Current Interpretive Data was last revised on 2017. Eosinophil pct 0.4 % [facility] ([place]) Comment: Interpretive Data Percent cell count reference ranges are not reported, since discordance with absolute values may lead to misinterpretation of CBC data. Current Interpretive Data was last revised on 2017. Basophil pct 0.3 % [facility] ([place]) Comment: Interpretive Data Percent cell count reference ranges are not reported, since discordance with absolute values may lead to misinterpretation of CBC data. Current Interpretive Data was last revised on 2017. Blood specimen (specimen) 11/21/2018 5:12 AM CDT 11/21/2018 5:20 AM CDT Narrative [facility] ([place]) - 11/21/2018 5:24 AM CDT us Fernando Mitchell MD LAB BLOOD ORDERABLES F inal Result [facility] ([place]) 1 [facility] [place] [address] * (ABNORMAL) CBC with auto differential (11/21/2018 5:12 AM CDT) WBC 19.8(H) 3.8 - 9.9 K/cumm [facility] ([place]) Hgb 7.2(L) 11.9 - 15.5 g/dL [facility] ([place]) Hct 21.3(L) 35.6 - 45.5 % [facility] ([place]) Plt 237 150 - 400 K/cumm [facility] ([place]) MPV 10.6 9.1 - 12.3 fL [facility] ([place]) RBC 2.47(L) 3.90 - 5.20 M/cumm [facility] ([place]) MCV 86.2 81.3 - 96.4 fL [facility] ([place]) MCH 29.1 27.1 - 33.3 pg [facility] ([place]) MCHC 33.8 32.3 - 35.7 g/dL [facility] ([place]) RDW CV 12.4 11.1 - 14.9 % [facility] ([place]) RDW SD 38.7 35.7 - 48.1 fL [facility] ([place]) NRBC abs 0.00 0.00 - 0.01 K/cumm [facility] ([place]) Blood specimen (specimen) 11/21/2018 5:12 AM CDT 11/21/2018 5:20 AM CDT Narrative [facility] ([place]) - 11/21/2018 5:24 AM CDT us Fernando Mitchell MD LAB BLOOD ORDERABLES F inal Result [facility] ([place]) 1 [facility] [place] [place] [address] * Protein, urine, random (11/19/2018 5:23 PM CDT) Protein, ur, quant 19 mg/dL [facility] ([place]) Urine 11/19/2018 5:23 PM CDT 11/19/2018 5:32 PM CDT Narrative [facility] ([place]) - 11/19/2018 5:46 PM CDT No normal range us Sathish Hastings MD LAB URINE ORDERABLES F inal Result [facility] ([place]) 1 [facility] [place] [address] * Creatinine, urine, random (11/19/2018 5:23 PM CDT) Creatinine, ur 88.2 mg/dL [facility] ([place]) Urine 11/19/2018 5:23 PM CDT 11/19/2018 5:32 PM CDT Narrative [facility] ([place]) - 11/19/2018 5:46 PM CDT Sathish Hastings MD LAB URINE ORDERABLES F inal Result Performing Organization Address City/[facility]/ZIP Co de Phone Number [facility] ([place]) 1 [facility] [place] [place] [address] * Antibody screen (11/19/2018 4:14 PM CDT) Doris, indirect, Gel Interpretation Negative ABSC [facility] ([place]) Blood specimen (specimen) 11/19/2018 4:14 PM CDT 11/19/2018 6:11 PM CDT Narrative [facility] ([place]) - 11/19/2018 6:48 PM CDT Has the patient had Daratumumab (Darzalex) in the past 6 months?->Unknown Sathish Hastings MD LAB BLOOD BANK TEST OR DERABLES Final Result Performing Organization Address [facility] de Phone Number [facility] ([place]) 1 [facility] [employer] [address] * ABO/Rh (11/19/2018 4:14 PM CDT) ABO/Rh AB Positive [facility] ([place]) Blood specimen (specimen) 11/19/2018 4:14 PM CDT 11/19/2018 6:11 PM CDT Narrative [facility] ([place]) - 11/19/2018 6:48 PM CDT Has the patient had Daratumumab (Darzalex) in the past 6 months?->Unknown Sathish Hastings MD LAB BLOOD BANK TEST OR DERABLES Final Result Performing Organization Address City/[facility]/ZIP Co de Phone Number [facility] ([place]) 1 [facility] [place] [place] [address] * eGFR (11/19/2018 4:14 PM CDT) [facility] eGFR 131 mL/min/1.7 3 m2 [facility] ([place]) Comment: Interpretive Data Reference Interval Normal ?>/= 90 mL/min/1.73m2 Mildly decreased* ? 60 - 89 mL/min/1.73m2 Mildly to moderately decreased ?45 - 59 mL/min/1.73m2 Moderately to severely decreased ??30 - 44 mL/min/1.73m2 Severely decreased ?15 - 29 mL/min/1.73m2 Kidney Failure ?< 15 ??mL/min/1.73m2 *Relative to young adult level If -Ethiopian multiply value by 1.16. Estimated glomerular filtration rate is determined by the CKD-EPI equation recommended by the National Kidney Foundation (KDIGO 2012 Clinical Practice Guideline for the Evaluation and Management of Chronic Kidney Disease. Kidney Intnl Suppl Aug 2012;3:1). The CKD-EPI equation should not be used for patients with unstable renal function and has not been validated in children and those over 70. Current interpretive data was last reviewed 2016. Blood specimen (specimen) 11/19/2018 4:14 PM CDT 11/19/2018 4:17 PM CDT Narrative [facility] ([place]) - 11/19/2018 4:39 PM CDT us Dunia Phillips MD LAB BLOOD ORDERABLES Fin al Result [facility] ([place]) 1 [facility] [place] [address] * (ABNORMAL) Differential, auto (11/19/2018 4:14 PM CDT) Neutrophil abs 11.0(H) 1.7 - 6.5 K/cumm [facility] ([place]) Imm gran abs 0.2(H) 0.0 - 0.1 K/cumm [facility] ([place]) Lymphocyte abs 2.2 0.8 - 3.3 K/cumm [facility] ([place]) Monocyte abs 1.0(H) 0.2 - 0.8 K/cumm [facility] ([place]) Eosinophil abs 0.2 0.0 - 0.5 K/cumm [facility] ([place]) Basophil abs 0.0 0.0 - 0.1 K/cumm [facility] ([place]) Neutrophil pct 75.7 % [facility] ([place]) Comment: Interpretive Data Percent cell count reference ranges are not reported, since discordance with absolute values may lead to misinterpretation of CBC data. Current Interpretive Data was last revised on 2017. Imm gran pct 1.1 % [facility] ([place]) Comment: Interpretive Data Percent cell count reference ranges are not reported, since discordance with absolute values may lead to misinterpretation of CBC data. Current Interpretive Data was last revised on 2017. Lymphocyte pct 15.3 % [facility] ([place]) Comment: Interpretive Data Percent cell count reference ranges are not reported, since discordance with absolute values may lead to misinterpretation of CBC data. Current Interpretive Data was last revised on 2017. Monocyte pct 6.5 % [facility] ([place]) Comment: Interpretive Data Percent cell count reference ranges are not reported, since discordance with absolute values may lead to misinterpretation of CBC data. Current Interpretive Data was last revised on 2017. Eosinophil pct 1.1 % [facility] ([place]) Comment: Interpretive Data Percent cell count reference ranges are not reported, since discordance with absolute values may lead to misinterpretation of CBC data. Current Interpretive Data was last revised on 2017. Basophil pct 0.3 % [facility] ([place]) Comment: Interpretive Data Percent cell count reference ranges are not reported, since discordance with absolute values may lead to misinterpretation of CBC data. Current Interpretive Data was last revised on 2017. Blood specimen (specimen) 11/19/2018 4:14 PM CDT 11/19/2018 4:17 PM CDT Narrative [facility] ([place]) - 11/19/2018 4:19 PM CDT us Dunia Phillips MD LAB BLOOD ORDERABLES Fin al Result [facility] ([place]) 1 [facility] [employer] [address] * Lactate dehydrogenase (LD) (11/19/2018 4:14 PM CDT) Lactate dehydrogenase (LDH) 138 100 - 250 Units/L [facility] ([place]) Blood specimen (specimen) 11/19/2018 4:14 PM CDT 11/19/2018 4:17 PM CDT Narrative [facility] ([place]) - 11/19/2018 4:39 PM CDT us Dunia Phillips MD LAB BLOOD ORDERABLES Fin al Result Performing Organization Address City/[facility]/ZIP Co de Phone Number [facility] ([place]) [address] [place] [address] [employer] [address] * Uric acid (11/19/2018 4:14 PM CDT) Uric acid 5.1 2.5 - 7.0 mg/dL [facility] ([place]) Blood specimen (specimen) 11/19/2018 4:14 PM CDT 11/19/2018 4:17 PM CDT Narrative [facility] ([place]) - 11/19/2018 4:39 PM CDT us Dunia Phillips MD LAB BLOOD ORDERABLES Fin al Result [facility] ([place]) 1 [facility] [place] [address] * (ABNORMAL) Comprehensive metabolic panel (11/19/2018 4:14 PM CDT) Sodium 135 135 - 145 mmol/L [facility] ([place]) Potassium, pl 3.7 3.3 - 4.9 mmol/L [facility] ([place]) Chloride 103 97 - 110 mmol/L [facility] ([place]) CO2 20(L) 22 - 32 mmol/L [facility] ([place]) Anion gap 13 2 - 15 mmol/L [facility] ([place]) BUN 5(L) 8 - 25 mg/dL [facility] ([place]) Creatinine 0.61 0.60 - 1.10 mg/dL [facility] ([place]) Glucose 100 70 - 199 mg/dL [facility] ([place]) Comment: Interpretive Data Fasting glucose >/= 126 mg/dl is diagnostic for diabetes. ?? Fasting is defined as no caloric intake for at least 8 hours. Fasting glucose between 100 mg/dl to 125 mg/dl is diagnostic of prediabetes. In a patient with classic symptoms of hyperglycemia or hyperglycemic crisis, a random glucose >/= 200 mg/dl is diagnostic for diabetes. In the absence of unequivocal hyperglycemia, results should be confirmed by repeat testing. The classification and Diagnosis of Diabetes Diabetes Care 2017;40 (Suppl. 1):S11. Current interpretive data was last revised 2017. Calcium 8.7 8.5 - 10.3 mg/dL [facility] ([place]) Bilirubin, total <0.2 0.1 - 1.2 mg/dL [facility] ([place]) Protein, pl 6.4(L) 6.5 - 8.5 g/dL [facility] ([place]) Albumin 3.1(L) 3.5 - 5.0 g/dL [facility] ([place]) Alk phos 147 70 - 260 Units/L [facility] ([place]) ALT 9 7 - 45 Units/L [facility] ([place]) AST 14 10 - 45 Units/L [facility] ([place]) Blood specimen (specimen) 11/19/2018 4:14 PM CDT 11/19/2018 4:17 PM CDT Narrative [facility] ([place]) - 11/19/2018 4:39 PM CDT us Dunia Phillips MD LAB BLOOD ORDERABLES Fin al Result [facility] ([place]) 1 [facility] [place] [address] * (ABNORMAL) CBC with auto differential (11/19/2018 4:14 PM CDT) WBC 14.5(H) 3.8 - 9.9 K/cumm [facility] ([place]) Hgb 9.3(L) 11.9 - 15.5 g/dL [facility] ([place]) Hct 27.3(L) 35.6 - 45.5 % [facility] ([place]) Plt 266 150 - 400 K/cumm [facility] ([place]) MPV 10.2 9.1 - 12.3 fL [facility] ([place]) RBC 3.17(L) 3.90 - 5.20 M/cumm [facility] ([place]) MCV 86.1 81.3 - 96.4 fL [facility] ([place]) MCH 29.3 27.1 - 33.3 pg [facility] ([place]) MCHC 34.1 32.3 - 35.7 g/dL [facility] ([place]) RDW CV 12.3 11.1 - 14.9 % [facility] ([place]) RDW SD 39.0 35.7 - 48.1 fL [facility] ([place]) NRBC abs 0.00 0.00 - 0.01 K/cumm [facility] ([place]) Blood specimen (specimen) 11/19/2018 4:14 PM CDT 11/19/2018 4:17 PM CDT Narrative [facility] ([place]) - 11/19/2018 4:19 PM CDT us Dunia Phillips MD LAB BLOOD ORDERABLES Pravin foster Result [facility] ([place]) 1 [facility] [place] [address] documented in this encounter Visit Diagnoses Diagnosis Preeclampsia, third trimester- Primary documented in this encounter Administered Medications Inactive Administered Medications - up to 3 most recent administrations Medication Order MAR Action Action Date Dose Rate Site benzocaine-menthol (DERMOPLAST) 20-0.5 % topical spray 1 spray 1 spray, topical, As needed, other, perianal area for pain, Starting on Sat11/20/18 at 1844, Up to 6 times a day., Apply to affected area: perineum, Indications: Minor Skin Wound PainIndications:Minor Skin Wound Pain Given 11/20/2018 7:45 PM CDT 1 spray butorphanol (STADOL) 2 mg/mL injection 1 mg 1 mg, intravenous, Administer over 1 Minutes, Every 2 hours PRN, 1st line for pain, Starting on Sat11/19/18 at 1749, L&D Pre-Delivery, Indications: Labor PainIndications:Labor Pain Given 11/20/2018 8:13 AM CDT 1 mg Given 11/20/2018 5:44 AM CDT 1 mg Given 11/20/2018 3:25 AM CDT 1 mg calcium carbonate (TUMS) 500 mg calcium (200 mg of elemental calcium) chewable tablet - ADS Override Pull Starting on Sat11/20/18 at 1323, For 1 dose, Created by cabinet override calcium carbonate (TUMS) chewable tablet 500 mg 500 mg, oral, Once, On Sat11/20/18 at 1400, For 1 dose Given 11/20/2018 1:33 PM CDT 500 mg diphenhydrAMINE (BENADRYL) injection 25 mg 25 mg, intravenous, Administer over 2 Minutes, Every 6 hours PRN, sleep, Starting on Sat11/19/18 at 2307 Given 11/19/2018 11:22 PM CDT 25 mg docusate sodium (COLACE) capsule 100 mg 100 mg, oral, 2 times daily, First dose on Sat11/20/18 at 2100, Hold if diarrhea., Indications: constipation, Stool SoftenerIndications:constipation,Stool Softener Given 11/22/2018 9:24 AM CDT 100 mg Given 11/21/2018 9:51 PM CDT 100 mg Given 11/21/2018 8:52 AM CDT 100 mg fentaNYL-bupivacaine preservative free in 0.9% sodium chloride 2 mcg/mL- 0.1 % casette (premix) Continuous Rate: 10 mL/hr, Patient Bolus Dose: 5 mL, Lockout Interval: 15 Minutes, epidural, Continuous, Starting on Franca 11/20/18 at 1015, Until Franca 11/20/18 at 1844, 100 mL, Stop epidural infusion after placental delivery and any indicted repair is complete., Routine New Syringe/Cartridge 11/20/2018 2:44 PM CDT 100 mL New Syringe/Cartridge 11/20/2018 9:51 AM CDT 100 mL New Bag 11/20/2018 9:44 AM CDT 10 mL/hr 10 mL/hr HYDROcodone-acetaminophen (NORCO) 5-325 mg per tablet 1 tablet 1 tablet, oral, Every 4 hours PRN, 1st line for pain, may give 2 tablets, Starting on Franca 11/20/18 at 1844, May give two tablets if needed, Indications: PainIndications:Pain Given 11/21/2018 12:11 AM CDT 1 tablet ibuprofen (ADVIL,MOTRIN) tablet 600 mg 600 mg, oral, Every 6 hours PRN, other, cramping, Starting on Franca 11/20/18 at 1844, Indications: CrampsIndications:Cramps Given 11/22/2018 9:24 AM CDT 600 mg Given 11/22/2018 3:21 AM CDT 600 mg Given 11/21/2018 7:22 PM CDT 600 mg Lactated Ringer's (LR) infusion 125 mL/hr, intravenous, Continuous, Starting on Sat11/19/18 at 1830, L&D Pre-Delivery New Bag 11/20/2018 10:04 AM CDT 125 mL/hr 125 mL/hr Rate/Dose Change 11/20/2018 9:15 AM CDT 999 mL/hr 999 mL/ hr New Bag 11/20/2018 3:25 AM CDT 125 mL/hr 125 mL/hr ondansetron (ZOFRAN) injection 4 mg 4 mg, intravenous, Administer over 2 Minutes, Every 6 hours PRN, nausea, vomiting, Starting on Sat11/19/18 at 1746, L&D Pre-Delivery, Indications: Nausea and VomitingIndications:Nausea and Vomiting Given 11/20/2018 2:54 PM CDT 4 mg ondansetron (ZOFRAN) injection 4 mg 4 mg, intravenous, Administer over 2 Minutes, Every 6 hours PRN, nausea, vomiting, if not tolerating PO, Starting on Franca 11/20/18 at 1844, Indications: Nausea and VomitingIndications:Nausea and Vomiting ondansetron ODT (ZOFRAN-ODT) disintegrating tablet 4 mg 4 mg, oral, Every 6 hours PRN, nausea, vomiting, Starting on Franca 11/20/18 at 1844, Indications: Nausea and VomitingIndications:Nausea and Vomiting oxytocin 30 unit/500 mL (0.06 unit/mL) in sodium chloride 0.9% (premix) solution 0.5-30 milliunits/min (0.5-30 mL/hr), 0.06 units/mL, intravenous, Titrated, Starting on Sat11/19/18 at 1830, Until Sat11/20/18 at 1844, L&D Pre-Delivery, Indications: Induction of Labor, Start at 2 miquel-units/min and increase by 2 miquel-units/minutes every 30 minutes until contraction frequency is every 2-3 minutes. Discontinue for distress or uterine hyperstimulation., RoutineIndications:Inducti on of Labor New Bag 11/20/2018 6:39 PM CDT 333 milliunits/min 333 mL/hr Left Forearm Rate/Dose Change 11/20/2018 6:05 PM CDT 333 milliunits/min 333 mL/hr Rate/Dose Change 11/20/2018 5:42 PM CDT 16 milliunits/min 16 mL/hr vit-iron fum-folic ac tablet 1 tablet 1 tablet, oral, Daily, First dose on Sat11/20/18 at 1915, Begin when normal bowel activity resumes., Indications: Vitamin Deficiency PreventionIndications:Vitamin Deficiency Prevention Given 11/22/2018 9:24 AM CDT 1 tablet Given 11/21/2018 8:52 AM CDT 1 tablet Given 11/20/2018 7:44 PM CDT 1 tablet documented in this encounter Discontinued Medications Medication Sig Discontinue Reason Start Date End Da te nitrofurantoin monohydrate (MACROBID) 100 mg capsule Take 1 capsule (100 mg total) by mouth 2 (two) times a day for 7 days Therapy completed 11/13/2018 11/19/2018 iron aspgly,[id number] 150-60-25-1 kq-bn-ppd-mg capsule Take by mouth Stop Taking at Discharge 11/22/2018 documented as of this encounter Active and Recently Administered Medications Times are shown in CDT. Scheduled Medication Order 11/20/2018 11/21/2018 11/22/2018 calcium carbonate (TUMS) chewable tablet 500 mg (COMPLETED) 500 mg, oral, Once, On Franca 11/20/18 at 1400, For 1 dose 1333 (Given - Provider: Evangelina Carpenter, ROSIE) docusate sodium (COLACE) capsule 100 mg 100 mg, oral, 2 times daily, First dose on Franca 11/20/18 at 2100, Hold if diarrhea., Indications: constipation, Stool Softener 1943 (Given - Provider: Joanne Barajas RN) 851 (Given - Provider: Dimlpe Bhagat RN)2150 (Given - Provider: Aliyah Hoang RN) 923 (Given - Provider: Thelma Blount, ROSIE) vit-iron fum-folic ac tablet 1 tablet 1 tablet, oral, Daily, First dose on Franca 11/20/18 at 1915, Begin when normal bowel activity resumes., Indications: Vitamin Deficiency Prevention 1943 (Given - Provider: Joanne Barajas RN) 851 (Given - Provider: Dimple Bhagat, ROSIE) 923 (Given - Provider: Thelma Blount, ROSIE) Continuous Medication Order 11/20/2018 11/21/2018 11/22/2018 fentaNYL-bupivacaine preservative free in 0.9% sodium chloride 2 mcg/mL- 0.1 % casette (premix) (CANCELED) Continuous Rate: 10 mL/hr, Patient Bolus Dose: 5 mL, Lockout Interval: 15 Minutes, epidural, Continuous, Starting on Franca 11/20/18 at 1015, Until Franca 11/20/18 at 1844, 100 mL, Stop epidural infusion after placental delivery and any indicted repair is complete., Routine 0944 (New Bag - Provider: Ellie Ott MD PhD)0951 (New Syringe/Cartridge - Provider: Evangelina Carpenter, ROSIE)1444 (New Syringe/Cartridge - Provider: Evangelina Carpenter, ROSIE) Lactated Ringer's (LR) infusion (CANCELED) 125 mL/hr, intravenous, Continuous, Starting on Sat11/19/18 at 1830, L&D Pre-Delivery 0325 (New Bag - Provider: April Turner RN)0915 (Rate/Dose Change - Provider: Evangelina Carpenter RN)1004 (New Bag - Provider: Evangelina Carpenter RN) oxytocin 30 unit/500 mL (0.06 unit/mL) in sodium chloride 0.9% (premix) solution (CANCELED) 0.5-30 milliunits/min (0.5-30 mL/hr), 0.06 units/mL, intravenous, Titrated, Starting on Sat11/19/18 at 1830, Until Franca 11/20/18 at 1844, L&D Pre-Delivery, Indications: Induction of Labor, Start at 2 miquel-units/min and increase by 2 miquel-units/minutes every 30 minutes until contraction frequency is every 2-3 minutes. Discontinue for distress or uterine hyperstimulation., Routine 0000 (Rate/Dose Change - Provider: April Turner RN)0356 (Rate/Dose Change - Provider: April Turner RN)0430 (Rate/Dose Change - Provider: April Turner RN)0500 (Rate/Dose Change - Provider: April Turner RN)0840 (Rate/Dose Change - Provider: Evangelina Carpenter RN)1605 (Rate/Dose Change - Provider: Evangelina Carpenter RN)1742 (Rate/Dose Change - Provider: Joanne Barajas RN)1805 (Rate/Dose Change - Provider: Joanne Barajas RN)1839 (New Bag - Provider: Joanne Barajas RN) PRN Medication Order 11/20/2018 11/21/2018 11/22/2018 benzocaine-menthol (DERMOPLAST) 20-0.5 % topical spray 1 spray 1 spray, topical, As needed, other, perianal area for pain, Starting on Sat11/20/18 at 1844, Up to 6 times a day., Apply to affected area: perineum, Indications: Minor Skin Wound Pain 1944 (Given - Provider: Joanne Barajas RN) butorphanol (STADOL) 2 mg/mL injection 1 mg (CANCELED) 1 mg, intravenous, Administer over 1 Minutes, Every 2 hours PRN, 1st line for pain, Starting on Sat11/19/18 at 1749, L&D Pre-Delivery, Indications: Labor Pain 0325 (Given - Provider: April Turner, RN)0544 (Given - Provider: Evangelina Carpenter, ROSIE)0813 (Given - Provider: Evangelina Carpenter, ROSIE) HYDROcodone-acetaminophen (NORCO) 5-325 mg per tablet 1 tablet 1 tablet, oral, Every 4 hours PRN, 1st line for pain, may give 2 tablets, Starting on Franca 11/20/18 at 1844, May give two tablets if needed, Indications: Pain 0011 (Given - Provider: Karlene Herbert, ROSIE) ibuprofen (ADVIL,MOTRIN) tablet 600 mg 600 mg, oral, Every 6 hours PRN, other, cramping, Starting on Franca 11/20/18 at 1844, Indications: Cramps 1944 (Given - Provider: Joanne Barajas RN) 0313 (Given - Provider: Karlene Herbert, ROSIE)0852 (Given - Provider: Dimple Bhagat, ROSIE)1922 (Given - Provider: Aliyah Hoang, ROSIE) 0321 (Given - Provider: Aliyah Hoang, ROSIE)0924 (Given - Provider: Thelma Blount, ROSIE) ondansetron (ZOFRAN) injection 4 mg (CANCELED) 4 mg, intravenous, Administer over 2 Minutes, Every 6 hours PRN, nausea, vomiting, Starting on Sat11/19/18 at 1746, L&D Pre-Delivery, Indications: Nausea and Vomiting 1039 (Due)1454 (Given - Provider: Evangelina Carpenter, ROSIE) ondansetron (ZOFRAN) injection 4 mg(Linked Group 1) 4 mg, intravenous, Administer over 2 Minutes, Every 6 hours PRN, nausea, vomiting, if not tolerating PO, Starting on Franca 11/20/18 at 1844, Indications: Nausea and Vomiting ondansetron ODT (ZOFRAN-ODT) disintegrating tablet 4 mg(Linked Group 1) 4 mg, oral, Every 6 hours PRN, nausea, vomiting, Starting on Franca 11/20/18 at 1844, Indications: Nausea and Vomiting Linked Groups Order Group 1: ondansetron ODT (ZOFRAN-ODT) disintegrating tablet 4 mgJump to med 4 mg, oral, Every 6 hours PRN, nausea, vomiting, Starting on Franca 11/20/18 at 1844, Indications: Nausea and Vomiting Or ondansetron (ZOFRAN) injection 4 mgJump to med 4 mg, intravenous, Administer over 2 Minutes, Every 6 hours PRN, nausea, vomiting, if not tolerating PO, Starting on Franca 11/20/18 at 1844, Indications: Nausea and Vomiting documented in this encounter Orders Medications Ordered That Doc ht Not Have Been Administered Count Last Ordered Date First Ordered Date bupivacaine (MARCAINE) 0.25 % (2.5 mg/mL) preservative free injection - ADS Override Pull 1 11/20/2018 fentaNYL (SUBLIMAZE) 50 mcg/ mL preservative free injection - ADS Override Pull 11/20/2018 fentaNYL-bupivacaine preserv ative free in 0.9% sodium chloride 2 mcg/mL- 0.1 % casette (premix) - ADS Override Pull 11/20/2018 Lactated Ringer's (LR) bolus 1,000 mL 06/2019 lidocaine PF (XYLOCAINE) 10 mg/mL (1 %) preservative free injection - ADS Override Pull 11/20/2018 ltnfjap-cewjx-cqtafba (MMR) 1,000-12,500 TCID50/0.5 mL vaccine 0.5 mL 11/20/2018 naloxone (NARCAN) 0.4 mg/mL injection 0.04-0.4 mg 11/20/2018 ondansetron (ZOFRAN) injection 4 mg 11/20 ondansetron ODT (ZOFRAN-ODT) disintegrating tablet 4 mg 11/20/2018 oxytocin 30 unit/500 mL (0.0 6 unit/mL) in sodium chloride 0.9% (premix) solution 11/20/2018 Rho(D) immune globulin (Hype rRHO S/D, RhoGAM) injection 300 mcg 11/20/2018 sodium chloride 0.9% flush 0.5-20 mL 11/1011/19/2018 lidocaine PF (XYLOCAINE) 10 mg/mL (1 %) preservative free injection 1-30 mL 1 11/19/2018 sodium chloride 0.9% bolus 500 mL 1 019 Nursing Count Last Ordered Date First Orde red Date DISCHARGE ACTIVITY 3 11/21/2018 DISCHARGE CALL PROVIDER 3 11/21/2018 DISCHARGE INSTRUCTIONS 9 11/21/2018 Admission Count Last Ordered Date First Orde red Date ASSIGN PATIENT STATUS 1 11/19/2018 Transfer Count Last Ordered Date First Orde red Date TRANSFER PATIENT 3 11/20/2018 CORE MEASURES Count Last Ordered Date First Ord ered Date REASON FOR NO VTE PROPHYLAXIS AT ADMISSION 2 11/20/2018 11/19/2018 documented in this encounter Care Teams Front End Developer Designer Relationship Specialty Start Date End Date No, Physician PCP - General 10/22/18 11/09/20 documented as of this encounter
--- OUTSIDE RECORDS SUMMARY | 2024-08-16 21:38 | XMS_ITS | Encounter Summary ---
Author Organization 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 Gender Identity Not on file Sexual Orientation Not on file documented as of this encounter Last Filed Vital Signs Vital Sign Reading Time Taken Comments Blood Pressure 141/94 11/12/2018 4:00 PM CDT Pulse 112 11/12/2018 4:00 PM CDT Temperature - - Respiratory Rate - - Oxygen Saturation - - Inhaled Oxygen Concentration - - Weight - - Height - - Body Mass Index - - documented in this encounter Discharge Instructions * Discharge Instructions* Racheal Ireland RN - 11/12/2018 4:03 PM CDT Return to Labor and Delivery on Saturday11/15/18 for NST and serial BP's unless patient showing signs and symptoms of preeclampsia, return to sooner. Please see instructions for detailed sign and symptoms. * Attachments The following attachments cannot be sent through Care Everywhere. * Preeclampsia (General Information) (Spanish) documented in this encounter Medications at Time of Discharge iron aspgly,[id number]-C-[id number] A-Ca-suc 150-60-25-1 ud-lf-cae-mg capsule Take by mouth 11/22/2018 nitrofurantoin monohydrate [...] documented in this encounter Nursing Notes * Racheal Ireland RN - 11/12/2018 4:14 PM CDT Patient sent to labor and delivery for NST, serial BP's and PIH labs. Dr. Phillips notified of reactive NST, labs and serial BP's. Orders to discharge home, return to labor and delivery on Saturday11/15/18 for repeat NST and serial BP's. Patient advised to return to labor and delivery if s&s of preeclampsia return. Patient verbalized understanding of discharge instructions and when to return. Patient ambulated off unit in stable condition. 11/12/2018 Racheal Ireland RN documented in this encounter Plan of Treatment Not on file documented as of this encounter Procedures Procedure Name Priority Date/Time Associated Diagnosis Comments EGFR STAT 11/12/2018 3:03 PM CDT DIFFERENTIAL AUTO STAT 11/12/2018 3:0 3 PM CDT CBC WITH AUTO DIFFERENTIAL STAT 11/12/2018 3:03 PM CDT URIC ACID STAT 11/12/2018 3:03 PM CDT LACTATE DEHYDROGENASE STAT 11/12/2018 3:03 PM CDT COMPREHENSIVE METABOLIC PANEL STAT 11/12/2018 3:03 PM CDT URINALYSIS AND REFLEX TO MICROSCOPIC AND CULTURE Routine 11/12/2018 2:57 PM CDT URINALYSIS, MICROSCOPIC ONLY Routine 11/12/2018 2:57 PM CDT URINE CULTURE Routine 11/12/2018 2:57 PM CDT documented in this encounter Results * eGFR (11/12/2018 3:03 PM CDT) eGFR 134 mL/min/1.7 3 m2 [facility] (NOLAN) Comment: Interpretive Data Reference Interval Normal ?>/= 90 mL/min/1.73m2 Mildly decreased* ? 60 - 89 mL/min/1.73m2 Mildly to moderately decreased ?45 - 59 mL/min/1.73m2 Moderately to severely decreased ??30 - 44 mL/min/1.73m2 Severely decreased ?15 - 29 mL/min/1.73m2 Kidney Failure ?< 15 ??mL/min/1.73m2 *Relative to young adult level If -[place] Citizen multiply value by 1.16. Estimated glomerular filtration [...] was last reviewed 2016. Blood specimen (specimen) 11/12/2018 3:03 PM CDT 11/12/2018 3:12 PM CDT Narrative [facility] ([facility]) - 11/12/2018 3:42 PM CDT us Dunia Phillips MD LAB BLOOD ORDERABLES Fin al Result [facility] ([place]OL[facility]) [address] [facility] Department [place] [address] * (ABNORMAL) Differential, auto (11/12/2018 3:03 PM CDT) Neutrophil abs 13.5(H) 1.7 - 6.5 K/cumm [facility] ([facility]) Imm gran abs 0.4(H) 0.0 - 0.1 K/cumm [facility] ([facility]) Lymphocyte abs 2.5 0.8 - 3.3 K/cumm [facility] ([place]) Monocyte abs 1.1(H) 0.2 - 0.8 K/cumm [facility] ([place]) Eosinophil abs 0.2 0.0 - 0.5 K/cumm [facility] ([place]) Basophil abs 0.0 0.0 - 0.1 K/cumm [facility] ([place]) Neutrophil pct 76.2 % [facility] ([place]) Comment: Interpretive Data Percent cell count reference ranges are not reported, since discordance with absolute values may lead to misinterpretation of CBC data. Current Interpretive Data was last revised on 2017. Imm gran pct 2.3 % [facility] ([place]) Comment: Interpretive Data Percent cell count reference ranges are not reported, since discordance with absolute values may lead to misinterpretation of CBC data. Current Interpretive Data was last revised on 2017. Lymphocyte pct 14.2 % [facility] ([facility]) Comment: Interpretive Data Percent cell count reference ranges are not reported, since discordance with absolute values may lead to misinterpretation of CBC data. Current Interpretive Data was last revised on 2017. Monocyte pct 6.0 % [facility] ([place]) Comment: Interpretive Data Percent cell count reference ranges are not reported, since discordance with absolute values may lead to misinterpretation of CBC data. Current Interpretive Data was last revised on 2017. Eosinophil pct 1.0 % [facility] ([facility]) Comment: Interpretive Data Percent cell count reference ranges are not reported, since discordance with absolute values may lead to misinterpretation of CBC data. Current Interpretive Data was last revised on 2017. Basophil pct 0.3 % [facility] ([place]) Comment: Interpretive Data Percent cell count reference ranges are not reported, since discordance with absolute values may lead to misinterpretation of CBC data. Current Interpretive Data was last revised on 2017. Blood specimen (specimen) 11/12/2018 3:03 PM CDT 11/12/2018 3:10 PM CDT Narrative [facility] ([facility]) - 11/12/2018 3:11 PM CDT us Dunai Phillips MD LAB BLOOD ORDERABLES Fin al Result Performing Organization Address City/[facility] Co de Phone Number [facility] ([place]OL[facility]) [facility] Department [place] [address] * (ABNORMAL) Lactate dehydrogenase (LD) (11/12/2018 3:03 PM CDT) Lactate dehydrogenase (LDH) 481(H) 100 - 250 Units/L [facility] (NOLAN) Blood specimen (specimen) 11/12/2018 3:03 PM CDT 11/12/2018 3:11 PM CDT Narrative [facility] ([facility]) - 11/12/2018 3:42 PM CDT us Dunia Phillips MD LAB BLOOD ORDERABLES Fin al Result [facility] ([place]) [address] [facility] [place] [address] * Uric acid (11/12/2018 3:03 PM CDT) Uric acid 4.1 2.5 - 7.0 mg/dL [facility] ([place]) Blood specimen (specimen) 11/12/2018 3:03 PM CDT 11/12/2018 3:11 PM CDT [facility]ative [facility] - 11/12/2018 3:42 PM CDT us Dunia Phillips MD LAB BLOOD ORDERABLES Fin al Result [facility] ([place]OL[facility]) [address] [facility] [place] [address] * (ABNORMAL) Comprehensive metabolic panel (11/12/2018 3:03 PM CDT) Sodium 135 135 - 145 mmol/L [facility] ([place]) Potassium, pl 4.3 3.3 - 4.9 mmol/L [facility] ([place]) Chloride 103 97 - 110 mmol/L [facility] ([place]) CO2 19(L) 22 - 32 mmol/L [facility] ([place]) Anion gap 14 2 - 15 mmol/L [facility] ([place]) BUN 11 8 - 25 mg/dL [facility] ([place]) Creatinine 0.58(L) 0.60 - 1.10 mg/dL [facility] ([place]) Glucose 102 70 - 199 mg/dL [facility] ([place]) Comment: Interpretive Data Fasting glucose >/= [...] interpretive data was last revised 2017. Calcium 9.2 8.5 - 10.3 mg/dL [facility] ([place]) Bilirubin, total <0.2 0.1 - 1.2 mg/dL [facility] ([place]) Protein, pl 7.5 6.5 - 8.5 g/dL [facility] ([place]) Albumin 3.5 3.5 - 5.0 g/dL [facility] ([place]) Alk phos 142 70 - 260 Units/L [facility] ([place]) ALT 11 7 - 45 Units/L [facility] ([place]) AST 16 10 - 45 Units/L [facility] ([place]) Blood specimen (specimen) 11/12/2018 3:03 PM CDT 11/12/2018 3:11 PM CDT Narrative [facility] ([facility]) - 11/12/2018 3:42 PM CDT us Dunia Phillips MD LAB BLOOD ORDERABLES Fin al Result [facility] ([place]) [facility] [place] [address] * (ABNORMAL) CBC with auto differential (11/12/2018 3:03 PM CDT) WBC 17.7(H) 3.8 - 9.9 K/cumm [facility] ([place]) Hgb 9.8(L) 11.9 - 15.5 g/dL [facility] ([place]) Hct 29.2(L) 35.6 - 45.5 % [facility] ([place]) Plt 286 150 - 400 K/cumm [facility] ([place]) MPV 10.1 9.1 - 12.3 fL [facility] ([place]) RBC 3.36(L) 3.90 - 5.20 M/cumm [facility] ([place]) MCV 86.9 81.3 - 96.4 fL [facility] ([place]) MCH 29.2 27.1 - 33.3 pg [facility] ([place]) MCHC 33.6 32.3 - 35.7 g/dL [facility] ([place]) RDW CV 12.1 11.1 - 14.9 % [facility] ([facility]) RDW SD 38.8 35.7 - 48.1 fL [facility] ([facility]) NRBC abs 0.00 0.00 - 0.01 K/cumm [facility] ([place]) Blood specimen (specimen) 11/12/2018 3:03 PM CDT 11/12/2018 3:10 PM CDT Narrative [facility] ([facility]) - 11/12/2018 3:11 PM CDT us Dunia Phillips MD LAB BLOOD ORDERABLES Fin al Result Performing Organization Address City/[facility]/ZIP Co de Phone Number [facility] ([facility]) [address] [facility] [place] [address] * Urine culture Urine, clean voided (11/12/2018 2:57 PM CDT) Report Final Report: Less than 100,000 colonies/mL (clinically insignificant growth based on current clinical standards) [facility] (NOLAN) Comment:Testing performed by : [facility], [address] [facility] [place] [place] [address] Organism (CLINICALLY INSIGNIFICANT GROWTH [facility] ([facility]OLAN) Urine, clean voided 11/12/2018 2:57 PM CDT 11/12/2018 5:38 PM CDT Narrative [facility] ([facility]) - 11/13/2018 11:20 AM CDT Urine culture reflexed based upon urinalysis results. Testing performed by [facility] ([phone]) Dunia Phillips MD LAB MICROBIOLOGY - GENER AL ORDERABLES Final Result Performing Organization Address [facility] Co de Phone Number [facility] ([place]OL[facility]) [address] [facility] [place] [address] * (ABNORMAL) Urinalysis, microscopic only (11/12/2018 2:57 PM CDT) WBC, ur 11-20(A) 0 - 5 /HPF [facility] RBC, ur 6-10(A) 0 - 2 /HPF [facility] ([place]) Epithelial cells, squamous, ur 6-10(A) 0 - 5 /HPF [facility] ([place]) Comment:Suggestive of contam ination. Consider recollection by clean catch. Bacteria, ur 1+(A) [facility] Hyaline casts, ur 6-10 0 - 10 /LPF [facility] Urine, clean voided 11/12/2018 2:57 PM CDT 11/12/2018 2:59 PM CDT Narrative [facility] ([place]) - 11/12/2018 3:06 PM CDT us Dunia Phillips MD LAB URINE ORDERABLES Fin al Result [facility] ([place]) 1 [facility] [place] [address] * (ABNORMAL) Urinalysis reflex to microscopic and culture Urine, clean voided (11/12/2018 2:57 PM CDT) Color, ur Yellow Yellow [facility] ([place]) Clarity, ur Cloudy(A) Clear [facility] ([place]) Specific gravity, ur 1.021 1.010 - 1.025 [facility] ([place]) pH, urine 6.5 [facility] Protein, ur ql Negative Negative [facility] Glucose, ur ql Negative Negative [facility] Ketones, ur Negative Negative [facility] ([place]) Bilirubin, ur Negative Negative [facility] ([place]) Blood, ur 3+(A) Negative [facility] ([place]) Urobilinogen, ur 0.2 mg/dL [facility] Nitrite, ur Negative Negative [facility] ([place]) Leukocyte esterase, ur 2+(A) Negative [facility] Urine, clean voided 11/12/2018 2:57 PM CDT 11/12/2018 2:59 PM CDT Narrative [facility] ([place]) - 11/12/2018 3:06 PM CDT ?? Urine pH is affected by diet, medications, systemic acid-base disturbances, and renal tubular function. ??pH may affect urinary stone formation. ??For example, urine pH below 6.0 may help reduce the tendency for calcium phosphate stones and pH greater than 6.0 may reduce the tendency for uric acid stone formation. Source: [employer]. Last revised 08-22-2017 us Dunia Phillips MD LAB MICROBIOLOGY - GENER AL ORDERABLES Final Result [facility] ([place]) [facility] [place] [address] documented in this encounter Visit Diagnoses Not on filedocumented in this encounter Care Teams Business Specialist Relationship Specialty Start Date End Date No, Physician PCP - General 10/22/18 11/09/20 documented as of this encounter
--- OUTSIDE RECORDS SUMMARY | 2024-08-16 21:38 | XMS_ITS | Encounter Summary ---
Author Organization [facility] Facility Care Team Providers Care Manager People Name Role Phone Tg Melgar MD Primary Care Provider [phone] Encounter Details Date Type Department Care Team (Late st Contact Info) Description 12/26/2010 11:56 AM CDT - 01/09/2011 11:59 PM CDT Hospital Encounter [facility] Quiroga, Anne Javier MD [address] [address] Encounter for other specified aftercare; Cellulitis and abscess of leg Social History Tobacco Use Types Packs/Day Years Used Date Smoking Tobacco: Never Assessed Comments Unknown Sex and Gender Information Value Date Recorded Sex Assigned at Not on file 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 Gender Identity Not on file Sexual Orientation Not on file documented as of this encounter Last Filed Vital Signs Vital Sign Reading Time Taken Comments Blood Pressure - - Pulse 98 12/29/2010 1:44 PM CDT Temperature - - Respiratory Rate - - Oxygen Saturation - - Inhaled Oxygen Concentration - - Weight 42 kg (92 lb 9.5 oz) 12/26/2010 11:58 AM CDT Height - - Body Mass Index - - documented in this encounter Plan of Treatment Not on file documented as of this encounter Visit Diagnoses Diagnosis Encounter for other specified aftercare Cellulitis and abscess of leg Cellulitis and abscess of leg, except foot documented in this encounter Care Teams Manager People Relationship Specialty Start Date End Date Tg Melgar MD [address] [place] [address] PCP - General 10/06/07 04/10/18 documented as of this encounter
--- OUTSIDE RECORDS SUMMARY | 2024-08-16 21:38 | XMS_ITS | Encounter Summary ---
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 documented in this encounter Plan of Treatment Not on file documented as of this encounter Visit Diagnoses Not on filedocumented in this encounter Care Teams Apprise Counselor Relationship Specialty Start Date End Date No, Physician PCP - General 11/11/20 01/16/24 documented as of this encounter
--- OUTSIDE RECORDS SUMMARY | 2024-08-16 21:38 | XMS_ITS | Encounter Summary ---
Author Organization [facility] Healthcare Address [address] [place] [address] Care Team Providers Care Wet Finisher Name Role Phone Tyler Higgins MD Primary Care Provider [phone] No, Physician Primary Care Provider [phone] Encounter Details Date Type Department Care Team (Late st Contact Info) Description 11/10/2020 10:25 PM CDT Anesthesia Event [facility] [address] [place] [address] Dunia Phillips MD [address] [place], [place] [id number] Diana Mercado CRNA [address] [place] [address] [place] [id number] Anesthesia Record Procedure Summary Procedure Name Responsible Anesthesiologist Anesthesia Start Time Anesthesia Stop Time Labor Analgesia Dunia Phillips MD 11/10/20 222 5 11/11/20 0750 Events Date Time Event Comment 11/10/20202057 2225 An Start 2225 Face Time 2230 Time out - Regional 2239 Epidural Placed 11/11/2020 0750 An Stop Meds Name Total fentaNYL 100 mcg lidocaine 1 % PF 5 mL * Agents No agents on file. * Blood No blood administrations on file. Lines, Drains, and Airways Type Details Placement Removal Peripheral IV Placement Date: 11/10/20; Placement Time: 2114; Catheter Size: 20 G; Orientation: Left, Posterior; Location: Hand; Site Prep: Chlorhexidine; Inserted by: Criselda Trevino RN; Insertion Attempts: 4 (Tracee Sosa RN 2 attempts; Criselda Trevino RN 2 attempts); Patient Tolerance: Tolerated well; Removal Date: 11/12/20; Removal Time: 1430 11/10/20 211 by Brit Sosa RN 11/12/20 1430 by Odalis Aguilera RN Epidural Placement Date: 11/10/20; Placement Time: 2255 (created via procedure documentation); Removal Date: None; 11/11/20; 1000 11/10/20 225 by Diana Mercado CRNA 11/11/20 1000 by Evangelina Carpenter RN Urethral Catheter Placement Date: 11/10/20; Placement Time: 2339; Inserted by: Tracee Sosa RN; Size: 16 Fr.; Balloon Size: 10 mL; Urine Returned: Yes; Removal Date: 11/11/20; Removal Time: 720; Removal Reason: Per order 11/10/20 234 by Brit Sosa RN 11/11/20 0721 by Evangelina Carpenter RN documented in this encounter Social History Tobacco [...] Binge Drinking Not on file 08/2020 Comments Yes Sex and Gender Information Value Date Recorded Sex Assigned at Not on file 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 Gender Identity Not on file Sexual Orientation Not on file documented as of this encounter OR Notes * Anesthesia Postprocedure Evaluation - Mariah Hyde CRNA - 11/11/2020 8:26 AM CDT Patient: Zenia Sparks Procedure Summary Date: 11/10/20 Room / Location: Anesthesia Start: 2224 Anesthesia Stop: 11/11/20 0750 Procedure: Labor Analgesia Diagnosis: Scheduled Providers: Responsible Provider: Dunia Phillips MD Anesthesia Type: epidural ASA Status: 2 - Emergent Anesthesia Type: epidural Last vitals BP 121/68 Pulse 93 Temp 37.2 ??C (98.9 ??F) (Temporal) SpO2 97% Anesthesia Post Evaluation Patient location during evaluation: floor Patient participation: complete - patient participated Level of consciousness: fully awake Pain management: adequate Airway patency: adequate Anesthetic complications: no Cardiovascular status: acceptable Respiratory status: acceptable Hydration status: acceptable Pt is: normothermic Nausea/Vomiting status: none * Anesthesia Procedure Notes - Diana Mercado CRNA - 11/10/2020 10:55 PM CDTAssociated Order(s): Epidural Block Epidural Block Patient location: L&D Reason for block: labor analgesia Staff: Supervising provider: Dunia Phillips MD Placed by: COPY CENTER OPERATOR: Diana Mercado CRNA Procedure prep: Preprocedure checklist: patient identified, procedure contraindications assessed, procedure consentobtained, IV checked, risks, benefits and alternatives discussed and timeout performed Patient Position: sitting Procedure performed while patient: awake Monitoring: oximetry and blood pressure Prep solution: chlorhexadine/alcohol Skin infiltrated with lidocaine 1%: yes Epidural: Approach: midline Imaging guidance used: no Location: L3-4 Number of attempts:2 Epidural needle: Injection technique: ELISSA saline Needle type: Tuohy Needle gauge: 17 G Needle length: 9 cm Loss of resistance: 6 cm Catheter: Catheter type: multi-orifice. Catheter at skin depth: 12 cm Negative aspiration of blood: no Negative aspiration of CSF: no Test dose: negative Assessment: Sensory level - left: T6 Sensory level - right: T6 Events: patient tolerated procedure well with no complications * Anesthesia Preprocedure Evaluation - Diana Mercado CRNA - 11/10/2020 8:56 PM CDT Images from the original note were not included. Anesthesia Evaluation Zenia Sparks is a 20 y.o. female * No procedures listed * * No Diagnosis Codes entered * HISTORY Past Medical History Information obtained from: patient and chart. Neurological Neuro/Psych system: negative Cardiovascular + Hypertension Respiratory + Current smoker - Counseled to abstain from smoking the day of surgery. Patient smoked on day of surgery. Respiratory system: negative Hepatic / Heme Hepatic/Heme system: negative Gastrointestinal GI system: negative Renal / Renal/ system: negative Musculoskeletal/Pain Musculoskeletal/Pain system: negative Endocrine / Other + Diabetes mellitus (Gestational) Functional Capacity Functional capacity: 4-6 METs Functional capacity limited by a non-cardiovascular, non-pulmonary condition. Day of Surgery assessments + Possibility of assessed - known to be . Review of Systems Pertinent negatives: bleeding problems There is no problem list on file for this patient. Past Medical History: Diagnosis Date ??? Depression ??? Hypertension 11/2018 gestational HTN first History reviewed. No pertinent surgical history. OB History 2 Para 1 Term 1 AB Living 1 SAB TAB Ectopic Multiple 0 Live Births 1 No Known Allergies Taking? Last Dose Start Date End Date Provider docusate sodium (COLACE) 100 mg capsule 11/09/2020 11/21/18 -- Fernando Mitchell MD Take 1 capsule (100 mg total) by mouth 2 (two) times a day PNV cmb [id number] mg combo pack 11/09/2020 -- -- ProviderMathew MD sertraline (ZOLOFT) 50 mg tablet 11/09/2020 -- -- ProviderMathew MD Current Facility-Administered Medications: ??? acetaminophen (TYLENOL) tablet 1,000 mg, 1,000 mg, oral, Once ??? Lactated Ringer's (LR) bolus 1,000 mL, 1,000 mL, intravenous, Once ??? Lactated Ringer's (LR) infusion, 125 mL/hr, intravenous, Continuous Social History Tobacco Use Smoking Status Current Every Day Smoker ??? Packs/day: 0.25 Smokeless Tobacco Never Used Substance and Sexual Activity Alcohol Use Never Substance and Sexual Activity Drug Use Not Currently ??? Types: Marijuana Comment: before Family History Problem Relation Age of Onset ??? Thyroid disease Mother ??? Aneurysm Father Vitals: 11/10/20 1922 11/10/20 1955 11/10/202005 BP: 133/89 135/76 145/93 Comment: pt ezio Pulse: 112 101 122 Temp: PT: No results found for requested labs within last 720 hours. INR: No results found for requested labs within last 720 hours. APTT: No results found for requested labs within last 720 hours. Hgb A1C: No results found for requested labs within last 720 hours. CBC RBC: No results found for requested labs within last 720 hours. RDW: No results found for requested labs within last 720 hours. MCHC: No results found for requested labs within last 720 hours. MCH: No results found for requested labs within last 720 hours. MCV: No results found for requested labs within last 720 hours. Hct: No results found for requested labs within last 720 hours. Hgb: No results found for requested labs within last 720 hours. WBC: No results found for requested labs within last 720 hours. MPV: No results found for requested labs within last 720 hours. Platelets: No results found for requested labs within last 720 hours. RDW CV: No results found for requested labs within last 720 hours. RDW Sd: No results found for requested labs within last 720 hours. BMP Glucose: No results found for requested labs within last 720 hours. Calcium: No results found for requested labs within last 720 hours. Sodium: No results found for requested labs within last 720 hours. Potassium: No results found for requested labs within last 720 hours. CO2: No results found for requested labs within last 720 hours. Chloride: No results found for requested labs within last 720 hours. BUN: No results found for requested labs within last 720 hours. Creatinine: No results found for requested labs within last 720 hours. DOS Physical Exam Medical history, medications, and allergies reviewed. Attestation: I endorse the findings of the anesthesia pre-evaluation assessment dated: 11/10/2020. Airway Exam: Mallampati: II Cervical ROM: FROM TM distance: normal Jaw ROM: full Cardiovascular Exam: Rate: regular Rhythm: regular Pulmonary Exam: LCTA EENT Exam: trachea midline Dental Exam: Appears intact Skin Exam: Skin is warm and dry. Capillary refill is < 3 seconds. Turgor is normal. Abdominal Exam: Abdomen is soft. Bowel sounds are present. Current state: Patient's current state is cooperative. Anesthesia Plan ASA 2- emergent Planned anesthesia: Epidural Postoperative Plan: Postoperative administration opioids intended. No postoperative mechanical ventilation intended. Patient's planned disposition post procedure is Floor. Informed Consent: Discussed plan with COPY CENTER OPERATOR and attending. Anesthesia plan and risks discussed with patient and spouse. Consent and Attending signature: I and/or my designee have discussed the anesthesia plan, benefits, possible alternatives, parental presence at time of induction (if indicated), and clinically relevant risks that may include dental injury, unintentional awareness, and/or other complications. The patient and/or parent/legal guardian understand, and agree to proceed. All questions answered. documented in this encounter Plan of Treatment Not on file documented as of this encounter Procedures Procedure Name Priority Date/Time Associated Diagnosis Comments ANESTHESIA EPIDURAL BLOCK Routine 11/10/2020 10:55 PM CDT documented in this encounter Results * Epidural Block (11/10/2020 10:55 PM CDT) Narrative Diana Mercado CRNA - 11/10/2020 10:55 PM CDT Diana Mercado CRNA ? 11/10/2020 10:56 PM Epidural Block Patient location: L&D Reason for block: labor analgesia Staff: Supervising provider: Dunia Phillips MD Placed by: COPY CENTER OPERATOR: Diana Mercado CRNA Procedure prep: Preprocedure checklist: patient identified, procedure contraindications assessed, procedure consent obtained, IV checked, risks, benefits and alternatives discussed and timeout performed Patient Position: sitting Procedure performed while patient: awake Monitoring: oximetry and blood pressure Prep solution: chlorhexadine/alcohol Skin infiltrated with lidocaine 1%: yes Epidural: Approach: midline Imaging guidance used: no Location: L3-4 Number of attempts:2 Epidural needle: Injection technique: ELISSA saline Needle type: Tuohy Needle gauge: 17 G Needle length: 9 cm Loss of resistance: 6 cm Catheter: Catheter type: multi-orifice. Catheter at skin depth: 12 cm Negative aspiration of blood: no Negative aspiration of CSF: no Test dose: negative Assessment: Sensory level - left: T6 Sensory level - right: T6 Events: patient tolerated procedure well with no complications us Dunia Phillips MD ANESTHESIA ORDERABLES Fi nal Result documented in this encounter Visit Diagnoses Not on filedocumented in this encounter Administered Medications Inactive Administered Medications - up to 3 most recent administrations Medication Order MAR Action Action Date Dose Rate Site fentaNYL (SUBLIMAZE) preservative free injection epidural, As needed, Starting on Franca 11/10/20 at 2245, Anesthesia Intra-op Given 11/10/2020 10:45 PM CDT 100 mcg lidocaine PF (XYLOCAINE) 10 mg/mL (1 %) preservative free injection infiltration, As needed, Starting on Franca 11/10/20 at 2245, Anesthesia Intra-op Given 11/10/2020 10:45 PM CDT 5 mL documented in this encounter Care Teams Wet Finisher Relationship Specialty Start Date End Date Tyler Higgins MD [address] [place] [address] [place] [address] PCP - General 11/10/20 11/10/20 No, Physician PCP - General 11/11/20 01/16/24 documented as of this encounter
--- OUTSIDE RECORDS SUMMARY | 2024-08-16 21:38 | XMS_ITS | Encounter Summary ---
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
--- OUTSIDE RECORDS SUMMARY | 2024-08-16 21:38 | XMS_ITS | Encounter Summary ---
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
--- OUTSIDE RECORDS SUMMARY | 2024-08-16 21:38 | XMS_ITS | Encounter Summary ---
Author Organization [facility] Healthcare Address [address] [place] [address] Care Team Providers Care Photonics Technician Name Role Phone No, Physician Primary Care Provider [phone] Reason for Visit * Reason Comments Consult * Consultation (Routine) - Pending Review Specialty Diagnoses / Procedures Referred By Isaiah t Referred To Contact Obstetrics and Gynecology Diagnoses Encounter for sterilization No, Physician Phone: tel: [facility] [address] [place] [address] Floor [address] [place] [address] Phone: tel: fax: Referral ID Status Reason Start Date Expiration Date Visits Requested Visits Authorized [id number] Pending Review Specialty Services Required 09/21/2023 10/20/2024 1 1 Encounter Details Date Type Department Care Team (Latest Contact Info) Description 11/01/2023 2:45 PM CDT Office Visit [facility] Clinic [address] [place] [address] Floor [address] [place] [address] Lizy Templeton MD [address] [place] [address] [address] [place] [address] Sterilization consult (Primary Dx); Unwanted fertility Social History Tobacco Use Types Packs/Day Years [...] on file Legal Sex Female 6:[address] Gender Identity Not on file Sexual Orientation Not on file documented as of this encounter Last Filed Vital Signs Vital Sign Reading Time Taken Comments Blood Pressure 118/64 11/01/2023 2:51 PM CDT Pulse 94 11/01/2023 2:51 PM CDT Temperature - - Respiratory Rate 18 11/01/2023 2:51 PM CDT Oxygen Saturation 99% 11/01/2023 2:51 PM CDT Inhaled Oxygen Concentration - - Weight 81.3 kg (179 lb 3.2 oz) 11/01/2023 2:51 P M CDT Height - - Body Mass Index 33.86 11/19/2018 6:47 PM CDT documented in this encounter Progress Notes * Lizy Templeton MD - 11/01/2023 2:45 PM CDT [employer]BER NEW VISIT Subjective: Zenia Sparks is a 23 y.o. who presents with undesired future fertility. PMH significant for anxiety (on aripiprazole). Pt reports she has wanted a tubal since her last delivery in 11/2020. She had a nexplanon placed at time of delivery and will lose control benefit from her nexplanon in 11/2023. She was [facility] to [facility] for her primary OB not having surgery slots available until June. She desires surgery sooner. 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 Physical Exam General: NAD, mood appropriate Pulmonary: Non-labored Cardiovascular: Regular rate Abdomen: soft, non-tender, non-distended, without rebound or guarding Extremities: Warm and well perfused GENITAL EXAM: deferred Assessment/Plan: Zenia Sparks is a 23 y.o. with undesired future fertility. #undesired future fertility - pt desires tubal ligation - counseled on risk of regret as high as 20% under age 30; pt has been thinking about BTL for 3 years and feels secure in her decision - discussed r/b/a to BTL, including LARCs as alternatives; risks including bleeding, infection, andrisk of injury to nearby structures - Medicaid tubal papers signed 10/31 - will be for CPAP and surgery scheduling RTC post-op. Patient seen and discussed with Dr. Kelly. Lizy Templeton MD Cosigned by Scotty Kelly MD at 11/05/2023 12:13 PM CDT Associated attestation - Scotty Kelly MD - 11/05/2023 12:13 PM CDT I have seen and examined the patient. I agree with the findings and plan of care as discussed with and documented by resident physician Lizy Templeton MD (PGY-2). Patient with undesired future fertilityand desire for Nexplanon removal. Reviewed risks, benefits, and alternatives to procedure. Patient is confident she is done with her family planning and risk of regret and procedure failure reviewed.Will schedule for laparoscopic bilateral salpingectomy. [facility] consent signed 11/01/23 and will wait for this to mature. Depending on timing of surgery, may remove Nexplanon in OR versus office. documented in this encounter Plan of Treatment Not on file documented as of this encounter Visit Diagnoses Diagnosis Sterilization consult- Primary Other general counseling and advice for contraceptive management Unwanted fertility documented in this encounter Orders Outpatient Referral Count Last Ordered Date Fir st Ordered Date AMB REFERRAL TO OB-[facility] 1 11/01/2023 Case Request Count Last Ordered Date First Orde red Date CASE REQUEST OPERATING ROOM 1 11/04/2023 documented in this encounter Care Teams Photonics Technician Relationship Specialty Start Date End Date No, Physician PCP - General 11/11/20 01/16/24 documented as of this encounter
--- OUTSIDE RECORDS SUMMARY | 2024-08-16 21:38 | XMS_ITS | Encounter Summary ---
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 Name Role Phone No, Physician Primary Care Provider [phone] Reason for Visit * Reason Comments Vaginal Bleeding Encounter Details Date Type Department Care Team (Latest Contact Info) Description 11/13/2018 6:52 PM CDT - 11/13/2018 8:10 PM CDT Hospital Encounter [facility] [address] [place] [address] Dunia Phillips MD [address] [place] [address] Discharge Disposition: Discharge to home or self [...] on file 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 Gender Identity Not on file Sexual Orientation Not on file documented as of this encounter Last Filed Vital Signs Vital Sign Reading Time Taken Comments Blood Pressure 134/87 11/13/2018 7:54 PM CDT Pulse 114 11/13/2018 7:54 PM CDT Temperature 37.3 ??C (99.2 ??F) 11/13/2018 7:09 PM CD T Respiratory Rate - - Oxygen Saturation - - Inhaled Oxygen Concentration - - Weight - - Height - - Body Mass Index - - documented in this encounter Discharge Instructions * Discharge Instructions* Nicole Cho RN - 11/13/2018 8:03 PM CDT Take macrobid till gone Follow up with BP check and NST on Saturday and office visit next saturday * Attachments The following attachments cannot be sent through Care Everywhere. * at 35 to 38 Weeks (Discharge Care) (Ukrainian) documented in this encounter Medications at Time of Discharge iron aspgly,ps-C-B12-F A-Ca-suc 150-60-25-1 eg-os-tin-mg capsule Take by mouth 11/22/2018 nitrofurantoin monohydrate (MACROBID) 100 mg capsule Take 1 capsule (100 mg total) by mouth 2 (two) times a day for 7 days 14 capsule 11/13/2018 11/19/2018 sertraline (ZOLOFT) 50 mg tablet Take 50 mg by mouth daily 11/12/2020 documented as of this encounter Ordered Prescriptions Prescription Sig Dispense Quantity Refills Last Filled Start Date End Date nitrofurantoin monohydrate (MACROBID) 100 mg capsule Take 1 capsule (100 mg total) by mouth 2 (two) times a day for 7 days 14 capsule 11/13/2018 9 documented in this encounter Discharge Disposition Disposition Code Departure Means Destination Discharge to home or self care documented in this encounter Nursing Notes * Nicole Cho RN - 11/13/2018 8:19 PM CDT Printed discharge instructions and prescription given, questions answered, is to return Saturday for BP check. VE done prior to calling , scant amount old blood noted on glove, no clots or active bleeding noted. * Nicole Cho RN - 11/13/2018 7:13 PM CDT C/o spotting when wiping, took bath around 1500 and noted clots in tub, took picture of them, small, states bleeding was the same after passing clots, had VE in office with some bright red bleeding after, c/o cramping on right side and mid to low back pain, some contractions, not sure how many, lasting a minute or so. VE in office yesterday -- 1cm documented in this encounter Plan of Treatment Not on file documented as of this encounter Procedures Procedure Name Priority Date/Time Associated Diagnosis Comments URINALYSIS AND REFLEX TO MICROSCOPIC AND CULTURE STAT 11/13/2018 7:09 PM CDT URINALYSIS, MICROSCOPIC ONLY STAT 11/13/2018 7:09 PM CDT URINE CULTURE STAT 11/13/2018 7:09 PM CDT documented in this encounter Results * Urine culture Urine, clean voided (11/13/2018 7:09 PM CDT) Report Final Report: Less than 100,000 colonies/mL (clinically insignificant growth based on current clinical standards) MARCIAL BASS) Comment:Testing performed by : [facility] [place], [address] [place]., [address] Organism (CLINICALLY INSIGNIFICANT GROWTH [facility]CIAL RANDLE (NOLAN) Urine, clean voided 11/13/2018 7:09 PM CDT 11/13/2018 10:02 PM CDT Narrative MARCIAL BASS) - 11/14/2018 5:37 PM CDT Urine culture reflexed based upon urinalysis results. Testing performed by [facility] [place] [facility] ([phone]) us Fernando Mitchell MD LAB MICROBIOLOGY - GEN ERAL ORDERABLES Final Result MARCIAL BASS) 1 [facility] [place] [address] * (ABNORMAL) Urinalysis, microscopic only (11/13/2018 7:09 PM CDT) WBC, ur >50(A) 0 - 5 /HPF [facility] (NOLAN) RBC, ur 6-10(A) 0 - 2 /HPF [facility] (NOLAN) Epithelial cells, squamous, ur 6-10(A) 0 - 5 /HPF [facility] (NOLAN) Comment:Suggestive of contam ination. Consider recollection by clean catch. Bacteria, ur 3+(A) [facility] (NOLAN) Hyaline casts, ur >30 0 - 10 /LPF [facility] (NOLAN) Urine, clean voided 11/13/2018 7:09 PM CDT 11/13/2018 7:14 PM CDT N[facility]ative [facility] (NOL[facility]) - 11/13/2018 7:29 PM CDT Fernando Mitchell MD LAB URINE ORDERABLES F inal Result [facility] (NOLAN) 1 [facility] [place] [address] * (ABNORMAL) Urinalysis reflex to microscopic and culture Urine, clean voided (11/13/2018 7:09 PM CDT) Color, ur Yellow Yellow [facility] (NOLAN) Clarity, ur Cloudy(A) Clear [facility] (NOLAN) Specific gravity, ur 1.021 1.010 - 1.025 [facility] (NOLAN) pH, urine 6.0 [facility] (NOL[facility]) Protein, ur ql 1+(A) Negative [facility] (NOL[facility]) Glucose, ur ql Negative Negative [facility] (NOLAN) Ketones, ur Negative Negative [facility] (NOLAN) Bilirubin, ur Negative Negative [facility] (NOLAN) Blood, ur 3+(A) Negative [facility] (NOL[facility]) Urobilinogen, ur 0.2 mg/dL [facility] (NOL[facility]) Nitrite, ur Negative Negative [facility] A (NOLAN) Leukocyte esterase, ur 2+(A) Negative [facility] (NOL[facility]) Urine, clean voided 11/13/2018 7:09 PM CDT 11/13/2018 7:14 PM CDT Narrative [facility] (NOLAN) - 11/13/2018 7:29 PM CDT ?? Urine pH is affected by diet, medications, systemic acid-base disturbances, and renal tubular function. ??pH may affect urinary stone formation. ??For example, urine pH below 6.0 may help reduce the tendency for calcium phosphate stones and pH greater than 6.0 may reduce the tendency for uric acid stone formation. Source: [facility] [employer]. Last revised 08-22-2017 us Fernando Mitchell MD LAB MICROBIOLOGY - GEN ERAL ORDERABLES Final Result [facility] (NOLAN) 1 [facility] [place] [address] documented in this encounter Visit Diagnoses Not on filedocumented in this encounter Care Teams Farmworker [employer] Producing [employer] Relationship Specialty Start Date End Date No, Physician PCP - General 10/22/18 11/09/20 documented as of this encounter
--- OUTSIDE RECORDS SUMMARY | 2024-08-16 21:38 | XMS_ITS | Encounter Summary ---
Author Organization [facility] Healthcare Address [address] [place] [address] Care Team Providers Care Wool Hat Sanding Machine Operator Name Role Phone No, Physician Primary Care Provider [phone] Reason for Visit * Reason Comments Contractions Encounter Details Date Type Department Care Team (Latest Contact Info) Description 10/22/2018 6:27 PM CDT - 10/22/2018 7:36 PM CDT Hospital Encounter [facility] and Child[facility] 1 [place] [address] Dunia Phillips MD [address] [place] [address] Discharge Disposition: Discharge to home or self care Social History Tobacco Use Types Packs/Day Years Used Date Smoking Tobacco: Every Day Cigarettes Smokeless Tobacco: Never Tobacco Cessation:Ready to Q uit: No Alcohol Use Standard Drinks/Week Comments Never 0 (1 standard drink = 0.6 oz pur e alcohol) AUDIT-C Answer Date Recorded Frequency of Alcohol Consumption Never 10/22/2018 Average Number of Drinks Not on file 019 Frequency of Binge Drinking Not on file 10/10 Comments Yes Sex and Gender Information Value Date Recorded Sex Assigned at Not on file Legal Sex Female 6:01 PM CONTACT PERSON Gender Identity Not on file Sexual Orientation Not on file documented as of this encounter Last Filed Vital Signs Vital Sign Reading Time Taken Comments Blood Pressure 128/75 10/22/2018 6:39 PM CDT Pulse 114 10/22/2018 6:39 PM CDT Temperature 36.9 ??C (98.4 ??F) 10/22/2018 6:39 PM CD T Respiratory Rate 16 10/22/2018 6:39 PM CDT Oxygen Saturation - - Inhaled Oxygen Concentration - - Weight - - Height - - Body Mass Index - - documented in this encounter Discharge Instructions * Attachments The following attachments cannot be sent through Care Everywhere. * Early Labor Signs (General Information) (Syriac) documented in this encounter Medications at Time of Discharge iron aspgly,ps-C-B12-F A-Ca-suc 150-60-25-1 ax-iw-yae-mg capsule Take by mouth 11/22/2018 sertraline (ZOLOFT) 50 mg tablet Take 50 mg by mouth daily 11/12/2020 documented as of this encounter Discharge Disposition Disposition Code Departure Means Destination Discharge to home or self care documented in this encounter Nursing Notes * Lu Aden RN - 10/22/2018 7:30 PM CDT RN unable to palpate contractions. Pt is resting comfortably in bed, texting on her phone. Pt givendischarge instructions. Dr. Phillips wants pt to get band. Pt verbalized understanding. Pt given early labor precautions. Pt verbalized understanding. documented in this encounter Plan of Treatment Not on file documented as of this encounter Procedures Procedure Name Priority Date/Time Associated Diagnosis Comments URINALYSIS AND REFLEX TO MICROSCOPIC AND CULTURE STAT 10/22/2018 6:53 PM CDT documented in this encounter Results * Urinalysis reflex to microscopic and culture Urine, clean voided (10/22/2018 6:53 PM CDT) Color, ur Yellow Yellow [facility] (NOL[facility]) Clarity, ur Clear Clear [facility] (NOLAN) Specific gravity, ur 1.017 1.010 - 1.025 [facility] (NOLAN) pH, urine 7.0 [facility] (NOLAN) Protein, ur ql Negative Negative [facility] (NOLAN) Glucose, ur ql Negative Negative [facility] (NOLAN) Ketones, ur Negative Negative [facility] (NOLAN) Bilirubin, ur Negative Negative [facility] (NOLAN) Blood, ur Negative Negative [facility] (NOLAN) Urobilinogen, ur 1.0 mg/dL [facility] (NOLAN) Nitrite, ur Negative Negative [facility] (NOLAN) Leukocyte esterase, ur Negative Negative [facility] (NOLAN) Urine, clean voided 10/22/2018 6:53 PM CDT 10/22/2018 6:56 PM CDT Narrative [facility] (NOLAN) - 10/22/2018 7:03 PM CDT ?? Urine pH is affected by diet, medications, systemic acid-base disturbances, and renal tubular function. ??pH may affect urinary stone formation. ??For example, urine pH below 6.0 may help reduce the tendency for calcium phosphate stones and pH greater than 6.0 may reduce the tendency for uric acid stone formation. Source: [employer]. Last revised 08-22-2017 Dunia Phillips MD LAB MICROBIOLOGY - [facility] AL ORDERABLES Final Result MAR[facility] RANDLE (NOLAN) 1 [facility] Department [place] [address] documented in this encounter Visit Diagnoses Not on filedocumented in this encounter Historical Medications * This list may reflect changes made after this encounter. iron aspgly,ps-C-B12-F A-Ca-suc 150-60-25-1 qj-fi-ugz-mg capsule Take by mouth 11/22/2018 added in this encounter Care Teams Wool Hat Sanding Machine Operator Relationship Specialty Start Date End Date No, Physician PCP - General 10/22/18 11/09/20 documented as of this encounter
--- OUTSIDE RECORDS SUMMARY | 2024-08-16 21:38 | XMS_ITS | Encounter Summary ---
Author Organization [facility] Address [address] [place] [address] Phone Care Team Providers Care Boiler Helper Name Role Phone Unknown, Notinfile Primary Care Provider Unavail able Encounter Details Date Type Department Care Team (Late st Contact Info) Description 01/24/2024 Telephone [facility] Obstetrics and Gynecology [address] [facility] 7th Floor [address] [place] [address] Amy Trinh, FLOR Social History Tobacco Use Types Packs/Day Years Used Date Smoking Tobacco: Every Day Cigarettes 0.3 7 Started: 2018 Vaping Smokeless Tobacco: Never Alcohol Use Standard Drinks/Week Comments Never 0 (1 standard drink = 0.6 oz pur e alcohol) AUDIT-C Answer Date Recorded Q1: How often do you have a drink containing alcohol? Never 01/15/2024 Q2: How many drinks containi ng alcohol do you have on a typical day when you are drinking? Patient does not drink Q3: How often do you have si x or more drinks on one occasion? 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 documented in this encounter Plan of Treatment Not on file documented as of this encounter Visit Diagnoses Not on filedocumented in this encounter Care Teams Boiler Helper Relationship Specialty Start Date End Date Unknown, Notinfile PCP - General 01/17/24 documented as of this encounter
--- OUTSIDE RECORDS SUMMARY | 2024-08-16 21:38 | XMS_ITS | Encounter Summary ---
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
--- OUTSIDE RECORDS SUMMARY | 2024-08-16 21:38 | XMS_ITS | Encounter Summary ---
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
--- OUTSIDE RECORDS SUMMARY | 2024-08-16 21:38 | XMS_ITS | Encounter Summary ---
Author Organization [facility] Healthcare Address [address] [place] [address] Care Team Providers Care Electrical Engineering Manager Name Role Phone Tg Melgar MD Primary Care Provider [phone] Encounter Details Date Type Department Care Team (Late st Contact Info) Description 07/25/2008 6:45 PM QA INTERN - 07/25/2008 7:43 PM QA INTERN Hospital Encounter [facility] Jose Judge MD [address] [address] Tg Melgar MD [address] [place], [place] [id number] Urticaria; Acute bronchitis Social History Tobacco Use Types Packs/Day Years Used Date Smoking Tobacco: Never Assessed Comments Unknown Sex and Gender Information Value Date Recorded Sex Assigned at Not on file Legal Sex Female 6:01 PM QA INTERN Gender Identity Not on file Sexual Orientation Not on file documented as of this encounter Plan of Treatment Not on file documented as of this encounter Visit Diagnoses Diagnosis Urticaria Unspecified urticaria Acute bronchitis documented in this encounter Care Teams Electrical Engineering Manager Relationship Specialty Start Date End Date Tg Melgar MD [address] [place], [place] [id number] PCP - General 10/06/07 04/10/18 documented as of this encounter
--- OUTSIDE RECORDS SUMMARY | 2024-08-16 21:38 | XMS_ITS | Encounter Summary ---
Author Organization [facility] Healthcare Address [address] [place] [address] Care Team Providers Care Sheetmetal Trades Worker Name Role Phone Unknown, Notinfile Primary Care Provider Unavail able Reason for Visit * Auth/Cert (Routine) Specialty Diagnoses / Procedures Referred By Isaiah leo Referred To Contact Diagnoses Encounter for sterilization Unwanted fertility Encounter for sterilization [Z30.2] Unwanted fertility [Z30.09] Procedures DE LIGATE FALLOPIAN TUBE LAPAROSCOPIC BILATERAL SALPINGECTOMY Referral ID Status Reason Start Date Expiration Date Visits Re quested Visits Authorized [id number] 1 1 Encounter Details Date Type Department Care Team (Latest Contact Info) Description 01/27/2024 8:27 AM CDT - 01/27/2024 1:59 PM CDT Hospital Encounter [facility] [address] [place] [id number] Scotty Kelly MD [address] [facility] [place] [address] [place], [place] [id number] Lu Rooney MD [address] [facility] [id number] [place] [address] Encounter for sterilization; Unwanted fertility Discharge Disposition: Discharge to home or self [...] on file 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 Follow Up: * It is important to keep your scheduled follow up appointment with your MD. * If you cannot keep your scheduled appointment, please call the office. * Attachments The following attachments cannot be sent through Care Everywhere. * [facility] PATHWAY TO EXCELLENT CARE AFTER SURGERY documented [...] Preoperative Evaluation Record Evaluation type/location: [facility]AP from [facility] Planned procedure site: [facility] OR (Pod 4) Date: 01/16/24 Anesthesia Evaluation [...] artery stent Cardiovascular Pertinent negatives: CAD ; CA ; CABG ; valvular heart disease; valve [...] provided by telephone and electronically sent via Masabi. Patient verbalized understanding of instructions. Blood bank [...] (ABILIFY) 10 mg tablet 01/14/2024 12/18/23 -- ProviderMathew MD ibuprofen 200 mg tab/cap Past Week [...] Medication protocol when under care of a PEAT SHREDDER TENDER Planned anesthesia: General Team communication plan: oral ET tube Induction: Induction: intravenous. Postoperative Plan: Postoperative administration opioids intended. Informed Consent: Discussed plan with PEAT SHREDDER TENDER. Anesthesia plan and risks discussed with patient [...] placed in the dorsal lithotomy position in [facility]. She underwent exam under anesthesia with findingsas above. The patient was prepared and draped in the normal sterile fashion. A bivalve speculum wasthen placed in the patient???s vagina and a Hulka uterine manipulator was applied to the anterior [...] entire procedure. * Pre-Procedure Instructions - Isadora Erwin, SAMANTHA - 01/16/2024 4:53 PM CDT [facility] CPAP Clinic Location: [facility] The night before your surgery: * Do [...] going to be admitted after surgery at [facility], COVID testing may be performed on the day of surgery, even if you are up to date on your COVID-19 vaccine. * If having surgery at [facility], you may want to bring a credit card if you want to use our Mobile Pharmacy for your discharge medications. Mobile pharmacy is not available at [facility], the [facility], or the [facility] for [facility]. Outpatient Surgery: * You must have a [...] tools to help you quit or call 0-449-XIRBDDX ( ). Visit Smokefree.gov for more information. [...] Planning Perioperative Nursing Note Telephone Preoperative Evaluation ([facility]) - TELEPHONE ONLY, NO PHYSICAL EXAM Date: [...] provided Information Provided on Healthcare Directives: Yes Communication/Portfolio Mgr Needs Communication Needs: Glasses Does caregiver's language differ from patient's?: No Assistive Devices/DME: Eyeglasses Discharge Planning Type of Residence: Private residence Living Arrangements: Spouse/significant other, Children Support Systems: Family members, Spouse/significant other Assistance Needed: Aunt to provide discharge transportation Patient expects to be discharged to:: 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 You should leave your valuables and any jewelry at home. No metal or piercings are allowed in the operating room. You should bring your insurance card, a photo ID (example: Area Field Manager's License) and a method of payment for [...] Chart. If you are having surgery at [facility], please arrive on the day of surgery [...] Pathway to Excellent Care by the followinglink: [email or web address] How To Prepare Your Skin For Surgery [...] Remove nail coverings, artificial nails and nail micronesian. Place clean linens on your bed the [...] questions, please call the CPAP Staff at [phone], Saturday-Saturday 8am-4:30pm. All patients should read the below section: COVID 19 Updates & Visitor Policy: Please access [email or web address] for the most updated information. Information on [facility] & the [facility]: Please view [email or web address] (Patient & Visitor Information) for additional details regarding Advanced Directive forms, AWARE, directions, parking information, lodging, Internet access, dining and more. Information on [facility] or [facility] ([facility]): Please view [email or web address] (Patient and Visitor Information) for parking/directions and more. For MyChart information, to activate account or password recovery, please go to [email or web address] or call [phone] (toll-free: [phone]), Sat- Saturday 8am-5pm. Information for Suicide Prevention: National Suicide Prevention Lifeline (0-345- 238-GHSS (9461)) or call or text Savings.com. Chat resources: DealTraction.PapayaMobile. Surgery Times: For patients having surgery @ [facility] for [facility] or [facility] ([facility]), if your surgeon's office has not notified you of your surgery time by NOON THE BUSINESS DAY BEFORE your surgery, please call [phone] and ask for your surgeon's office Dr. Rooney [facility] ([facility]) does not provide arrival times for the [...] Case length - Case message to Lilia [email or web address] Per Lilia via case message, case to be rescheduled. [email or web address] Per Lilia via case message, Please place this case back in the depot. [email or web address]- Changed location per Lilia via case msg.@0750- Sent msg to Lilia about case being on pod 4.@0748- MISSING [facility] EMAIL SENT. EF POCT HCG, URINE Routine 01/27/2024 8:48 AM CDT documented in this encounter Results * Surgical pathology (01/27/2024 11:53 AM CDT) Tissue (Fallopian tube, non-tumor) 01/27/2024 11:53 AM CDT Narrative PATHOLOGY [facility] - 01/29/2024 11:46 AM CDT EPIC results best viewed via link to PDF [facility] [place] [address] Note to Patients: This report may contain [...] Gender: ??F : ??2000 (Age: 23) Address: ??[address] [place] [address] ??[id number] Hospital #: ??[id number] Taken:01/27/2024 Received:01/27/2024 Reported: 01/29/2024 Patient Type: BJ SDS ?? Service: Surgery Location: Physician(s): ??Chris [...] By ??Maryam Spencer MD PhD 01/29/2024 11:46:19 Krishna Lama M.D. History: The patient is a [...] axxm/01/27/2024 14:49 PA(s): Sylvie Tellez MS, JOHN ([facility])CM By this signature, I attest that the above diagnosis is based upon my personal examination of the slides(and/or other material). Addenda/Procedures The performance characteristics of some immunohistochemical stains, fluorescence in-situ hybridization tests and immunophenotyping by flow cytometry cited in this report (if any) were determined by the Surgical Pathology and Flow Cytometry Departments at [facility] as part of an ongoing quality supervisor program and in compliance with federally mandated [...] Surgical Pathology and Flow Cytometry Departments of [facility]. ??It has not been cleared or approved by the U. S. Food and Drug Administration. IMAGES AND SCANNED DOCUMENTS, IF INCLUDED, ONLY VIEWABLE IN PDF VERSION OF REPORT Lu Rooney MD LAB PATHOLOGY ORDERABLE S Final Result PATHOLOGY [facility] 3rd Floor [place], [place] [phone] * POCT hCG, urine (01/27/2024 8:48 AM CDT) HCG, ur, POC Negative Negative Lot Number [id number] QC Backgroud Clear Acceptable QC Control Line Acceptable Urine 01/27/2024 8:48 AM CDT Lala Martines MD POINT OF CARE TEST [...] Given 01/27/2024 12:51 PM CDT 1,000 mg diphenhydrAMINE (BENADRYL) 50 mg/mL injection 12.5 mg [...] When able to tolerate PO., Indications: PainIndications:Pain documented in this encounter Discontinued Medications Medication [...] Continuous, Starting on Sat01/27/24 at 0915, Pre-Op 0856 (New Bag - Prov ider: Maycol Ordoñez RN)1055 (Rate/Dose Verify - Provider: Bobbi Douglas MD)1141 (Paused - Provider: Bobib Douglas MD - Comment: Switch to gravity)1142 [...] Count Last Ordered Date First Ordered Date BUPivacaine (MARCAINE) 0.25 % (2.5 mg/mL) preservative free injection 1 01/27/2024 Carrier Fluids for Secondary Infusion - 0.9% [...] 1 01/27/2024 ondansetron (ZOFRAN) injection 4 mg 01/26 oxyCODONE (ROXICODONE) tablet 5 mg 1 2023 sodium chloride 0.9% flush 0.5-20 mL 1 01/10 sodium chloride 0.9% irrigation 1 4 Discharge Count Last Ordered Date First Orde red Date DISCHARGE PATIENT 1 01/27/2024 documented in this encounter Care Teams Sheetmetal Trades Worker Relationship Specialty Start Date End Date Unknown, Notinfile PCP - General 01/17/24 documented as of this encounter
--- OUTSIDE RECORDS SUMMARY | 2024-08-16 21:38 | XMS_ITS | Encounter Summary ---
Author Organization [facility] Address [address] [place] [address] Care Team Providers Care Leather Goods Sales Representative Name Role Phone No, Physician Primary Care Provider [phone] Encounter Details Date Type Department Care Team (Late st Contact Info) Description 11/20/2018 9:44 AM CDT Anesthesia Event [facility] [address] [place] [address] Ellie Ott MD PhD [address] [place] [id number] Anesthesia Record Procedure Summary Procedure Name Responsible Anesthesiologist Anesthesia Start Time Anesthesia Stop Time Labor Analgesia Ellie Ott MD PhD 11/20/18 09 44 11/20/18 1830 Events Date Time Event Comment 11/20/2018 0934 0944 An Start 0946 Time out - Regional 0946 Face Time 0946 Epidural Placed 1218 Face Time 1218 an lauren now Called to evalu ate patient for right sided window . Patient states she has right sided pain and right leg discomfort since epidural placement. Sat patient up, examined catheter depth, dressing, etc. Nothing suspicious noted. Motor strength intact bilaterally. Level determined with alcohol swab temperature testing. Level approx T10 bilaterally. Advised patient to lie on right, gave 6ml bolus of Bupiv 0.125. Increased rate from 10 to 12 ml/hr. Will reassess. If leg pain persists or progresses, and/or if window not resolving then epidural may need evaluation for being replaced. Patient did voice that discomfort was improving. 1405 Face Time 1531 Face Time 1630 Handoff to RN I completed my handoff to the receiving nurse during which we: 1. Patient identified 2. Responsible provider identified 3. Pertinent medical history reviewed 4. Procedure type and surgical course discussed 5. Intraoperative anesthetic management and any significant issues discussed 6. Expectations and concerns for postop period discussed 7. Questions solicited from receiving nurse 8. Patient disposition at the time of handoff: No value filed. 1829 An Stop Meds Name Total fentaNYL 100 mcg fentaNYL-bupivacaine preserv ative free in 0.9% sodium chloride 2 mcg/mL- 0.1 % casette (premix) 87.67 mL bupivacaine (MARCAINE) 2.5 mL in sodium chloride 0.9% 10 mL epidural 6 mL lidocaine 1 % PF 9 mL epinePHRINE 1:200,000 - lidocaine 2 % PF 5 mL * Agents No agents on file. * Blood No blood administrations on file. Lines, Drains, and Airways Type Details Placement Removal Peripheral IV Placement Date: 11/19/18; Placement Time: 183; Catheter Size: 18 G; Orientation: Anterior, Left; Location: Forearm; Site Prep: Chlorhexidine; Inserted by: Johnny RN; Insertion Attempts: 1; Patient Tolerance: Tolerated well; Removal Date: 11/21/18; Removal Time: 1645 11/19/18 183 by April Turner RN 11/21/18 164 by Dimple Bhagat RN Epidural Placement Date: 11/20/18; Placement Time: 0932 (created via procedure documentation); 11/20/18; 201911/20/18 0932 by Ellie Ott MD PhD 11/20/182019 by Joanne Barajas RN Urethral Catheter Placement Date: 11/20/18; Placement Time: 104; Inserted by: ROSIE Haynes; Type: Double-lumen, Latex; Size: 16 Fr.; Balloon Size: 10 mL; Urine Returned: Yes; Removal Date: 11/20/18; Removal Time: 1516 11/20/18 1045 by Evangelina Carpenter RN 11/20/18 1516 by Evangelina Carpenter RN documented in this [...] on file 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 Anesthesia Post Evaluation Patient location during evaluation: floor Patient participation: complete - patient participated Level of consciousness: fully awake Pain score: 0 Pain management: adequate Airway patency: adequate Anesthetic complications: no Cardiovascular status: acceptable Respiratory status: acceptable Hydration status: acceptable Pt is: normothermic Nausea/Vomiting status: none * Anesthesia Procedure Notes - Ellie Ott MD PhD - 11/20/2018 9:46 AM CDTAssociated Order(s): Epidural Block Epidural Block Patient location: L&D Start time: 11/20/2018 9:32 AM End time: 11/20/2018 9:46 AM Reason for block: labor analgesia Staff: Placed by: Anesthesiologist: Ellie Ott MD PhD Procedure prep: Preprocedure checklist: patient identified, procedure contraindications assessed, procedure consentobtained, surgical consent, IV checked, risks, benefits and alternatives discussed, monitors and equipment checked and timeout performed Patient Position: sitting Procedure performed while patient: awake Monitoring: ECG, oximetry and blood pressure Prep solution: chlorhexadine/alcohol PPE: provider hat/mask, sterile gloves and sterile drape Skin infiltrated with lidocaine 1%: yes Epidural: Approach: midline Imaging guidance used: no Location: L3-4 Number of attempts:1 Epidural needle: Injection technique: ELISSA saline Needle type: Tuohy Needle gauge: 18 G Needle length: 9 cm Loss of resistance: 5 cm Catheter: Catheter type: multi-orifice. Catheter at skin depth: 11 cm Negative aspiration of blood: no Negative aspiration of CSF: no Test dose: negative. Assessment: Sensory level - left: full eval pending Sensory level - right: full eval pending Events: patient tolerated procedure well with no complications * Anesthesia Preprocedure Evaluation - Ellie Ott MD PhD - 11/20/2018 9:33 AM CDT Anesthesia Evaluation Zenia Sparks is a 18 y.o. female * No procedures listed * * No Diagnosis Codes entered * HISTORY Past Medical History Information obtained from: patient and chart. Neurological Neuro/Psych system: negative Cardiovascular Cardiac system: negative Respiratory Pertinent negatives: non-smoker Respiratory system: negative Hepatic / Heme Hepatic/Heme system: negative Gastrointestinal GI system: negative Renal / Renal/ system: negative Musculoskeletal/Pain Musculoskeletal/Pain system: negative Endocrine / Other + Obesity (BMI >30) Functional Capacity Functional capacity: 6-10 METs Day of Surgery assessments + Possibility of assessed - known to be . There is no problem list on file for this patient. Past Medical History: Diagnosis Date ??? Depression History reviewed. No pertinent surgical history. OB History 1 Para Term AB Living SAB TAB Ectopic Multiple Live Births No Known Allergies HOME MEDICATIONS : iron aspgly,[id number] [id number]-qi-dyx-mg capsule sertraline (ZOLOFT) 50 mg tablet Current Facility-Administered Medications: ??? butorphanol (STADOL) 2 mg/mL injection 1 mg, 1 mg, intravenous, Q2H PRN, 1 mg at 11/20/18 0813 ??? diphenhydrAMINE (BENADRYL) injection 25 mg, 25 mg, intravenous, Q6H PRN, 25 mg at 11/19/18 0362 ??? fentaNYL-bupivacaine preservative free in 0.9% sodium chloride 2 mcg/mL- 0.1 % casette (premix), , epidural, Continuous ??? Lactated Ringer's (LR) bolus 1,000 mL, 1,000 mL, intravenous, Once ??? Lactated Ringer's (LR) infusion, 125 mL/hr, intravenous, Continuous, Last Rate: 999 mL/hr at 11/20/18 0915, 999 mL/hr at 11/20/18 0915 ??? lidocaine PF (XYLOCAINE) 10 mg/mL (1 %) preservative free injection 1-30 mL, 1-30 mL, other, Once PRN ??? naloxone (NARCAN) 0.4 mg/mL injection 0.04-0.4 mg, 0.04-0.4 mg, intravenous, Once PRN ??? ondansetron (ZOFRAN) injection 4 mg, 4 mg, intravenous, Q6H PRN ??? oxytocin 30 unit/500 mL (0.06 unit/mL) in sodium chloride 0.9% (premix) solution, 0.5-30 milliunits/min, intravenous, Titrated, Last Rate: 26 mL/hr at 11/20/18 0500, 26 milliunits/min at [id number] ??? sodium chloride 0.9% bolus 500 mL, 500 mL, intravenous, PRN ??? sodium chloride 0.9% flush 0.5-20 mL, 0.5-20 mL, intra-catheter, Q8H AGATHA ??? sodium chloride 0.9% flush 0.5-20 mL, 0.5-20 mL, intra-catheter, PRN ??? sodium chloride 0.9% flush 0.5-20 mL, 0.5-20 mL, intra-catheter, Q8H AGATHA ??? sodium chloride 0.9% flush 0.5-20 mL, 0.5-20 mL, intra-catheter, PRN Social History Tobacco Use Smoking Status Current Every Day Smoker ??? Packs/day: 0.25 Smokeless Tobacco Never Used Substance and Sexual Activity Alcohol Use Never ??? Frequency: Never Substance and Sexual Activity Drug Use Not Currently ??? Types: Marijuana Comment: before Family History Problem Relation Age of Onset ??? Thyroid disease Mother ??? Aneurysm Father PAT Physical Exam Vitals: 11/20/18 0746 11/20/18 0800 11/20/18 0816 BP: 152/91 126/69 135/91 Pulse: 106 85 93 Temp: PT: No results found for requested labs within last 720 hours. INR: No results found for requested labs within last 720 hours. APTT: No results found for requested labs within last 720 hours. Hgb A1C: No results found for requested labs within last 720 hours. CBC RBC: 11/19/2018: 3.17 M/cumm* RDW: No results found for requested labs within last 720 hours. MCHC: 11/19/2018: 34.1 g/dL MCH: 11/19/2018: 29.3 pg MCV: 11/19/2018: 86.1 fL Hct: 11/19/2018: 27.3 %* Hgb: 11/19/2018: 9.3 g/dL* WBC: 11/19/2018: 14.5 K/cumm* MPV: 11/19/2018: 10.2 fL Platelets: 11/19/2018: 266 K/cumm RDW CV: 11/19/2018: 12.3 % RDW Sd: 11/19/2018: 39.0 fL BMP Glucose: 11/19/2018: 100 mg/dL Calcium: 11/19/2018: 8.7 mg/dL Sodium: 11/19/2018: 135 mmol/L Potassium: 11/19/2018: 3.7 mmol/L CO2: 11/19/2018: 20 mmol/L* Chloride: 11/19/2018: 103 mmol/L BUN: 11/19/2018: 5 mg/dL* Creatinine: 11/19/2018: 0.61 mg/dL STOP-Bang Total Score: 0 DOS Physical Exam Medical history, medications, and allergies reviewed. Attestation: I endorse the findings of the anesthesia pre-evaluation assessment dated: 11/20/2018. Airway Exam: Mallampati: II Cervical ROM: FROM TM distance: normal Jaw ROM: full Cardiovascular Exam: Rate: regular Rhythm: regular Pulmonary Exam: LCTA, bilat EENT Exam: trachea midline Dental Exam: Appears intact Skin Exam: Skin is warm. Turgor is normal. Current state: Patient's current state is cooperative and interactive. Anesthesia Plan ASA 2 Planned anesthesia: Epidural Induction: Induction: intravenous. Postoperative Plan: No plan for postoperative opioid use. No postoperative mechanical ventilation intended. Patient's planned disposition post procedure is Floor. Informed Consent: Discussed plan with MEDICAL SALES CONSULTANT and attending. Anesthesia plan and risks discussed with patient. Consent and Attending signature: I and/or my [...] Associated Diagnosis Comments ANESTHESIA EPIDURAL BLOCK Routine 11/20/2018 9:46 AM CDT Procedure Note - Ellie Ott MD PhD - 11/20/2018 9:46 AM CDTThis note is in progress. Epidural Block Patient location: L&D Start time: 11/20/2018 9:32 AM End time: 11/20/2018 9:46 AM Reason for block: labor analgesia Staff: Placed by: Anesthesiologist: Ellie Ott MD PhD Procedure prep: Preprocedure checklist: patient identified, procedure contraindicationsassessed, procedure consent obtained, surgical consent, IV checked, risks,benefits and alternatives discussed, monitors and equipment checked andtimeout performed Patient Position: sitting Procedure performed while patient: awake Monitoring: ECG, oximetry and blood pressure Prep solution: chlorhexadine/alcohol PPE: provider hat/mask, sterile gloves and sterile drape Skin infiltrated with lidocaine 1%: yes Epidural: Approach: midline Imaging guidance used: no Location: L3-4 Number of attempts:1 Epidural needle: Injection technique: ELISSA saline Needle type: Tuohy Needle gauge: 18 G Needle length: 9 cm Loss of resistance: 5 cm Catheter: Catheter type: multi-orifice. Catheter at skin depth: 11 cm Negative aspiration of blood: no Negative aspiration of CSF: no Test dose: negative. Assessment: Sensory level - left: full eval pending Sensory level - right: full eval pending Events: patient tolerated procedure well with no complications documented in this encounter Visit Diagnoses Not on filedocumented in this encounter Administered Medications Inactive Administered Medications - up to 3 most recent administrations Medication Order MAR Action Action Date Dose Rate Site bupivacaine (MARCAINE) 2.5 mL in sodium chloride 0.9% 10 mL epidural Continuous PRN, Starting on Franca 11/20/18 at 1220, Anesthesia Intra-op New Bag 11/20/2018 12:20 PM CDT 6 mL fentaNYL (SUBLIMAZE) preservative free injection epidural, As needed, Starting on Franca 11/20/18 at 1405, Anesthesia Intra-op Given 11/20/2018 2:05 PM CDT 100 mcg fentaNYL-bupivacaine preservative free in 0.9% sodium chloride [...] 9:44 AM CDT 10 mL/hr 10 mL/hr lidocaine PF (XYLOCAINE) 10 mg/mL (1 %) preservative free injection As needed, Starting on Franca 11/20/18 at 1405, Anesthesia Intra-op Given 11/20/2018 3:35 PM CDT 5 mL Given 11/20/2018 2:05 PM CDT 4 mL lidocaine-EPINEPHrine (XYLOCAINE with EPI) 2 %-1:200,000 preservative free injection As needed, Starting on Franca 11/20/18 at 1654, Anesthesia Intra-op, Indications: Administration of Local AnesthesiaIndications:Administration of Local Anesthesia Given 11/20/2018 4:54 PM CDT 5 mL documented in this encounter Orders Procedures Count Last Ordered Date First Orde red Date Epidural Block 1 11/20/2018 documented in this encounter Care Teams Leather Goods Sales Representative Relationship Specialty Start Date End Date No, Physician PCP - General 10/22/18 11/09/20 documented as of this encounter
--- OUTSIDE RECORDS SUMMARY | 2024-08-16 21:38 | XMS_ITS | Encounter Summary ---
Author Organization 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
--- OUTSIDE RECORDS SUMMARY | 2024-08-16 21:38 | XMS_ITS | Encounter Summary ---
Author Organization [facility] Healthcare Address [address] [place] [address] Care Team Providers Care Negative Retoucher Name Role Phone Unknown, Notinfile Primary Care Provider Unavail able Reason for Visit * Auth/Cert (Routine) Specialty Diagnoses / Procedures Referred By Isaiah leo Referred To Contact Diagnoses Encounter for sterilization Unwanted fertility Encounter for sterilization [Z30.2] Unwanted fertility [Z30.09] Procedures LA LIGATE FALLOPIAN TUBE LAPAROSCOPIC BILATERAL SALPINGECTOMY Referral ID Status Reason Start Date Expiration Date Visits Re quested Visits Authorized [id number] 1 1 Encounter Details Date Type Department Care Team (Late st Contact Info) Description 01/27/2024 10:55 AM CDT Anesthesia Event [facility] Operating [facility] ([facility]) [facility] [place] [address] Sathish Mari MD [address] [place] [address] Nataly Castro NP [address] [facility] [phone] [place] [address] Anesthesia Record Procedure Summary Procedure Name Responsible Anesthesiologist Anesthesia Start Time Anesthesia Stop Time LAPAROSCOPIC BILATERAL SALPINGECTOMY (Abdomen) Sathish Mari MD 01/27/24 1055 01/27/24 1219 Events Date Time Event Comment 01/27/2024 0734 0833 In Preop 1055 An Start 1057 In Room 1059 An Start Data 1102 An Induction The patient was reevaluated immediately before moderate or deep sedation use and before anesthesia induction. 1107 An Intubation 1109 Anesthesia Ready 1118 Proc Start 1128 Incision Start 1206 An Extubation 1208 Proc Fin 1208 Out of Room 1219 Handoff to RN I completed my handoff [...] the time of handoff: No value filed. 1219 An Stop Meds Name Total midazolam PF 2 mg lidocaine (cardiac) syringe 2 % 100 mg propofol 200 mg fentaNYL 100 mcg rocuronium 50 mg phenylephrine 100 mcg/mL 200 mcg ondansetron PF (ZOFRAN) 2 mg/mL injectio n 4 mg glycopyrrolate 0.6 mg neostigmine injection 1 mg/mL 4 mg dexAMETHasone 4 mg/mL 8 mg Lactated Ringer's (LR) infusion 1,000 mL * Agents Name O2% N2O Sevoflurane Inspired Sevoflurane * Blood No blood administrations on file. Lines, Drains, and Airways Type Details Placement Removal Peripheral IV Placement Date: 01/27/24; Placement Time: 0856; Catheter Size: 20 G; Orientation: Anterior, Left; Location: Hand; Site Prep: Chlorhexidine; Technique: Anatomical landmarks; Inserted by: ROSIE Severino; Insertion Attempts: 1; Patient Tolerance: Tolerated well; Removal Date: 01/27/24; Removal Time: 1349 01/27/24 0856 by Maycol Ordoñez RN 01/27/24 1349 by Montse Gabriel RN ETT Placement Date: 01/27/24; Placement Time: 1110 (created via procedure documentation); Mask Ventilation: 1; Technique: Direct laryngoscopy; Type: ETT - single; Single Lumen Tube Size: 7.5 mm; Cuffed: Yes; Laryngoscope: Khushi; Blade Size: 3; Location: Oral; Grade View: Grade I; Insertion Attempts: 1; Placement Verification: Auscultation, Capnometry; Removal Date: 01/27/24; Removal Time: 1206 01/27/24 1110 by Bobbi Douglas MD 01/27/24 1206 by Bobbi Douglas MD Urethral Catheter Placement Date: 01/27/24; Placement Time: 112; Inserted by: Dr Wilson; Type: Double-lumen; Balloon Size: 10 mL; Urine Returned: Yes; Removal Date: 01/27/24; Removal Time: 1200 01/27/24 1122 by Kalli Harper RN 01/27/24 1200 by Kalli Harper RN RETIRED Surgical Site 01/27/24; 1156; Abdomen; Abdomen x 3 trocar sites; 07/14/24 (Retired LDA, Removed/Completed by [facility] with LDA Utility); 1213 (Retired LDA, Removed/Completed by [facility] with LDA Utility) 01/27/24 1156 by Kalli Harper RN 07/14/24 1213 by Discharge Provider, Automatic documented in this encounter Social History Tobacco [...] file 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 Gender Identity Not on file Sexual Orientation Not on file documented as of this encounter OR Notes * Anesthesia Postprocedure Evaluation - Zuleima Singletary MD - 01/27/2024 12:51 PM CDT Patient: Zenia Sparks Procedure Summary Date: 01/27/24 Room / Location: [facility] OR POD 4 ROOM C / [facility] OR POD 4 Anesthesia Start: 1055 Anesthesia Stop: 1219 Procedure: LAPAROSCOPIC BILATERAL SALPINGECTOMY (Abdomen) Diagnosis: Encounter for sterilization Unwanted fertility (Encounter for sterilization [Z30.2]) (Unwanted fertility [Z30.09]) Surgeons: Lu Rooney MD Responsible Provider: Sathish Mari MD Anesthesia Type: general ASA Status: 2 Anesthesia Type: general Last vitals BP 112/69 Pulse 67 Temp 36.2 ??C (97.2 ??F) (Temporal) Resp 17 SpO2 96% Anesthesia Post Evaluation Patient location during evaluation: PACU Patient participation: complete - patient participated Level of consciousness: fully awake Pain management: adequate Airway patency: adequate Evidence of recall: no Cardiovascular status: acceptable Respiratory status: acceptable Hydration status: acceptable Pt is: normothermic Nausea/Vomiting status: none No notable events documented. * Anesthesia Procedure Notes - Bobbi Douglas MD - 01/27/2024 11:08 AM CDT Associated Order(s): Airway Airway Patient location: OR Urgency: elective Indications for airway management: anesthesia Difficult airway: no Staff: Supervising provider: Sathish Mari MD Placed by: Resident: Bobbi Douglas MD Emergent airway documentation: Risks and benefits discussed: yes Consent obtained: yes Consent given by: patient Airway prep: Preoxygenated: yes Patient position: sniffing Mask difficulty assessment: 1 - vent by mask Spontaneous ventilation during airway: absent Sedation level during airway: GA Final airway details: Final airway type: endotracheal airway Tube type: ETT ETT size: 7.5 mm Cuffed: yes Technique used for successful ETT placement: direct laryngoscopy Devices/Methods used in placement: stylet Insertion site: oral Blade type: Khushi Blade size: 3 Cormack-Lehane (direct): grade I - full view of glottis Cuff inflated with: air ETT to lips: 19 cm Placement verified by: auscultation and CO2 detection Airway secured with: silk tape Number of attempts: 1 Planned trial extubation: yes * [facility]16/[facility] 4:45 PM CDT Images from the original note were not included. [facility] for Preoperative Assessment and Planning Preoperative Evaluation Record Evaluation type/location: [facility]AP from [facility] Planned procedure site: [facility] CAM OR (Pod 4) Date: 01/16/24 Anesthesia [...] artery stent Cardiovascular Pertinent negatives: CAD ; AL ; CABG ; valvular heart disease; valve [...] provided by telephone and electronically sent via [employer]. Patient verbalized understanding of instructions. Blood bank [...] findings of the anesthesia pre-evaluation assessment dated: 01/16/2024. Airway Exam: Mallampati: I Cervical ROM: FROM TM distance: >4 Cardiovascular Exam: Rate: regular Rhythm: regular Pulmonary Exam: LCTA, bilat EENT Exam: trachea midline Dental Exam: Appears intact Current state: Patient's current state is cooperative. Anesthesia Plan ASA 2 My patient is approved for the Anesthesia Controlled Medication protocol when under care of a VETERINARY MANAGER Planned anesthesia: General Team communication plan: oral ET tube Induction: Induction: intravenous. Postoperative Plan: Postoperative administration opioids intended. Informed Consent: Discussed plan with VETERINARY MANAGER. Anesthesia plan and risks discussed with patient [...] Name Priority Date/Time Associated Diagnosis Comments ANESTHESIA INTUBATION Routine 01/27/2024 11:08 AM CDT documented in this encounter Results * Airway (01/27/2024 11:08 AM CDT) Narrative Bobbi Douglas MD - 01/27/2024 11:08 AM CDT Bobbi Douglas MD ? 01/27/2024 11:10 AM Airway Patient location: OR Urgency: elective Indications for airway management: anesthesia Difficult airway: no Staff: Supervising provider: Sathish Mari MD Placed by: Resident: Bobbi Douglas MD Emergent airway documentation: Risks and benefits discussed: yes Consent obtained: yes Consent given by: patient Airway prep: Preoxygenated: yes Patient position: sniffing Mask difficulty assessment: 1 - vent by mask Spontaneous ventilation during airway: absent Sedation level during airway: GA Final airway details: Final airway type: endotracheal airway Tube type: ETT ETT size: 7.5 mm Cuffed: yes Technique used for successful ETT placement: direct laryngoscopy Devices/Methods used in placement: stylet Insertion site: oral Blade type: Khushi Blade size: 3 Cormack-Lehane (direct): grade I - full view of glottis Cuff inflated with: air ETT to lips: 19 cm Placement verified by: auscultation and CO2 detection Airway secured with: silk tape Number of attempts: 1 Planned trial extubation: yes us Sathish Mari MD ANESTHESIA ORDERABLES Final Result documented in this encounter Visit Diagnoses Not on filedocumented in this encounter Administered Medications Inactive Administered Medications - up to 3 most recent administrations Medication Order MAR Action Action Date Dose Rate Site dexAMETHasone (DECADRON) 4 mg/mL injection intravenous, Administer over 2 Minutes, As needed, Starting on 01/27/24 at 1132, Anesthesia Intra-op Given 01/27/2024 11:32 AM CDT 8 mg fentaNYL (SUBLIMAZE) preservative free injection intravenous, As needed, Starting on Sat01/27/24 at 1102, Anesthesia Intra-op Given 01/27/2024 11:30 AM CDT 50 mcg Given 01/27/2024 11:02 AM CDT 50 mcg glycopyrrolate (ROBINUL) injection intravenous, Administer over 1 Minutes, As needed, Starting on Sat01/27/24 at 1158, Anesthesia Intra-op Given 01/27/2024 11:58 AM CDT 0.6 mg Lactated Ringer's (LR) infusion 30 mL/hr, intravenous, Continuous, Starting on Sat01/27/24 at 0915, Pre-Op Restarted 01/27/2024 11:42 AM CDT Rate/Dose Verify 01/27/2024 10:55 AM CDT 30 mL/ hr New Bag 01/27/2024 8:56 AM CDT 30 mL/hr 30 mL/hr lidocaine (cardiac) (XYLOCAINE) preservative free injection intravenous, As needed, Starting on Sat01/27/24 at 1102, Anesthesia Intra-op, Indications: Ventricular ArrhythmiasIndications:Ventricular Arrhythmias Given 01/27/2024 11:02 AM CDT 100 mg midazolam (VERSED) 2 mg/2 mL preservative free injection intravenous, Administer over 2 Minutes, As needed, Starting on Sat01/27/24 at 1100, Anesthesia Intra-op Given 01/27/2024 11:00 AM CDT 2 mg neostigmine (PROSTIGMIN) injection intravenous, Administer over 3 Minutes, As needed, Starting on Sat01/27/24 at 1158, Anesthesia Intra-op Given 01/27/2024 11:58 AM CDT 4 mg ondansetron (ZOFRAN) injection intravenous, Administer over 2 Minutes, As needed, Starting on Sat01/27/24 at 1157, Anesthesia Intra-op Given 01/27/2024 11:57 AM CDT 4 mg phenylephrine (MAG-SYNEPHRINE) 1 mg/10 mL (100 mcg/mL) in sodium chloride 0.9% (premix) intravenous, As needed, Starting on Sat01/27/24 at 1121, Anesthesia Intra-op Given 01/27/2024 11:24 AM CDT 100 mc g Given 01/27/2024 11:21 AM CDT 100 mcg propofoL (DIPRIVAN) 10 mg/mL IV intravenous, As needed, Starting on Sat01/27/24 at 1102, Anesthesia Intra-op Given 01/27/2024 11:06 AM CDT 80 mg Given 01/27/2024 11:02 AM CDT 120 mg rocuronium (ZEMURON) injection intravenous, As needed, Starting on Sat01/27/24 at 1105, Anesthesia Intra-op Given 01/27/2024 11:05 AM CDT 50 mg documented in this encounter Care Teams Negative Retoucher Relationship Specialty Start Date End Date Unknown, Notinfile PCP - General 01/17/24 documented as of this encounter
--- OUTSIDE RECORDS SUMMARY | 2024-08-16 21:38 | XMS_ITS | Encounter Summary ---
Author Organization [facility] Healthcare Address [address] [place] [address] Care Team Providers Care Confectionery Maker Name Role Phone No, Physician Primary Care Provider [phone] Encounter Details Date Type Department Care Team (Late st Contact Info) Description 11/22/2023 Telephone [facility] [address] [facility] 3rd Floor [address] [place] [address] Devin Hauser Social History Tobacco Use Types Packs/Day Years [...] Frequency of Binge Drinking Not on file 0408/2020 Personal Safety Answer Date Recorded Getting School Help Needed Not on file 09/21 Comments Unknown Sex and Gender Information Value Date Recorded Sex Assigned at Not on file 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 If pt calls reference message below for scheduling. Thanks. ----- Message from Lizy Templeton MD sent at 11/20/2023 12:27 PM CDT ----- Regarding: schedule patient for appointment Hi there, I have a patient who has already had her pre-op appointment for a tubal. Unfortunately, we signed the [place] tubal consents, and she needs to sign the [place] tubal consents. If we're able to get her into clinic next week that would be ideal so that she can get the clock restarted on her 30 days! She says T and Th mornings are best for her. Unfortunately, I don't have clinic then, but if there's anyone's schedule you could add her to next week, I would appreciate it!! Best, Lizy documented in this encounter Plan of Treatment Not on file documented as of this encounter Visit Diagnoses Not on filedocumented in this encounter Care Teams Confectionery Maker Relationship Specialty Start Date End Date No, Physician PCP - General 11/11/20 01/16/24 documented as of this encounter
--- OUTSIDE RECORDS SUMMARY | 2024-08-16 21:38 | XMS_ITS | Encounter Summary ---
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 Pt given phone # for clinic if any additional questions. Lizy Templeton MD Obstetrics & Gynecology, PGY-2 documented in this encounter Plan of Treatment Not on file documented as of this encounter Visit Diagnoses Not on filedocumented in this encounter Care Teams Merchandise Displayer Relationship Specialty Start Date End Date No, Physician PCP - General 11/11/20 01/16/24 documented as of this encounter
--- OUTSIDE RECORDS SUMMARY | 2024-08-16 21:38 | XMS_ITS | Encounter Summary ---
Author Organization [facility] Healthcare Address [facility] [place] [address] Care Team Providers Care Ball Assembler Name Role Phone No, Physician Primary Care Provider [phone] Reason for Visit * Reason Comments Rupture of Membranes Encounter Details Date Type Department Care Team (Latest Contact Info) Description 11/07/2020 4:20 PM CDT - 11/07/2020 5:30 PM CDT Hospital Encounter [facility] [address] [place] [address] Dunia Phillips MD [address] [place] [address] [place] [address] Discharge Disposition: Discharge to home or self care Social History Tobacco Use Types Packs/Day Years Used Date Smoking Tobacco: Every Day Cigarettes Smokeless Tobacco: Never Alcohol Use Standard Drinks/Week Comments Never 0 (1 standard drink = 0.6 oz pur e alcohol) AUDIT-C Answer Date Recorded Q1: How often do you have a drink containing alc ohol? 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 Gender Identity Not on file Sexual Orientation Not on file documented as of this encounter Last Filed Vital Signs Vital Sign Reading Time Taken Comments Blood Pressure 116/70 11/07/2020 5:13 PM CDT Pulse 108 11/07/2020 5:13 PM CDT Temperature 36.6 ??C (97.8 ??F) 11/07/2020 4:47 PM CD T Respiratory Rate 18 11/07/2020 4:47 PM CDT Oxygen Saturation - - Inhaled Oxygen Concentration - - Weight - - Height - - Body Mass Index - - documented in this encounter Discharge Diagnoses Diagnosis Encounter for supervision of normal , unspecified, unspecified trimester - ENCOUNTER FOR SUPERVISION OF NORMAL , UNSPECIFIED, UNSPECIFIED TRIMESTER documented in this encounter Discharge Instructions * Attachments The following attachments cannot be sent through Care Everywhere. * at 35 to 38 Weeks (Discharge Care) (Martiniquais) documented in this encounter Medications at Time of Discharge ferrous sulfate 325 mg (65 mg of elemental iron) tabletIndication s:Iron Deficiency Anemia Take 1 tablet (325 mg total) by mouth daily with breakfast 30 tablet 11 11/12/2020 2 docusate sodium (COLACE) 100 mg capsuleIndicatio ns:constipation, Stool Softener Take 1 capsule (100 mg total) by mouth 2 (two) times a day 30 capsule 1 11/21/2018 1 HYDROcodone-acet aminophen (NORCO) 5-325 mg per tabletIndication s:Pain Take 1 tablet by mouth every 4 (four) hours as needed for pain 20 tablet 11/12/2020 4 ibuprofen (ADVIL,MOTRIN) 600 mg tabletIndication s:Cramps Take 1 tablet (600 mg total) by mouth every 6 (six) hours as needed for pain 30 tablet 1 11/12/2020 4 PNV cmb 64-puvu-VY-omega -3-dha 90-4-291-200 mg combo pack Take by mouth 1 sertraline (ZOLOFT) 50 mg tablet Take 50 mg by mouth daily 1 documented as of this encounter Discharge Disposition Disposition Code Departure Means Destination Discharge to home or self care documented in this encounter Plan of Treatment Not on file documented as of this encounter Procedures Procedure Name Priority Date/Time Associated Diagnosis Comments PAMG-1 PROTEIN MARKER (ROM) STAT 11/07/2020 4:54 PM CDT URINALYSIS AND REFLEX TO MICROSCOPIC AND CULTURE STAT 11/07/2020 4:54 PM CDT URINALYSIS, MICROSCOPIC ONLY STAT 11/07/2020 4:54 PM CDT documented in this encounter Results * (ABNORMAL) Urinalysis, microscopic only (11/07/2020 4:54 PM CDT) WBC, ur 6-10(A) 0 - 5 /HPF [facility] ([place]) RBC, ur 3-5(A) 0 - 2 /HPF [facility] ([place]) Epithelial cells, squamous, ur 21-50(A) 0 - 5 /HPF [facility] ([place]) Bacteria, ur Trace(A) [facility] ([place]) Mucous, ur Present(A) [facility] ([place]) Calcium oxalate crystals, ur 2+(A) [facility] ([place]) Culture Reflex Comment Reflex conditions for urine culture (WBC >10) not met. [facility] ([place]) Urine 11/07/2020 4:54 PM CDT 11/07/2020 4:58 PM CDT us Dunia Phillips MD LAB URINE ORDERABLES [facility] al Result [facility] ([place]) [address] [facility] Department [place] [address] * (ABNORMAL) Urinalysis reflex to microscopic and culture Urine (11/07/2020 4:54 PM CDT) Color, ur Yellow Yellow [facility] ([place]) Clarity, ur Turbid(A) Clear [facility] ([place]) Specific gravity, ur 1.025 1.010 - 1.025 [facility] ([place]) pH, urine 6.5 [facility] ([place]) Protein, ur ql 1+(A) Negative [facility] ([place]) Glucose, ur ql Negative Negative [facility] ([place]) Ketones, ur Negative Negative [facility] ([place]) Bilirubin, ur Negative Negative [facility] ([place]) Blood, ur Negative Negative [facility] ([place]) Urobilinogen, ur <2.0 <2.0 mg/dL [facility] ([place]) Nitrite, ur Negative Negative [facility] ([place]) Leukocyte esterase, ur 2+(A) Negative [facility] ([place]) UA reflex comment Reflex to microscopic UA will be performed. [facility] ([place]) Urine 11/07/2020 4:54 PM CDT 11/07/2020 4:58 PM CDT Narrative [facility] ([place]) - 11/07/2020 5:06 PM CDT ?? Urine pH is affected by diet, medications, systemic acid-base disturbances, and renal tubular function. ??pH may affect urinary stone formation. ??For example, urine pH below 6.0 may help reduce the tendency for calcium phosphate stones and pH greater than 6.0 may reduce the tendency for uric acid stone formation. Source: [place] [employer]. Last revised 08-22-2017 us Dunia Phillips MD LAB MICROBIOLOGY - GENER AL ORDERABLES Final Result Performing Organization Address City/[facility]/ZIP Co de Phone Number [facility] [address] [facility] [place] [address] * ROM Plus (IGFBP-1/AFP) (11/07/2020 4:54 PM CDT) IFG Binding Protein-1 / AFP Negative [facility] ([place]) Swab 11/07/2020 4:54 PM CDT 11/07/2020 4:58 PM CDT us Dunia Phillips MD LAB BODY FLUIDS AND STOO LS ORDERABLES Final Result [facility] ([place]) [address] [facility] [place] [address] documented in this encounter Visit Diagnoses Not on filedocumented in this encounter Discontinued Medications Medication Sig Discontinue Reason Start Date End Da te HYDROcodone-acetaminophe n (NORCO) 5-325 mg per tabletIndications:Pain Take 1 tablet by mouth every 4 (four) hours as needed for pain Therapy completed 11/21/2018 11/07/2020 ibuprofen (ADVIL,MOTRIN) 600 mg tabletIndications:Cramps Take 1 tablet (600 mg total) by mouth every 6 (six) hours as needed for pain Therapy completed 11/21/2018 11/07/2020 documented as of this encounter Historical Medications * This list may reflect changes made after this encounter. PNV cmb 62-figw-FF-omega- 3-dha 16-3-335-200 mg combo pack Take by mouth 11/12/2020 added in this encounter Care Teams Ball Assembler Relationship Specialty Start Date End Date No, Physician PCP - General 10/22/18 11/09/20 documented as of this encounter
--- OUTSIDE RECORDS SUMMARY | 2024-08-16 21:38 | XMS_ITS | Encounter Summary ---
Author Organization [facility] Healthcare Address [address] [place] [id number] Care Team Providers Care Supervisor Home Economics Name Role Phone No, Physician Primary Care Provider [phone] Reason for Visit * Reason Comments Hypertension Encounter Details Date Type Department Care Team (Latest Contact Info) Description 11/05/2018 3:18 PM CDT - 11/05/2018 4:35 PM CDT Hospital Encounter [facility] [address] [place] [address] Dunia Phillips MD [address] [place] [address] [place] [address] Discharge Disposition: Discharge to home or self [...] on file 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 Gender Identity Not on file Sexual Orientation Not on file documented as of this encounter Last Filed Vital Signs Vital Sign Reading Time Taken Comments Blood Pressure 135/85 11/05/2018 4:19 PM CDT Pulse 111 11/05/2018 4:19 PM CDT Temperature 37.4 ??C (99.4 ??F) 11/05/2018 3:37 PM CD T Respiratory Rate 16 11/05/2018 3:37 PM CDT Oxygen Saturation - - Inhaled Oxygen Concentration - - Weight 74.8 kg (165 lb) 11/05/2018 3:34 PM CDT Height 154.9 cm (5' 1 ) 11/05/2018 3:34 PM CDT Body Mass Index 31.18 11/05/2018 3:34 PM CDT documented in this encounter Discharge Instructions * Discharge Instructions* Ramya Willoughby RN - 11/05/2018 4:31 PM CDT Follow up with in one week. * Attachments The following attachments cannot be sent through Care Everywhere. * Preeclampsia (General Information) (Japanese) documented in this encounter Medications at Time of Discharge iron aspgly,[id number] A-Ca-suc [id number] ij-tw-grd-mg capsule Take by mouth 11/22/2018 sertraline (ZOLOFT) 50 mg tablet Take 50 mg by mouth daily 11/12/2020 documented as of this encounter Discharge Disposition Disposition Code Departure Means Destination Discharge to home or self care documented in this encounter Nursing Notes * Ramya Willoughby RN - 11/05/2018 4:48 PM CDT Reactive EFM. Blood pressures and labs called to . OK to dc home, follow up in one week.Patient verbalized understanding of instructions and when to return to L&D. Ramya Willoughby RN * Montse Stafford RN - 11/05/2018 3:25 PM CDT Pt ambulatory to OB unit for PIH evaluation. Pt was seen at Dr. Phillips' office and was found to have elevated BP, 140's/80's per Dr Phillips. EFM/Thayne applied and tracing. Pt reports intermittent blurry vision for a few weeks. Denies other complaints. documented in this encounter Plan of Treatment Not on file documented as of this encounter Procedures Procedure Name Priority Date/Time Associated Diagnosis Comments EGFR STAT 11/05/2018 3:54 PM CDT DIFFERENTIAL AUTO STAT 11/05/2018 3:5 4 PM CDT CBC WITH AUTO DIFFERENTIAL STAT 11/05/2018 3:54 PM CDT URIC ACID STAT 11/05/2018 3:54 PM CDT LACTATE DEHYDROGENASE STAT 11/05/2018 3:54 PM CDT COMPREHENSIVE METABOLIC PANEL STAT 11/05/2018 3:54 PM CDT documented in this encounter Results * eGFR (11/05/2018 3:54 PM CDT) eGFR 147 mL/min/1.7 3 m2 [facility] ([place]) Comment: Interpretive Data Reference Interval Normal ?>/= 90 mL/min/1.73m2 Mildly decreased* ? 60 - 89 mL/min/1.73m2 Mildly to moderately decreased ?45 - 59 mL/min/1.73m2 Moderately to severely decreased ??30 - 44 mL/min/1.73m2 Severely decreased ?15 - 29 mL/min/1.73m2 Kidney Failure ?< 15 ??mL/min/1.73m2 *Relative to young adult level If -Dutch multiply value by 1.16. Estimated glomerular filtration [...] was last reviewed 2016. Blood specimen (specimen) 11/05/2018 3:54 PM CDT 11/05/2018 4:00 PM CDT Narrative [facility] ([facility]) - 11/05/2018 4:21 PM CDT us Dunia Phillips MD LAB BLOOD ORDERABLES Fin al Result [facility] ([place]) 1 [facility] [place] [address] * (ABNORMAL) Differential, auto (11/05/2018 3:54 PM CDT) Neutrophil abs 11.2(H) 1.7 - 6.5 K/cumm [facility] ([place]) Imm gran abs 0.3(H) 0.0 - 0.1 K/cumm [facility] ([place]) Lymphocyte abs 1.9 0.8 - 3.3 K/cumm [facility] ([place]) Monocyte abs 1.2(H) 0.2 - 0.8 K/cumm [facility] ([place]) Eosinophil abs 0.2 0.0 - 0.5 K/cumm [facility] ([place]) Basophil abs 0.0 0.0 - 0.1 K/cumm [facility] ([place]) Neutrophil pct 76.1 % [facility] ([place]) Comment: Interpretive Data Percent cell count reference ranges are not reported, since discordance with absolute values may lead to misinterpretation of CBC data. Current Interpretive Data was last revised on 2017. Imm gran pct 1.8 % [facility] ([place]) Comment: Interpretive Data Percent cell count reference ranges are not reported, since discordance with absolute values may lead to misinterpretation of CBC data. Current Interpretive Data was last revised on 2017. Lymphocyte pct 12.8 % [facility] ([place]) Comment: Interpretive Data Percent cell count reference ranges are not reported, since discordance with absolute values may lead to misinterpretation of CBC data. Current Interpretive Data was last revised on 2017. Monocyte pct 8.0 % [facility] ([place]) Comment: Interpretive Data [...] last revised on 2017. Blood specimen (specimen) 11/05/2018 3:54 PM CDT 11/05/2018 4:00 PM CDT Narrative [facility] ([facility]) - 11/05/2018 4:02 PM CDT us Dunia Phillips MD LAB BLOOD ORDERABLES Fin al Result Performing Organization Address City/[facility]/ZIP Co de Phone Number [facility] ([place]) 1 [facility] [email or web address] [place] [address] * Lactate dehydrogenase (LD) (11/05/2018 3:54 PM CDT) Lactate dehydrogenase (LDH) 175 100 - 250 Units/L [facility] ([place]) Blood specimen (specimen) 11/05/2018 3:54 PM CDT 11/05/2018 4:00 PM CDT Narrative [facility] ([place]) - 11/05/2018 4:21 PM CDT us Dunia Phillips MD LAB BLOOD ORDERABLES Fin al Result [facility] ([place]) 1 [facility] [place] [address] * Uric acid (11/05/2018 3:54 PM CDT) Uric acid 4.0 2.5 - 7.0 mg/dL [facility] ([place]) Blood specimen (specimen) 11/05/2018 3:54 PM CDT 11/05/2018 4:[address] [facility] ([place]) - 11/05/2018 4:21 PM CDT us Dunia Phillips MD LAB BLOOD ORDERABLES Fin al Result [facility] ([place]) 1 [facility] [place] [address] * (ABNORMAL) Comprehensive metabolic panel (11/05/2018 3:54 PM CDT) Sodium 137 135 - 145 mmol/L [facility] ([place]) Potassium, pl 4.2 3.3 - 4.9 mmol/L [facility] Chloride 104 97 - 110 mmol/L [facility] CO2 20(L) 22 - 32 mmol/L [facility] ([place]) Anion gap 13 2 - 15 mmol/L [facility] BUN 5(L) 8 - 25 mg/dL [facility] Creatinine 0.43(L) 0.60 - 1.10 mg/dL [facility] Glucose 118 70 - 199 mg/dL [facility] ([place]) Comment: Interpretive Data Fasting glucose [...] interpretive data was last revised 2017. Calcium 8.9 8.5 - 10.3 mg/dL [facility] ([place]) Bilirubin, total <0.2 0.1 - 1.2 mg/dL [facility] ([place]) Protein, pl 6.3(L) 6.5 - 8.5 g/dL [facility] ([place]) Albumin 3.1(L) 3.5 - 5.0 g/dL [facility] ([place]) Alk phos 113 70 - 260 Units/L [facility] ([place]) ALT 8 7 - 45 Units/L [facility] ([place]) AST 13 10 - 45 Units/L [facility] ([place]) Blood specimen (specimen) 11/05/2018 3:54 PM CDT 11/05/2018 4:00 PM CDT Narrative [facility] ([place]) - 11/05/2018 4:21 PM CDT us Dunia Phillips MD LAB BLOOD ORDERABLES Fin al Result [facility] ([place]) 1 [facility] [place] [address] * (ABNORMAL) CBC with auto differential (11/05/2018 3:54 PM CDT) WBC 14.7(H) 3.8 - 9.9 K/cumm [facility] ([place]) Hgb 9.3(L) 11.9 - 15.5 g/dL [facility] ([place]) Hct 27.0(L) 35.6 - 45.5 % [facility] ([place]) Plt 226 150 - 400 K/cumm [facility] ([place]) MPV 10.0 9.1 - 12.3 fL [facility] ([place]) RBC 3.05(L) 3.90 - 5.20 M/cumm [facility] ([place]) MCV 88.5 81.3 - 96.4 fL [facility] ([place]) MCH 30.5 27.1 - 33.3 pg [facility] ([place]) MCHC 34.4 32.3 - 35.7 g/dL [facility] ([place]) RDW CV 12.3 11.1 - 14.9 % [facility] ([place]) RDW SD 39.6 35.7 - 48.1 fL [facility] ([place]) NRBC abs 0.00 0.00 - 0.01 K/cumm [facility] ([place]) Blood specimen (specimen) 11/05/2018 3:54 PM CDT 11/05/2018 4:00 PM CDT Narrative [facility] ([place]) - 11/05/2018 4:02 PM CDT us Dunia Phillips MD LAB BLOOD ORDERABLES Fin al Result [facility] ([place]) 1 [facility] [place] [address] documented in this encounter Visit Diagnoses Not on filedocumented in this encounter Historical Medications * This list may reflect changes made after this encounter. sertraline (ZOLOFT) 50 mg tablet Take 50 mg by mouth daily 11/12/2020 added in this encounter Care Teams Supervisor Home Economics Relationship Specialty Start Date End Date No, Physician PCP - General 10/22/18 11/09/20 documented as of this encounter
--- OUTSIDE RECORDS SUMMARY | 2024-08-16 21:38 | XMS_ITS | Encounter Summary ---
Author Organization [facility] Healthcare Address [facility] [place] [address] Care Team Providers Care Gristmill Operator Name Role Phone Unknown, Notinfile Primary Care Provider Unavail able Reason for Visit * Reason Comments Vaginal Bleeding - Encounter Details Date Type Department Care Team (Late st Contact Info) Description 04/11/2018 6:47 PM CDT - 04/12/2018 3:49 AM CDT Emergency [facility] Emergency Department [address] [place] [address] Alexander Morales, DO [address] [place] [address] Vaginal bleeding during (Primary Dx) Discharge Disposition: Discharge to home or self care Social History Tobacco Use Types Packs/Day Years Used Date Smoking Tobacco: Never Assessed Comments Yes Sex and Gender Information Value Date Recorded Sex Assigned at Not on file 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 Gender Identity Not on file Sexual Orientation Not on file documented as of this encounter Last Filed Vital Signs Vital Sign Reading Time Taken Comments Blood Pressure 108/63 04/12/2018 2:35 AM CDT Pulse 85 04/12/2018 2:35 AM CDT Temperature 37.1 ??C (98.7 ??F) 04/11/2018 11:35 PM C DT Respiratory Rate 16 04/12/2018 2:35 AM CDT Oxygen Saturation 98% 04/12/2018 2:35 AM CDT Inhaled Oxygen Concentration - - Weight 56.7 kg (125 lb) 04/11/2018 7:13 PM CDT Height 154.9 cm (5' 1 ) 04/11/2018 7:13 PM CDT Body Mass Index 23.62 04/11/2018 7:13 PM CDT Body Mass Index Percentile 72.29% 04/11/2018 7:1 3 PM CDT Growth Chart: [facility] (Girls, 2- 20 Years) documented in this encounter Discharge Instructions * Discharge Instructions* Alexander Morales, - 04/12/2018 3:37 AM CDT Follow up with your OB-TOW MATE documented in this encounter Discharge Disposition Disposition Code Departure Means Destination Discharge to home or self care documented in this encounter ED Notes * Alexander Morales, - 04/11/2018 11:21 PM CDT HPI Chief Complaint Patient presents with ??? Vaginal Bleeding - HPI 10:19 AM Zenia Sparks is a 17 y.o. female (unknown gestation period) presenting to the ED c/o vaginal spotting (bright red blood) which began today at 4:00 PM. Per pt she has no pain atthis time. Pt states she noticed the blood when wiping after using the bathroom. LMP was 02/18/18. Pt has an appointment with OBGYN on 04/28/18. She is currently taking Prozac. There are no other complaints at this time. Blood Type: AB Positive Patient History No past medical history on file. No past surgical history on file. No family history on file. Social History Substance Use Topics ??? Smoking status: Not on file ??? Smokeless tobacco: Not on file ??? Alcohol use Not on file Review of Systems Review of Systems Constitutional: Negative for chills, fatigue and fever. HENT: Negative for congestion, ear pain, rhinorrhea, sneezing and sore throat. Respiratory: Negative for cough, shortness of breath and wheezing. Cardiovascular: Negative for chest pain and palpitations. Gastrointestinal: Negative for abdominal pain, constipation, diarrhea, nausea and vomiting. Genitourinary: Positive for vaginal bleeding. Negative for dysuria and frequency. Musculoskeletal: Negative for arthralgias, back pain, myalgias and neck pain. Skin: Negative for color change, pallor, rash and wound. Neurological: Negative for dizziness, syncope, weakness, light-headedness and headaches. All other systems reviewed and are negative. Physical Exam ED Triage Vitals Temp Pulse Resp BP SpO2 04/11/18191204/11/18191204/11/18191204/11/18191204/11/181912 37.3 ??C (99.2 ??F) 100 16 127/71 98 % Temp src Heart Rate Source Patient Position BP Location FiO2 (%) 04/11/18191204/11/18233404/11/18233404/11/182334 -- Temporal Monitor Lying Left arm Physical Exam Constitutional: She is oriented to person, place, and time. She appears well- developed and well-nourished. No distress. HENT: Head: Normocephalic and atraumatic. Mouth/Throat: Oropharynx is clear and moist. Eyes: Conjunctivae and EOM are normal. Neck: Normal range of motion. Neck supple. Cardiovascular: Normal rate, regular rhythm, normal heart sounds and intact distal pulses. Exam reveals no gallop and no friction rub. No murmur heard. Pulmonary/Chest: Effort normal and breath sounds normal. No respiratory distress. She has no wheezes. She has no rales. Abdominal: Soft. She exhibits no distension. There is no tenderness. Genitourinary: Genitourinary Comments: Pelvic exam shows no visible blood. Musculoskeletal: Normal range of motion. She exhibits no edema, tenderness or deformity. Neurological: She is alert and oriented to person, place, and time. Skin: Skin is warm and dry. Capillary refill takes less than 2 seconds. No rash noted. No erythema.No pallor. Psychiatric: She has a normal mood and affect. Her behavior is normal. Nursing note and vitals reviewed. Procedures MDM Labs Reviewed URINALYSIS AND REFLEX TO MICROSCOPIC AND CULTURE - Abnormal Result Value Color, ur Yellow Clarity, ur Cloudy (*) Specific gravity, ur 1.025 pH, urine 6.5 Protein, ur ql Negative Glucose, ur ql Negative Ketones, ur Negative Bilirubin, ur Negative Blood, ur Negative Urobilinogen, ur 0.2 Nitrite, ur Negative Leukocyte esterase, ur Negative Narrative: Urine pH is affected by diet, medications, systemic acid-base disturbances, and renal tubular function. pH may affect urinary stone formation. For example, urine pH below 6.0 may help reduce the tendency for calcium phosphate stones and pH greater than 6.0 may reduce the tendency for uric acid stone formation. Source: [facility] [employer].Last revised 08-22-2017 Urine pH is affected by diet, medications, systemic acid-base disturbances, and renal tubular function. pH may affect urinary stone formation. For example, urine pH below 6.0 may help reduce the tendency for calcium phosphate stones and pH greater than 6.0 may reduce the tendency for uric acid stone formation. Source: [employer].Last revised 08-22-2017 CBC WITH AUTO DIFFERENTIAL - Abnormal WBC 8.6 Hgb 12.1 Hct 34.7 (*) Plt 217 MPV 10.5 RBC 4.07 MCV 85.3 MCH 29.7 MCHC 34.9 RDW CV 12.4 RDW SD 38.5 NRBC Abs 0.00 Narrative: COMPREHENSIVE METABOLIC PANEL - Abnormal Sodium 136 Potassium, pl 4.1 Chloride 100 CO2 24 Anion Gap 12 BUN 8 Creatinine 0.44 Glucose 100 Calcium 9.3 Bilirubin, total 0.2 Protein, pl 7.2 Albumin 4.3 Alk phos 48 (*) ALT 11 AST 14 Narrative: HCG, BLOOD, QUANTITATIVE - Abnormal hCG, quant 82,024.0 (*) Narrative: DIFFERENTIAL AUTO Neutrophil absolute 5.6 Immature granulocyte absolute 0.0 Lymphocytes absolute 2.2 Monocyte absolute 0.5 Eosinophils absolute 0.2 Basophils, abs 0.0 Neutrophils 64.6 Immature granulocytes 0.3 Lymphocytes 25.7 Monocytes 6.3 Eosinophils 2.6 Basophils 0.5 Narrative: EGFR GFR >60 Narrative: TYPE AND SCREEN ABO/RH ABO/RH. AB Positive Narrative: Has the patient had Daratumumab (Darzalex) in the past 6 months?->Unknown ANTIBODY SCREEN Doris, indirect, Gel Interpretation Negative ABSC Narrative: Has the patient had Daratumumab (Darzalex) in the past 6 months?->Unknown US Ob Under 14 Weeks W Endovaginal Final Result Live intrauterine with mean gestational age of 7 weeks 0 days and estimated due date of 11/29/2018. Electronically signed by: Stevie Witt M.D. BP 108/63 (BP Location: Left arm, Patient Position: Lying) Pulse 85 Temp 37.1 ??C (98.7 ??F) (Oral) Resp 16 Ht 154.9 cm (5' 1 ) Wt 56.7 kg (125 lb) LMP (Within Days) Comment: 02/18/18 SpO2 98% BMI 23.62 kg/m?? MDM ED Course as of Apr 15 101 Time: 04/12 329 Value: US Ob Under 14 Weeks W Endovaginal Comment: 7 weeks IUP. Viable. By: Dane Retana Time: 04/12 033 Comment: Rechecked patient. Condition is improved. Discussed the results of ED findings, and the plan for discharge. Recommended follow up with PCP or return to ED for new or worsening symptoms. Patient understands and agrees with plan. All other questions have been addressed. By: Dane Castro scribed for Alexander Morales DO, in the doctor's presence. I electronically signed this note at 10:19 AM on 04/15/2018. I, Alexander Morales DO, have personally performed the services described in the documentation , reviewed the documentation, as recorded by the scribe in my presence, and it accurately and completely records my words and actions. Clinical Impression: Vaginal bleeding during Alexander Morales DO 04/15/18 1019 * Misa Monge RN - 04/11/2018 7:11 PM CDT PT states she is , unknown how far along. Has an appt 04/28/[address] Mckenzie. Began spotting today, noticed when wiping twice today, was bright red. LMP approx 02/18/18 documented in this encounter Plan of Treatment Not on file documented as of this encounter Procedures Procedure Name Priority Date/Time Associated Diagnosis Comments URINALYSIS AND REFLEX TO MICROSCOPIC AND CULTURE STAT 04/12/2018 2:33 AM CDT US OB UNDER 14 WEEKS W ENDOVAGINAL ED 04/12/2018 1:22 AM CDT ABO/RH Timed 04/12/2018 12:34 AM CDT ANTIBODY SCREEN Timed 04/12/2018 12:34 AM CDT TYPE AND SCREEN Timed 04/12/2018 12:34 AM CDT EGFR STAT 04/11/2018 8:08 PM CDT DIFFERENTIAL AUTO STAT 04/11/2018 8:0 8 PM CDT CBC WITH AUTO DIFFERENTIAL STAT 04/11/2018 8:08 PM CDT HCG, BLOOD, QUANTITATIVE STAT 04/11/2018 8:08 PM CDT COMPREHENSIVE METABOLIC PANEL STAT 04/11/2018 8:08 PM CDT documented in this encounter Results * (ABNORMAL) Urinalysis reflex to microscopic and culture Urine (04/12/2018 2:33 AM CDT) Color, ur Yellow Yellow [facility] ([place]) Clarity, ur Cloudy(A) Clear [facility] ([place]) Specific gravity, ur 1.025 1.010 - 1.025 [facility] ([place]) pH, urine 6.5 [facility]) Protein, ur ql Negative Negative [facility]) Glucose, ur ql Negative Negative [facility]) Ketones, ur Negative Negative [facility] ([place]) Bilirubin, ur Negative Negative [facility] ([place]) Blood, ur Negative Negative [facility] ([place]) Urobilinogen, ur 0.2 mg/dL [facility] ([place]) Nitrite, ur Negative Negative [facility] ([place]) Leukocyte esterase, ur Negative Negative [facility] ([place]) Urine 04/12/2018 2:33 AM CDT 04/12/2018 2:37 AM CDT Narrative [facility] ([place]) - 04/12/2018 2:58 AM CDT ?? Urine pH is affected by diet, medications, systemic acid-base disturbances, and renal tubular function. ??pH may affect urinary stone formation. ??For example, urine pH below 6.0 may help reduce the tendency for calcium phosphate stones and pH greater than 6.0 may reduce the tendency for uric acid stone formation. Source: [employer]. Last revised 08-22-2017 Urine pH is affected by diet, medications, systemic acid-base disturbances, and renal tubular function. ??pH may affect urinary stone formation. ??For example, urine pH below 6.0 may help reduce the tendency for calcium phosphate stones and pH greater than 6.0 may reduce the tendency for uric acid stone formation. Source: [employer]. Last revised 08-22-2017 us Alexander Morales DO LAB MICROBIOLOGY - GENERAL ORDERABLES Final Result [facility] ([place]) 1 [facility] Department [place] [address] * US Ob Under 14 Weeks W Endovaginal (04/12/2018 1:22 AM CDT) Anatomical Region Laterality Modality Abdomen N/A Ultrasound 04/12/2018 3:19 AM CDT Impressions 04/12/2018 3:21 AM CDT Live intrauterine with mean gestational age of 7 weeks 0 days and estimated due date of 11/29/2018. Electronically signed by: Stevie Witt M.D. Narrative 04/12/2018 3:21 AM CDT EXAM: US OB UNDER 14 WEEKS W ENDOVAGINAL HISTORY: with vaginal bleeding COMPARISON: None FINDINGS: A live intrauterine measuring 1 cm crown-rump length is seen consistent with estimated gestational age of 7 weeks 0 days. Estimated due date is 11/29/2018 based on this exam. ??The heart rate is 135 bpm. ??The ovaries appear normal. ??A small amount of fluid is noted around the left ovary. Procedure Note Stevie Witt MD - 04/12/2018 EXAM: US OB UNDER 14 WEEKS W ENDOVAGINAL HISTORY: with vaginal bleeding COMPARISON: None FINDINGS: A live intrauterine measuring 1 cm crown-rump length is seen consistent with estimated gestational age of 7 weeks 0 days. Estimated due date is 11/29/2018 based on this exam. The heart rate is 135 bpm. The ovaries appear normal. A small amount of fluid is noted around the left ovary. IMPRESSION: Live intrauterine with mean gestational age of 7 weeks 0 days and estimated due date of 11/29/2018. Electronically signed by: Stevie Witt M.D. Alexander Morales DO IMG OB US PROCEDURES Final Result * Antibody screen (04/12/2018 12:34 AM CDT) Doris, indirect, Gel Interpretation Negative ABSC [facility] ([place]) Blood specimen (specimen) 04/12/2018 12:34 AM CDT 04/12/2018 12:41 AM CDT Narrative [facility] ([place]) - 04/12/2018 1:36 AM CDT Has the patient had Daratumumab (Darzalex) in the past 6 months?->Unknown Alexander Morales DO LAB BLOOD BANK TEST ORDERAB LES Final Result [facility] ([place]) 1 [facility] Department [place] [address] * ABO/Rh (04/12/2018 12:34 AM CDT) ABO/Rh AB Positive [facility] ([place]) Blood specimen (specimen) 04/12/2018 12:34 AM CDT 04/12/2018 12:41 AM CDT Narrative [facility]) - 04/12/2018 1:36 AM CDT Has the patient had Daratumumab (Darzalex) in the past 6 months?->Unknown us Alexander Morales DO LAB BLOOD BANK TEST ORDERAB LES Final Result [facility] ([place]) 1 [facility] Department [place] [address] * eGFR (04/11/2018 8:08 PM CDT) eGFR >60 mL/min/1.7 3 m2 [facility] ([place]) Comment: Interpretive Data Reference Interval Normal ?>/= 90 mL/min/1.73m2 Mildly decreased* ? 60 - 89 mL/min/1.73m2 Mildly to moderately decreased ?45 - 59 mL/min/1.73m2 Moderately to severely decreased ??30 - 44 mL/min/1.73m2 Severely decreased ?15 - 29 mL/min/1.73m2 Kidney Failure ?< 15 ??mL/min/1.73m2 *Relative to young adult level If -Congolese multiply value by 1.16. Estimated glomerular filtration [...] was last reviewed 2016. Blood specimen (specimen) 04/11/2018 8:08 PM CDT 04/11/2018 8:13 PM CDT Narrative [facility] ([place]) - 04/11/2018 8:40 PM CDT us Alexander Morales DO LAB BLOOD ORDERABLES Final Result [facility] ([place]) 1 [facility] Department [place] [address] * Differential, auto (04/11/2018 8:08 PM CDT) Neutrophil abs 5.6 1.7 - 6.5 K/cumm [facility] ([place]) Imm gran abs 0.0 0.0 - 0.1 K/cumm [facility] ([place]) Lymphocyte abs 2.2 0.8 - 3.3 K/cumm [facility] ([place]) Monocyte abs 0.5 0.2 - 0.8 K/cumm [facility] ([place]) Eosinophil abs 0.2 0.0 - 0.5 K/cumm [facility] ([place]) Basophil abs 0.0 0.0 - 0.1 K/cumm [facility] ([place]) Neutrophil pct 64.6 % [facility] ([place]) Comment: Interpretive Data Percent cell count reference ranges are not reported, since discordance with absolute values may lead to misinterpretation of CBC data. Current Interpretive Data was last revised on 2017. Imm gran pct 0.3 % [facility] ([place]) Comment: Interpretive Data Percent cell count reference ranges are not reported, since discordance with absolute values may lead to misinterpretation of CBC data. Current Interpretive Data was last revised on 2017. Lymphocyte pct 25.7 % [facility] ([place]) Comment: Interpretive Data Percent cell count reference ranges are not reported, since discordance with absolute values may lead to misinterpretation of CBC data. Current Interpretive Data was last revised on 2017. Monocyte pct 6.3 % [facility] ([place]) Comment: Interpretive Data Percent cell count reference ranges are not reported, since discordance with absolute values may lead to misinterpretation of CBC data. Current Interpretive Data was last revised on 2017. Eosinophil pct 2.6 % [facility] ([place]) Comment: Interpretive Data Percent cell count reference ranges are not reported, since discordance with absolute values may lead to misinterpretation of CBC data. Current Interpretive Data was last revised on 2017. Basophil pct 0.5 % [facility] ([place]) Comment: Interpretive Data Percent cell count reference ranges are not reported, since discordance with absolute values may lead to misinterpretation of CBC data. Current Interpretive Data was last revised on 2017. Blood specimen (specimen) 04/11/2018 8:08 PM CDT 04/11/2018 8:13 PM CDT Narrative [facility] ([place]) - 04/11/2018 8:16 PM CDT us Alexander Morales DO LAB BLOOD ORDERABLES Final Result [facility] ([place]) 1 [facility] Department [place] [address] * (ABNORMAL) hCG, blood, quantitative (04/11/2018 8:08 PM CDT) hCG, quant 82,024.0( H) 0.0 - 5.0 IUnits/L [facility] ([place]) Comment: diluted Interpretive Data Non- Female premenopausal: < or = 5.0 IUnits/L Men: < 5.0 IUnits/L Weeks of Gestation ? Reference Interval ?? 3 to 6 ? 5.8-31,795 IUnits/L ?? 7 to 10 ? 3,697-186,977 IUnits/L ??12 to 15 ?27,832- 70,791 IUnits/L ??16 to 18 ? 9,040- 58,179 IUnits/L Current Interpretive Data was last revised on 2018. Blood specimen (specimen) 04/11/2018 8:08 PM CDT 04/11/2018 8:13 PM CDT Narrative [facility] ([place]) - 04/11/2018 8:56 PM CDT Alexander Morales DO LAB BLOOD ORDERABLES Final Result [facility] ([place]) 1 [facility] Department [place] [address] * (ABNORMAL) Comprehensive metabolic panel (04/11/2018 8:08 PM CDT) Sodium 136 135 - 145 mmol/L [facility] ([place]) Potassium, pl 4.1 3.3 - 4.9 mmol/L [facility] ([place]) Chloride 100 97 - 110 mmol/L [facility] ([place]) CO2 24 22 - 32 mmol/L [facility] ([place]) Anion gap 12 2 - 15 mmol/L [facility] ([place]) BUN 8 8 - 25 mg/dL [facility] ([place]) Creatinine 0.44 0.40 - 1.00 mg/dL [facility] ([place]) Glucose 100 70 [...] interpretive data was last revised 2017. Calcium 9.3 8.5 - 10.3 mg/dL [facility] ([place]) Bilirubin, total 0.2 0.1 - 1.2 mg/dL [facility] ([place]) Protein, pl 7.2 6.5 - 8.5 g/dL [facility] ([place]) Albumin 4.3 3.5 - 5.0 g/dL [facility] ([place]) Alk phos 48(L) 70 - 260 Units/L [facility]) ALT 11 7 - 45 Units/L [facility]) AST 14 10 - 45 Units/L [facility] ([place]) Blood specimen (specimen) 04/11/2018 8:08 PM CDT 04/11/2018 8:13 PM CDT Narrative [facility] ([place]) - 04/11/2018 8:40 PM CDT Alexander Morales DO LAB BLOOD ORDERABLES Final Result [facility] ([place]) 1 [facility] [place] [address] * (ABNORMAL) CBC with auto differential (04/11/2018 8:08 PM CDT) WBC 8.6 3.8 - 9.9 K/cumm [facility] ([place]) Hgb 12.1 11.9 - 15.5 g/dL [facility] ([place]) Hct 34.7(L) 35.6 - 45.5 % [facility] ([place]) Plt 217 150 - 400 K/cumm [facility] ([place]) MPV 10.5 9.1 - 12.3 fL [facility]) RBC 4.07 3.90 - 5.20 M/cumm [facility] ([place]) MCV 85.3 81.3 - 96.4 fL [facility] ([place]) MCH 29.7 27.1 - 33.3 pg [facility] ([place]) MCHC 34.9 32.3 - 35.7 g/dL [facility] ([place]) RDW CV 12.4 11.1 - 14.9 % [facility] ([place]) RDW SD 38.5 35.7 - 48.1 fL [facility] ([place]) NRBC abs 0.00 0.00 - 0.01 K/cumm [facility] ([place]) Blood specimen (specimen) 04/11/2018 8:08 PM CDT 04/11/2018 8:13 PM CDT Narrative [facility] ([place]) - 04/11/2018 8:16 PM CDT us Alexander Morales DO LAB BLOOD ORDERABLES Final Result [facility] ([place]) 1 [facility] Department [place] [address] documented in this encounter Visit Diagnoses Diagnosis Vaginal bleeding during - Primary documented in this encounter Orders Nursing Count Last Ordered Date First Orde red Date PROVIDE EQUIPMENT / SUPPLIES AT BEDSIDE 1 0 04/12/2018 documented in this encounter Care Teams Gristmill Operator Relationship Specialty Start Date End Date Unknown, Notinfile PCP - General 04/11/18 10/21/18 documented as of this encounter
--- OUTSIDE RECORDS SUMMARY | 2024-08-16 21:38 | XMS_ITS | Encounter Summary ---
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
--- OUTSIDE RECORDS SUMMARY | 2024-08-16 21:38 | XMS_ITS | Encounter Summary ---
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 Gender Identity Not on file Sexual Orientation Not on file documented as of this encounter Progress Notes * Lu Hurtado RN - 09/23/2023 7:50 AM CST Please schedule pt: With: Resident Appointment Type: IGY Reason: Consult for sterilization When: Next available Tenon Machine Operator: n/a PA: n/a ER MARKER documented in this encounter Plan of Treatment Not on file documented as of this encounter Visit Diagnoses Not on filedocumented in this encounter Care Teams Corporate Fitness Program Coordinator Relationship Specialty Start Date End Date No, Physician PCP - General 11/11/20 01/16/24 documented as of this encounter
--- OUTSIDE RECORDS SUMMARY | 2024-08-16 21:38 | XMS_ITS | Encounter Summary ---
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
== END 2024-08-09 18:06 | disposition home or self-care (01) ==
LOC: CHSED 17:57
PROVIDERS: Emergency Provider Emergency Medicine; PCP Internal Medicine
DX: K05.10 Chronic gingivitis, plaque induced (principal); K08.89 Other specified disorders of teeth and supporting structures; F17.200 Nicotine dependence, unspecified, uncomplicated
CPT/HCPCS: 99283

== ENCOUNTER 2024-09-26 11:55 | Emergency (ER) | payer OTHER, SELFPAY ==
--- NOTE | ~2024-09-26 | XR_ITS ---
EXAMINATION: XR ankle RT min 3V, XR foot RT min 3V DATE: 09/26/2024 12:46 INDICATION: Right foot and ankle pain and swelling post fall TECHNIQUE: 1. Anteroposterior, oblique and lateral view of the right ankle were obtained. 2. Dorsoplantar, oblique and lateral views of the right foot were obtained. COMPARISON: None. FINDINGS: Alignment of the foot and ankle is normal. There is a sagittally oriented linear lucency extending ac ross the cuboid consistent with nondisplaced intra-articular fracture with no fracture gap or incongr uity along the articular surfaces. No other fractures identified. Joint spaces are well maintained. N o ankle joint effusion. Mild soft tissue swelling at the dorsal and lateral aspects of the midfoot. IMPRESSION: 1. Nondisplaced intra-articular fracture of the cuboid. Reviewed, dictated and finalized at location A. NSION STONE QUARRY SUPERVISOR IMPRESSION: 1. Nondisplaced intra-articular fracture of the cuboid.
[2024-09-26 11:56] VITALS: BP 140/95; PULSE 89; RESP 16; TEMP 36.7; O2SAT 100
--- OUTSIDE RECORDS SUMMARY | 2024-09-26 11:59 | XMS_ITS | Encounter Summary ---
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
--- OUTSIDE RECORDS SUMMARY | 2024-09-26 11:59 | XMS_ITS | Clinical Summary ---
Author Organization [facility] Address [address] [place] [address] Care Team Providers Care Criminal Investigator Name Role Phone None, Provider MD Primary [...] on file Legal Sex Female 5:53 PM MANAGER ORDER Gender Identity Not on file Sexual Orientation Not on file Last Filed Vital Signs Vital Sign Reading Time Taken Comments Blood Pressure 127/83 06/30/2020 1:57 AM MANAGER ORDER Pulse 119 06/30/2020 1:57 AM MANAGER ORDER Temperature 36.9 C (98.4 F) 06/30/2020 1:57 AM MANAGER ORDER Respiratory Rate 16 06/30/2020 1:57 AM MANAGER ORDER Oxygen Saturation 99% 06/30/2020 1:57 AM MANAGER ORDER Inhaled Oxygen Concentration - - Weight 65.8 kg (145 lb) 06/30/2020 1:57 AM MANAGER ORDER Height 154.9 cm (5' 1 ) 06/30/2020 1:57 AM MANAGER ORDER Body Mass Index 27.4 06/30/2020 1:57 AM MANAGER ORDER Plan of Treatment Health Maintenance Due Date [...] 11/05/2003, 12/31/2000, Additional history exists COVID-19 Vaccine (2023- season) 2024 Influenza Adult (#1) 2024 06/25/2018, 06/27/20 09 RSV Immunization or 60+ Years (1 - 1-dose 75+ series) 2074 HPV Vaccines Completed 02/18/2013, 11/12, 06/16/2012 Meningococcal Vaccine Completed 05/30/2016, 011 Meningococcal B Vaccine Aged Out No l onger eligible based on patient's age to complete this topic RSV Immunizations Under 20 Months Aged Out No longer eligible based on patient's age to complete this topic [place] [address] [address] [address] Care Teams Criminal Investigator Relationship Specialty Start Date End Date None, Provider, PCP - General 05/23/19
--- OUTSIDE RECORDS SUMMARY | 2024-09-26 11:59 | XMS_ITS | Clinical Summary ---
Author Organization [facility] Address [address] [place] [address] Phone Care Team Providers Care Formal Waiter/Waitress Name Role Phone Tyler Higgins MD Primary Care Provider [phone] Allergies No known active allergies Medications No [...] 90 02/10/2018 2:48 PM CDT Temperature 37.1 C (98.8 F) 02/10/2018 2:48 PM CDT Respiratory Rate 16 02/10/2018 2:48 PM CDT [...] 2020 Influenza Immunization (#1) 2024 SARS-COV-2 Immunization ( season) 2024 Respiratory Syncytial Virus (RSV) Immunization [...] Insurance MEDICAID [facility] Care Teams Formal Waiter/Waitress Relationship Specialty Start Date End Date Tyler Higgins MD [address] [place] [address] PCP - General Internal Medicine 02/10/18
--- OUTSIDE RECORDS SUMMARY | 2024-09-26 11:59 | XMS_ITS | Referral Summary ---
Author Organization [facility] [address] Address [address] [place] [address] Phone Care Team Providers Care Poultry Farm Laborer Name Role Phone Unknown, Notinfile Primary Care [...] file Legal Sex Female 6:01 PM DIRECTOR METABOLISM Gender Identity Not on file Sexual Orientation Not on file Last Filed Vital Signs Vital Sign Reading Time Taken Comments Blood Pressure 107/69 01/27/2024 1:30 PM CDT Pulse 71 01/27/2024 1:30 PM CDT Temperature 36.2 C (97.2 F) 01/27/2024 12:15 PM CDT Respiratory Rate 18 01/27/2024 1:30 PM CDT Oxygen Saturation 98% 01/27/2024 1:30 PM CDT Inhaled Oxygen Concentration - - Weight 77.1 kg (170 lb) 01/15/2024 4:45 PM CDT Height 154.9 cm (5' 1 ) 01/15/2024 4:45 PM CDT Body Mass Index 32.12 01/15/2024 4:45 PM CDT Plan of Treatment Not on file Insurance [facility] Advance Directives For more information, please contact: [phone] * Full Code (Latest Code Status on File) Date Activated Date Inactivated Comments 11/11/2020 8:52 AM 11/12/2020 7:35 PM * Full Code Date Activated Date Inactivated Comments 11/20/2018 6:44 PM 11/22/2018 7:14 PM * Full Code Date Activated Date Inactivated Comments 11/19/2018 5:50 PM 11/20/2018 6:44 PM Full CPR in case of cardiopulmonary arrest Care Teams Poultry Farm Laborer Relationship Specialty Start Date End Date Unknown, Notinfile PCP - General 01/17/24
--- OUTSIDE RECORDS SUMMARY | 2024-09-26 11:59 | XMS_ITS | Clinical Summary ---
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 it ([facility]) 2020 [...] 08/30/2030 08/30/2020, 01/25/2020, 10/01/2018, Additional history exists Hepatitis B Screening Completed 12/31/2000 , 02/09/2000, 1999 HPV Vaccines Completed 02/18/2013, 11/12, 06/16/2012 Varicella Vaccines Completed 08/18/2014, 04/21/[address] [facility] Advance Directives For more information, please contact: [phone] * Full Code (Latest Code Status on File) Date Activated Date Inactivated Comments 11/11/2020 8:52 AM 11/12/2020 7:35 PM * Full Code Date Activated Date Inactivated Comments 11/20/2018 6:44 PM 11/22/2018 7:14 PM * Full Code Date Activated Date Inactivated Comments 11/19/2018 5:50 PM 11/20/2018 6:44 PM Full CPR in case of cardiopulmonary arrest Care Teams Information Technology Associate Relationship Specialty Start Date End Date Unknown, Notinfile PCP - General 01/17/24
[2024-09-26] MEDS: IBUPROFEN 400 MG TABLET PO (12:07)
--- OUTSIDE RECORDS SUMMARY | 2024-09-26 12:51 | XMS_ITS | Clinical Summary ---
Author Organization [facility] Address [address] [place] [address] Care Team Providers Care Instructor Bridge Name Role Phone None, Provider MD Primary [...] on file Legal Sex Female 5:53 PM TEA ROOM MANAGER Gender Identity Not on file Sexual Orientation Not on file Last Filed Vital Signs Vital Sign Reading Time Taken Comments Blood Pressure 127/83 06/30/2020 1:57 AM TEA ROOM MANAGER Pulse 119 06/30/2020 1:57 AM TEA ROOM MANAGER Temperature 36.9 C (98.4 F) 06/30/2020 1:57 AM TEA ROOM MANAGER Respiratory Rate 16 06/30/2020 1:57 AM TEA ROOM MANAGER Oxygen Saturation 99% 06/30/2020 1:57 AM TEA ROOM MANAGER Inhaled Oxygen Concentration - - Weight 65.8 kg (145 lb) 06/30/2020 1:57 AM TEA ROOM MANAGER Height 154.9 cm (5' 1 ) 06/30/2020 1:57 AM TEA ROOM MANAGER Body Mass Index 27.4 06/30/2020 1:57 AM TEA ROOM MANAGER Plan of Treatment Health Maintenance Due Date [...] patient's age to complete this topic [place] [address] [place] [address] [address] [address] Care Teams Instructor Bridge Relationship Specialty Start Date End Date None, Provider, PCP - General 05/23/19
--- OUTSIDE RECORDS SUMMARY | 2024-09-26 12:51 | XMS_ITS | Encounter Summary ---
Author Organization [facility] Address [address] [place] [address] Care Team Providers Care Hvac Sheet Metal Installer Name Role Phone None, Provider Primary Care Provider Unavaila ble Encounter Details Date Type Department Care Team (Late st Contact Info) Description 01/17/2019 Abstract SFL CONVERSION [address] [place] [address] , Generic Conversion, Social History Tobacco Use Types Packs/Day Years Used Date Smoking Tobacco: Never Assessed Comments Unknown Sex and Gender Information Value Date Recorded Sex Assigned at Not on file Legal Sex Female 5:53 PM CORE WORKER Gender Identity Not on file Sexual Orientation Not on file documented as of this encounter Plan of Treatment Not on file documented as of this encounter Visit Diagnoses Not on filedocumented in this encounter Care Teams Hvac Sheet Metal Installer Relationship Specialty Start Date End Date None, Provider, PCP - General 05/23/19 documented as of this encounter
--- OUTSIDE RECORDS SUMMARY | 2024-09-26 12:51 | XMS_ITS | Clinical Summary ---
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 Advance Directives For more information, please contact: [phone] * Full Code (Latest Code Status on File) Date Activated Date Inactivated Comments 11/11/2020 8:52 AM 11/12/2020 7:35 PM * Full Code Date Activated Date Inactivated Comments 11/20/2018 6:44 PM 11/22/2018 7:14 PM * Full Code Date Activated Date Inactivated Comments 11/19/2018 5:50 PM 11/20/2018 6:44 PM Full CPR in case of cardiopulmonary arrest Care Teams Arch Pad Cementer Relationship Specialty Start Date End Date Unknown, Notinfile PCP - General 01/17/24
--- OUTSIDE RECORDS SUMMARY | 2024-09-26 12:51 | XMS_ITS | Referral Summary ---
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 Gender Identity Not on file Sexual Orientation [...] Plan of Treatment Not on file Insurance [facility] Advance Directives For more information, please contact: [phone] * Full Code (Latest Code Status on File) Date Activated Date Inactivated Comments 11/11/2020 8:52 AM 11/12/2020 7:35 PM * Full Code Date Activated Date Inactivated Comments 11/20/2018 6:44 PM 11/22/2018 7:14 PM * Full Code Date Activated Date Inactivated Comments 11/19/2018 5:50 PM 11/20/2018 6:44 PM Full CPR in case of cardiopulmonary arrest Care Teams Farm Equipment Engine Mechanic Relationship Specialty Start Date End Date Unknown, Notinfile PCP - General 01/17/24
--- OUTSIDE RECORDS SUMMARY | 2024-09-26 12:51 | XMS_ITS | Clinical Summary ---
Author Organization [facility] Address [address] [place] [address] Phone Care Team Providers Care Echocardiography Tech Name Role Phone Tyler Higgins MD Primary Care Provider [phone] Allergies No known active allergies Medications No [...] Insurance MEDICAID [employer] Care Teams Echocardiography Tech Relationship Specialty Start Date End Date Tyler Higgins MD [address] [place] [address] PCP - General Internal Medicine 02/10/18
--- NOTE | 2024-09-26 13:01 | ED_ITS ---
HPI - Extremity Injury (Lower) General Chief Complaint: Extremity Injury, Lower Stated Complaint: rt. foot pain Time Seen by Provider: 09/26/24 11:56 Source: patient and family Mode of arrival: ambulatory Limitations: no limitations History of Present Illness HPI Narrative: this is a 23-year-old female who presents with pain in her right lateral foot after she fell down a few steps last night with pain level about a 6/10 had taken some Tylenol late yesterday, otherwise no numbness or tingling has good range of motion all limited secondary to pain and swelling. complaint: foot injury Onset (ago): day(s) Injury: Right: foot ( bruising and swelling lateral aspect of her right foot) Type of Injury: blunt Place: home Severity: moderate Severity scale (1-10): 6 Relieving factors: NSAID Exacerbating factors: weight bearing, movement and palpation Context: fall Related Data Home Medications ?Medication ?Instructions ?Recorded ?Confirmed ?Last Taken ?Type guanfacine 1 mg tablet,extended 1 mg PO QPM 08/09/24 08/09/24 Unknown History release 24 hr Allergies Allergy/AdvReac Type Severity Reaction Status Date / Time No Known Allergies Allergy Verified 09/26/24 12:00 Review of Systems Review of Systems: All systems reviewed & are unremarkable except as noted in HPI and below PMFSH Past Medical History Medical History Depression Surgical History Surgical History History of incision and drainage Social History Social History Smoking status: Current every day smoker Alcohol intake: never Substance use: never Exam Const: General: healthy appearing, no acute distress and alert Nutritional Appearance: well nourished Orientation/consciousness: patient oriented x3 Limitations: no limitations Resp: Effort & Inspection: normal respiratory effort Auscultation: clear to auscultation bilaterally Cardio: Rate: regular rate Rhythm: regular rhythm GI: GI Palp: Yes Soft to palpation Skin: Rashes: no rashes Wounds: wounds noted Extrem: Other: Has bruising and swelling lateral aspect of her right foot Course Course Emergency Course: x-ray performed shows a nondisplaced cuboid fracture on the right foot Nish wrap and postop shoe administered, patient received a dose of p.o. Motrin. Vital Signs Vital signs: Vital Signs Temperature 36.7 C 09/26/24 11:56 Pulse Rate 89 09/26/24 11:56 Respiratory Rate 16 09/26/24 11:56 Blood Pressure 140/95 H 09/26/24 11:56 Pulse Oximetry 100 09/26/24 11:56 Oxygen Delivery Room Air 09/26/24 11:56 Temperature 36.7 C 09/26/24 11:56 Pulse Rate 89 09/26/24 11:56 Respiratory Rate 16 09/26/24 11:56 Blood Pressure 140/95 H 09/26/24 11:56 Pulse Oximetry 100 09/26/24 11:56 Oxygen Delivery Room Air 09/26/24 11:56 Critical Care Time Critical Care Time Critical Care Time: No Discharge Plan Discharge Clinical Impression: Foot fracture, right Qualifiers: Encounter type: initial encounter Fracture type: closed Qualified Code(s): S92.901A - Unspecified fracture of right foot, initial encounter for closed fracture Patient Disposition: Home, Self-Care Condition: Stable Instructions: Antibiotic Form, Foot Fracture in Adults (ED) Additional Instructions: advised patient to follow with primary within 1 week for further evaluation and treatment, can take Motrin/ ibuprofen as needed for pain and inflammation. Patient Language: Botswanan Prescriptions: No Action guanfacine 1 mg tablet extended release 24 hr 1 mg PO QPM ibuprofen [IBU] 800 mg tablet 800 mg PO TID Qty: 20 0RF penicillin V potassium 500 mg tablet 500 mg PO Q6H Qty: 40 0RF Follow-up/Referrals: UNKNOWN,DOCTOR [Primary Care Provider] - Time of Disposition: 13:05
[2024-09-26 13:13] VITALS: BP 135/89; PULSE 85; RESP 16; TEMP 36.8; O2SAT 99
[2024-09-26 13:17] VITALS: BP 135/89; PULSE 85; RESP 16; TEMP 36.8; O2SAT 99
== END 2024-09-26 13:17 | disposition home or self-care (01) ==
PROVIDERS: Emergency Provider Emergency Medicine
DX: S92.901A Unspecified fracture of right foot, initial encounter for closed fracture (principal); F17.200 Nicotine dependence, unspecified, uncomplicated; W10.9XXA Fall (on) (from) unspecified stairs and steps, initial encounter
CPT/HCPCS: 73610; 73630; 99284; A9270

== ENCOUNTER 2025-02-18 17:20 | Emergency (ER) | payer OTHER, SELFPAY ==
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
[2025-02-18 17:21] VITALS: BP 143/90; PULSE 75; RESP 18; TEMP 36.1; O2SAT 100
--- OUTSIDE RECORDS SUMMARY | 2025-02-18 17:22 | XMS_ITS | Clinical Summary ---
Author Organization [facility] [address] Address [address] [place] [address] Phone Care Team Providers Care Rural Mail Carrier Name Role Phone Unknown, Notinfile Primary Care [...] for sterilization 11/01/2023 Unwanted fertility 11/01/2023 Immunizations Immunization Administration Dates Next Due Influenza, Quadrivalent, Spl [...] on file Legal Sex Female 6:01 PM SETTLEMENT CLERK Gender Identity Not on file Sexual Orientation [...] Geoffr ey Lowell, MD Complications:None Delivery Location:This [facility] it ([facility]) 2020 Term [...] 4:45 PM CDT Height 154.9 cm (5' 1) 01/15/2024 4:45 PM CDT Body Mass Index 32.12 01/15/2024 4:45 PM CDT Plan of Treatment Health Maintenance Due Date Last Done Comments Cervical Cancer Screening 1999 Depression Screening 1999 Hepatitis C Screening 1999 Regular Well Visit/Exam 18-64 2017 Pneumococcal vaccine <65 (1 of 2 - PCV) 2018 Influenza Vaccine (#1) 2025 0, 06/25/2018, 06/14/2017, Additional history exists DTaP/Tdap/Td Vaccine (10 - T d or Tdap) 08/30/2030 08/30/2020, 01/25/2020, 10/01/2018, Additional history exists Hepatitis B Screening Completed 12/31/2000 , 02/09/2000, 1999 HPV Vaccines Completed 02/18/2013, 11/12, 06/16/2012 Varicella Vaccines Completed 08/18/2014, 04/21/2014 Insurance [facility] Advance Directives For more information, please contact: [phone] * Full Code (Latest Code Status on File) Date Activated Date Inactivated Comments 11/11/2020 8:52 AM 11/12/2020 7:35 PM * Full Code Date Activated Date Inactivated Comments 11/20/2018 6:44 PM 11/22/2018 7:14 PM * Full Code Date Activated Date Inactivated Comments 11/19/2018 5:50 PM 11/20/2018 6:44 PM Full CPR in case of cardiopulmonary arrest Care Teams Rural Mail Carrier Relationship Specialty Start Date End Date Unknown, Notinfile PCP - General 01/17/24
--- OUTSIDE RECORDS SUMMARY | 2025-02-18 17:22 | XMS_ITS ---
Author Organization Unknown Plan of Treatment Description Planned Activity Planned Timing [facility] is a provider organization who partners directly with Health Plans and provides integrated primary care, behavioral health, and social media campaign manager for an attributed population Letter encounter to patientTelephone encounter Feb 04, 2025Jul 2024 Patient Care team information Name Category Status Period Participants - - Proposed period not known -
--- OUTSIDE RECORDS SUMMARY | 2025-02-18 17:22 | XMS_ITS | Clinical Summary ---
Author Organization [facility] Address [address] [place] [address] Care Team Providers Care Security And Compliance Project Manager Name Role Phone None, Provider MD Primary Care Provider Unavaila ble Allergies No known active allergies Medications sertraline 100 MG tablet Take 100 mg by mouth daily. Active vitamin, low iron, 27-0.8 MG tablet Take 1 tablet by mouth daily. Active Immunizations Immunization Administration Dates Next Due Rabies (Rabavert) 01/25/2020 [...] on file Legal Sex Female 5:53 PM RESIDENT CARE MANAGER Gender Identity Not on file Sexual Orientation Not on file Last Filed Vital Signs Vital Sign Reading Time Taken Comments Blood Pressure 127/83 06/30/2020 1:57 AM RESIDENT CARE MANAGER Pulse 119 06/30/2020 1:57 AM RESIDENT CARE MANAGER Temperature 36.9 C (98.4 F) 06/30/2020 1:57 AM RESIDENT CARE MANAGER Respiratory Rate 16 06/30/2020 1:57 AM RESIDENT CARE MANAGER Oxygen Saturation 99% 06/30/2020 1:57 AM RESIDENT CARE MANAGER Inhaled Oxygen Concentration - - Weight 65.8 kg (145 lb) 06/30/2020 1:57 AM RESIDENT CARE MANAGER Height 154.9 cm (5' 1) 06/30/2020 1:57 AM RESIDENT CARE MANAGER Body Mass Index 27.4 06/30/2020 1:57 AM RESIDENT CARE MANAGER Plan of Treatment Health Maintenance Due Date Last Done Comments Cervical Cancer Screening Pap Smear (Age 21 to 29) Every 3 Years 1999 Cervical Cancer Screening 1999 Annual Physical 2002 Hepatitis C 2017 Hepatitis B Vaccines (1 of 3 - 19+ 3-dose series) 2018 Pneumococcal Vaccine: Pediatrics (0 to 5 Years) and At-Risk Patients (6 to 49 Years) (1 of 2 - PCV) 2018 DTaP, Tdap and Td Vaccines (6 - Tdap) 01/26/2020 01/25/2020, 11/05/2003, 12/31/2000, Additional history exists COVID-19 Vaccine (2023- season) 2024 RSV Immunization or 60+ Years (1 - 1-dose 75+ series) 2074 HPV Vaccines Completed 02/18/2013, 11/12, 06/16/2012 Meningococcal Vaccine Completed 05/30/2016, 011 Meningococcal B Vaccine Aged Out No l onger eligible based on patient's age to complete this topic RSV Immunizations Under 20 Months Aged Out No longer eligible based on patient's age to complete this topic Insurance [address] [place] [address] Care Teams Security And Compliance Project Manager Relationship Specialty Start Date End Date None, Provider, PCP - General 05/23/19
--- OUTSIDE RECORDS SUMMARY | 2025-02-18 17:22 | XMS_ITS | Clinical Summary ---
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 25 Encounters Date Type Department Care Team Description 11/26/2024 1:30 PM CDT Telemedicine [facility] [address] [place] [address] Arnaud Rosas PSYD Attention deficit hyperactivity disorder, combined presentation, moderate (Primary Dx); Generalized anxiety disorder; Major depressive disorder, single episode, moderate (HCC) Discharge Disposition: Discharged to home or Selfcare 11/24/2024 Travel from Last 3 Months Family History Relation Name Status Comments Brother Alive Father Mother Alive Son 1 (3) Alive Son 2 (5) Alive Social History Tobacco Use Types Packs/Day Years Used Date Smoking Tobacco: Every Day Cigarettes Smokeless Tobacco: Never Tobacco Cessation:Ready to Q uit: Not Asked; Counseling Given: Not Answered Alcohol Use Standard Drinks/Week Comments No 0 (1 standard drink = 0.6 oz pur e alcohol) Sexually Active Control Partners Comments Yes Male Comments Unknown Sex and Gender Information Value [...] 2:48 PM CDT Height 154.9 cm (5' 1) 02/10/2018 2:48 PM CDT Body Mass Index 23.62 02/10/2018 2:48 PM CDT Plan of Treatment Health Maintenance Due Date Last Done Comments Hepatitis C Virus (HCV) Screening 1999 Pneumococcal Immunization Combined (1 of 2 - PCV) 2018 Pap Smear 2020 SARS-COV-2 Immunization ( - season) 2024 Influenza Immunization (#1) 04/12/202506/12, 06/25/2018, 06/14/2017, Additional history exists Respiratory Syncytial Virus (RSV) Immunization (Adult) (1 - 1-dose 75+ series) 2074 Hepatitis B Immunization Completed 001, 02/09/2000, 1999 Human Papillomavirus (HPV) Immunization Completed 02/18/2013, 12/09/2012, 06/16/2012 Meningococcal Immunization (ACWY) Completed 05/30/2016, 03/15/2011 DTaP/Tdap/Td Immunization Discontinued 2020, 01/25/2020, 10/01/2018, Additional history exists TdaP Immunization Completed 08/30/2020, , 03/15/2011 Rotavirus Immunization Aged Out No lo nger eligible based on patient's age to complete this topic Insurance MEDICAID [employer] Care Teams New Car Salesperson Relationship Specialty Start Date End Date Tyler Higgins MD [address] [place] [address] PCP - General Internal Medicine 02/10/18
--- OUTSIDE RECORDS SUMMARY | 2025-02-18 17:22 | XMS_ITS | Referral Summary ---
Author Organization [facility] [address] Address [address] [place] [address] Phone Care Team Providers Care Foxer Name Role Phone Unknown, Notinfile Primary Care [...] on file Legal Sex Female 6:01 PM BLENDER Gender Identity Not on file Sexual Orientation [...] Plan of Treatment Not on file Insurance [facility] Advance Directives For more information, please contact: [phone] * Full Code (Latest Code Status on File) Date Activated Date Inactivated Comments 11/11/2020 8:52 AM 11/12/2020 7:35 PM * Full Code Date Activated Date Inactivated Comments 11/20/2018 6:44 PM 11/22/2018 7:14 PM * Full Code Date Activated Date Inactivated Comments 11/19/2018 5:50 PM 11/20/2018 6:44 PM Full CPR in case of cardiopulmonary arrest Care Teams Foxer Relationship Specialty Start Date End Date Unknown, Notinfile PCP - General 01/17/24
--- OUTSIDE RECORDS SUMMARY | 2025-02-18 17:22 | XMS_ITS | Encounter Summary ---
Author Organization [facility] Address [address] [place] [address] Care Team Providers Care Special Effects Makeup Artist Name Role Phone None, Provider Primary Care Provider Unavaila ble Encounter Details Date Type Department Care Team (Late st Contact Info) Description 01/17/2019 Abstract SFL CONVERSION [address] [place] [address] , Generic Conversion, Social History Tobacco Use Types Packs/Day Years Used Date Smoking Tobacco: Never Assessed Comments Unknown Sex and Gender Information Value Date Recorded Sex Assigned at Not on file Legal Sex Female 5:53 PM SLOT SHIFT SUPERVISOR Gender Identity Not on file Sexual Orientation Not on file documented as of this encounter Plan of Treatment Not on file documented as of this encounter Visit Diagnoses Not on filedocumented in this encounter Care Teams Special Effects Makeup Artist Relationship Specialty Start Date End Date None, Provider, PCP - General 05/23/19 documented as of this encounter
--- NOTE | 2025-02-18 17:36 | PC.NURSE ---
ERP notified that pt has taken 2000 mg of ibuprofen prior to arrival in the ER. Provider instruct RN to proceed with Toradol injection. ROSIE Minor witness.
[2025-02-18] MEDS: KETOROLAC (*BKC) 60 MG/2 ML VIAL IM (17:49)
--- OUTSIDE RECORDS SUMMARY | 2025-02-18 17:58 | XMS_ITS | Encounter Summary ---
Author Organization [facility] Address [address] [place] [address] Care Team Providers Care Art Objects Supervisor Name Role Phone None, Provider Primary Care Provider Unavaila ble Encounter Details Date Type Department Care Team (Late st Contact Info) Description 01/17/2019 Abstract SFL CONVERSION [address] [place] [address] , Generic Conversion, Social History Tobacco Use Types Packs/Day Years Used Date Smoking Tobacco: Never Assessed Comments Unknown Sex and Gender Information Value Date Recorded Sex Assigned at Not on file Legal Sex Female 5:53 PM CRTTS Gender Identity Not on file Sexual Orientation Not on file documented as of this encounter Plan of Treatment Not on file documented as of this encounter Visit Diagnoses Not on filedocumented in this encounter Care Teams Art Objects Supervisor Relationship Specialty Start Date End Date None, Provider, PCP - General 05/23/19 documented as of this encounter
--- OUTSIDE RECORDS SUMMARY | 2025-02-18 17:58 | XMS_ITS | Clinical Summary ---
Author Organization [facility] Address [address] [place] [address] Care Team Providers Care Fusing Machine Tender Name Role Phone None, Provider MD Primary [...] on file Legal Sex Female 5:53 PM ASSEMBLER FAUCETS Gender Identity Not on file Sexual Orientation Not on file Last Filed Vital Signs Vital Sign Reading Time Taken Comments Blood Pressure 127/83 06/30/2020 1:57 AM ASSEMBLER FAUCETS Pulse 119 06/30/2020 1:57 AM ASSEMBLER FAUCETS Temperature 36.9 C (98.4 F) 06/30/2020 1:57 AM ASSEMBLER FAUCETS Respiratory Rate 16 06/30/2020 1:57 AM ASSEMBLER FAUCETS Oxygen Saturation 99% 06/30/2020 1:57 AM ASSEMBLER FAUCETS Inhaled Oxygen Concentration - - Weight 65.8 kg (145 lb) 06/30/2020 1:57 AM ASSEMBLER FAUCETS Height 154.9 cm (5' 1) 06/30/2020 1:57 AM ASSEMBLER FAUCETS Body Mass Index 27.4 06/30/2020 1:57 AM ASSEMBLER FAUCETS Plan of Treatment Health Maintenance Due Date [...] patient's age to complete this topic Insurance [place] [address] Care Teams Fusing Machine Tender Relationship Specialty Start Date End Date None, Provider, PCP - General 05/23/19
--- OUTSIDE RECORDS SUMMARY | 2025-02-18 17:58 | XMS_ITS ---
Author Organization Unknown Plan of Treatment Description Planned Activity Planned Timing [facility] is a provider organization who partners directly with Health Plans and provides integrated primary care, behavioral health, and elementary school social worker for an attributed population Letter encounter to patientTelephone encounter Feb 04, 2025Jul 2024 Patient Care team information Name Category Status Period Participants - - Proposed period not known -
--- OUTSIDE RECORDS SUMMARY | 2025-02-18 17:58 | XMS_ITS | Clinical Summary ---
Author Organization [facility] [address] Address [address] [address] Phone Care Team Providers Care Community Health Consultant Name Role Phone Unknown, Notinfile Primary Care [...] on file Legal Sex Female 6:01 PM RELAY CHECKER Gender Identity Not on file Sexual Orientation [...] Geoffr ey Lowell, MD Complications:None Delivery Location:This [facility] it ([facility]) 2020 [...] 06/16/2012 Varicella Vaccines Completed 08/18/2014, 04/21/2014 Insurance [facility] Advance Directives For more information, please contact: [phone] * Full Code (Latest Code Status on File) Date Activated Date Inactivated Comments 11/11/2020 8:52 AM 11/12/2020 7:35 PM * Full Code Date Activated Date Inactivated Comments 11/20/2018 6:44 PM 11/22/2018 7:14 PM * Full Code Date Activated Date Inactivated Comments 11/19/2018 5:50 PM 11/20/2018 6:44 PM Full CPR in case of cardiopulmonary arrest Care Teams Community Health Consultant Relationship Specialty Start Date End Date Unknown, Notinfile PCP - General 01/17/24
--- OUTSIDE RECORDS SUMMARY | 2025-02-18 17:58 | XMS_ITS | Clinical Summary ---
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
--- OUTSIDE RECORDS SUMMARY | 2025-02-18 17:58 | XMS_ITS | Referral Summary ---
Author Organization [facility] [address] Address [address] [place] [address] Phone Care Team Providers Care Poultry Inspector Name Role Phone Unknown, Notinfile Primary Care [...] on file Legal Sex Female 6:01 PM PICK UP DRIVER Gender Identity Not on file Sexual [...] Plan of Treatment Not on file Insurance [facility] Advance Directives For more information, please contact: [phone] * Full Code (Latest Code Status on File) Date Activated Date Inactivated Comments 11/11/2020 8:52 AM 11/12/2020 7:35 PM * Full Code Date Activated Date Inactivated Comments 11/20/2018 6:44 PM 11/22/2018 7:14 PM * Full Code Date Activated Date Inactivated Comments 11/19/2018 5:50 PM 11/20/2018 6:44 PM Full CPR in case of cardiopulmonary arrest Care Teams Poultry Inspector Relationship Specialty Start Date End Date Unknown, Notinfile PCP - General 01/17/24
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
--- NOTE | 2025-02-18 19:40 | PC.NURSE ---
ERP aware of pt's vital signs. No new orders at this time.
[2025-02-18 19:45] VITALS: BP 148/109; PULSE 70; RESP 16; TEMP 36.6; O2SAT 99
== END 2025-02-18 19:45 | disposition home or self-care (01) ==
PROVIDERS: Emergency Provider Emergency Medicine
DX: S13.4XXA Sprain of ligaments of cervical spine, initial encounter (principal); F17.200 Nicotine dependence, unspecified, uncomplicated; V40.0XXA Car driver injured in collision with pedestrian or animal in nontraffic accident, initial encounter
CPT/HCPCS: 70450; 72125; 96372; 99284; J1885

== ENCOUNTER 2025-02-22 14:52 | Emergency (ER) | payer OTHER, SELFPAY ==
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
[2025-02-22 14:54] VITALS: BP 136/92; PULSE 78; RESP 16; TEMP 36.6; O2SAT 97
--- OUTSIDE RECORDS SUMMARY | 2025-02-22 14:57 | XMS_ITS | Referral Summary ---
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 Gender Identity Not on file Sexual [...] Plan of Treatment Not on file Insurance [facility] Advance Directives For more information, please contact: [phone] * Full Code (Latest Code Status on File) Date Activated Date Inactivated Comments 11/11/2020 8:52 AM 11/12/2020 7:35 PM * Full Code Date Activated Date Inactivated Comments 11/20/2018 6:44 PM 11/22/2018 7:14 PM * Full Code Date Activated Date Inactivated Comments 11/19/2018 5:50 PM 11/20/2018 6:44 PM Full CPR in case of cardiopulmonary arrest Care Teams Promotional Model Relationship Specialty Start Date End Date Unknown, Notinfile PCP - General 01/17/24
--- OUTSIDE RECORDS SUMMARY | 2025-02-22 14:57 | XMS_ITS ---
Author Organization Unknown Plan of Treatment Description Planned Activity Planned Timing [facility] is a provider organization who partners directly with Health Plans and provides integrated primary care, behavioral health, and social welfare administrator for an attributed population Letter encounter to patientTelephone encounter Feb 04, 2025Jul 2024 Encounters Encounter Type Performer Location Encounter Date Encoun ter Notes virtual - - [id number] no notes Patient Care team information Name Category Status Period Participants - - Proposed period not known -
--- OUTSIDE RECORDS SUMMARY | 2025-02-22 14:57 | XMS_ITS | Clinical Summary ---
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
--- OUTSIDE RECORDS SUMMARY | 2025-02-22 14:57 | XMS_ITS | Clinical Summary ---
Author Organization [facility] Address [address] [place] [address] Care Team Providers Care Record Producer Name Role Phone None, Provider MD Primary [...] on file Legal Sex Female 5:53 PM IMMIGRATION SPECIALIST Gender Identity Not on file Sexual Orientation Not on file Last Filed Vital Signs Vital Sign Reading Time Taken Comments Blood Pressure 127/83 06/30/2020 1:57 AM IMMIGRATION SPECIALIST Pulse 119 06/30/2020 1:57 AM IMMIGRATION SPECIALIST Temperature 36.9 C (98.4 F) 06/30/2020 1:57 AM IMMIGRATION SPECIALIST Respiratory Rate 16 06/30/2020 1:57 AM IMMIGRATION SPECIALIST Oxygen Saturation 99% 06/30/2020 1:57 AM IMMIGRATION SPECIALIST Inhaled Oxygen Concentration - - Weight 65.8 kg (145 lb) 06/30/2020 1:57 AM IMMIGRATION SPECIALIST Height 154.9 cm (5' 1) 06/30/2020 1:57 AM IMMIGRATION SPECIALIST Body Mass Index 27.4 06/30/2020 1:57 AM IMMIGRATION SPECIALIST Plan of Treatment Health Maintenance Due Date [...] patient's age to complete this topic Insurance [place] [address] Care Teams Record Producer Relationship Specialty Start Date End Date None, Provider, PCP - General 05/23/19
--- OUTSIDE RECORDS SUMMARY | 2025-02-22 14:57 | XMS_ITS | Encounter Summary ---
Author Organization 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
--- OUTSIDE RECORDS SUMMARY | 2025-02-22 14:57 | XMS_ITS | Clinical Summary ---
Author Organization CC [facility] [address] Address [address] [place] [address] Phone Care Team Providers Care Aviation Manager Name Role Phone Unknown, Notinfile Primary Care [...] Geoffr ey Lowell, MD Complications:None Delivery Location:This [facility] it ([facility]) [...] 06/16/2012 Varicella Vaccines Completed 08/18/2014, 04/21/2014 Insurance [facility] Advance Directives For more information, please contact: [phone] * Full Code (Latest Code Status on File) Date Activated Date Inactivated Comments 11/11/2020 8:52 AM 11/12/2020 7:35 PM * Full Code Date Activated Date Inactivated Comments 11/20/2018 6:44 PM 11/22/2018 7:14 PM * Full Code Date Activated Date Inactivated Comments 11/19/2018 5:50 PM 11/20/2018 6:44 PM Full CPR in case of cardiopulmonary arrest Care Teams Aviation Manager Relationship Specialty Start Date End Date Unknown, Notinfile PCP - General 01/17/24
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
--- OUTSIDE RECORDS SUMMARY | 2025-02-22 15:57 | XMS_ITS | Clinical Summary ---
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
--- OUTSIDE RECORDS SUMMARY | 2025-02-22 15:57 | XMS_ITS | Encounter Summary ---
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
--- OUTSIDE RECORDS SUMMARY | 2025-02-22 15:57 | XMS_ITS ---
Author Organization Unknown Plan of Treatment Description Planned Activity Planned Timing [facility] is a provider organization who partners directly with Health Plans and provides integrated primary care, behavioral health, and social worker school for an attributed population Letter encounter to patientTelephone encounter Feb 04, 2025Jul 2024 Encounters Encounter Type Performer Location Encounter Date Encoun ter Notes virtual - - [id number] no notes Patient Care team information Name Category Status Period Participants - - Proposed period not known -
--- OUTSIDE RECORDS SUMMARY | 2025-02-22 15:57 | XMS_ITS | Clinical Summary ---
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 Gender Identity Not on file Sexual Orientation [...] Geoffr ey Lowell, MD Complications:None Delivery Location:This [facility] it ([facility]) 2020 [...] Completed 08/18/2014, 04/21/2014 Insurance [facility] Advance Directives For more information, please contact: [phone] * Full Code (Latest Code Status on File) Date Activated Date Inactivated Comments 11/11/2020 8:52 AM 11/12/2020 7:35 PM * Full Code Date Activated Date Inactivated Comments 11/20/2018 6:44 PM 11/22/2018 7:14 PM * Full Code Date Activated Date Inactivated Comments 11/19/2018 5:50 PM 11/20/2018 6:44 PM Full CPR in case of cardiopulmonary arrest Care Teams Anesthesia Director Relationship Specialty Start Date End Date Unknown, Notinfile PCP - General 01/17/24
--- OUTSIDE RECORDS SUMMARY | 2025-02-22 15:57 | XMS_ITS | Referral Summary ---
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 Gender Identity Not on file Sexual Orientation [...] Plan of Treatment Not on file Insurance [facility] Advance Directives For more information, please contact: [phone] * Full Code (Latest Code Status on File) Date Activated Date Inactivated Comments 11/11/2020 8:52 AM 11/12/2020 7:35 PM * Full Code Date Activated Date Inactivated Comments 11/20/2018 6:44 PM 11/22/2018 7:14 PM * Full Code Date Activated Date Inactivated Comments 11/19/2018 5:50 PM 11/20/2018 6:44 PM Full CPR in case of cardiopulmonary arrest Care Teams Director Of Video Analytics Relationship Specialty Start Date End Date Unknown, Notinfile PCP - General 01/17/24
--- OUTSIDE RECORDS SUMMARY | 2025-02-22 15:57 | XMS_ITS | Clinical Summary ---
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 Gender Identity Not on file Sexual Orientation Not on file Last Filed Vital Signs Vital Sign Reading Time Taken Comments Blood Pressure 127/83 06/30/2020 1:57 AM CLINICAL NURSING PROFESSOR Pulse 119 06/30/2020 1:57 AM CLINICAL NURSING PROFESSOR Temperature 36.9 C (98.4 F) 06/30/2020 1:57 AM CLINICAL NURSING PROFESSOR Respiratory Rate 16 06/30/2020 1:57 AM CLINICAL NURSING PROFESSOR Oxygen Saturation 99% 06/30/2020 1:57 AM CLINICAL NURSING PROFESSOR Inhaled Oxygen Concentration - - Weight 65.8 kg (145 lb) 06/30/2020 1:57 AM CLINICAL NURSING PROFESSOR Height 154.9 cm (5' 1) 06/30/2020 1:57 AM CLINICAL NURSING PROFESSOR Body Mass Index 27.4 06/30/2020 1:57 AM CLINICAL NURSING PROFESSOR Plan of Treatment Health Maintenance Due Date [...] patient's age to complete this topic Insurance [address] [place] [address] Care Teams Loop Tacker Relationship Specialty Start Date End Date None, Provider, PCP - General 05/23/19
[2025-02-22] MEDS: ACETAMINOPHEN 500 MG TABLET 1000 MG PO (16:10)
[2025-02-22] MEDS: IBUPROFEN 600 MG TABLET PO (16:11)
[2025-02-22 16:18] VITALS: BP 131/89; PULSE 72; RESP 18; TEMP 37; O2SAT 97
== END 2025-02-22 16:40 | disposition home or self-care (01) ==
LOC: CHSED 15:55
PROVIDERS: Emergency Provider Emergency Medicine
DX: R51.9 Headache, unspecified (principal); F07.81 Postconcussional syndrome; M54.2 Cervicalgia; F17.200 Nicotine dependence, unspecified, uncomplicated; V40.0XXA Car driver injured in collision with pedestrian or animal in nontraffic accident, initial encounter
CPT/HCPCS: 70450; 72125; 99284; A9270